=== PATIENT | male | born 1945 | race Caucasian/White ===

== ENCOUNTER 2019-09-15 15:14 | Inpatient (IN) | payer MEDICARE ==
[~2019-09-15] VITALS: Ht 187.9 cm; Wt 86.2 kg
[2019-09-15] MEDS ORDERED: NORVASC5 MG PO (15:23)
[2019-09-15] MEDS ORDERED: SINEMET 25-1001 EACH PO (15:24)
[2019-09-15] MEDS ORDERED: DEPAKOTE SPRIN125 MG PO ×2 (15:26→15:27)
[2019-09-15] MEDS ORDERED: NAMENDA10 MG PO (15:28)
[2019-09-15] MEDS ORDERED: NUPLAZID34 MG PO (15:33)
[2019-09-15] MEDS ORDERED: EXELON1 EAC2 TD (15:35)
[2019-09-15] MEDS ORDERED: FLOMAX0.4 MG PO (15:36)
[2019-09-15 17:13] VITALS: BP 138/63
--- NOTE | 2019-09-15 17:24 | NUR ---
THOMPSON MARSHALL a 73 year old M admitted via ambulance from the EMERGENCY ROOM as a voluntary BY POA admission. Arrived on unit at 1700. ALLERGIES: NKA. Vital signs are: 97.8-76-20 138/63 SPO2 98%RA. The client's POA verbally consented to the following forms with stated understanding: Authorization For The Release of Medical Information, Clothing List, Consent to Voluntary Admission and Hospitalization, Consent and Release Forms/Receipt of Rights, Acknowledgement of Advance Directive Information, Behavioral Health Consent Form, and Informed Consent of Medications, witnessed x 2 RNs. Admitted under the services of Dr. CEFERINO MELGAR,[facility]. A search was conducted and hazardous articles were removed. Client was oriented to the unit. CRISTI NOEL
--- NOTE | 2019-09-15 17:25 | NUR ---
Call placed to hospitalist #1 at [phone]. Dr. Persaud answered, made aware of new consult for medical management.
[2019-09-15] MEDS ORDERED: AUGMENTIN 875875 MG PO (17:32)
--- NOTE | 2019-09-15 17:45 | NUR ---
SHAHANA SOLIS SOCAIL WORKER UPDATED ON PT ADMISSION AND VOLUNTARY BY POA STATUS.
--- NOTE | 2019-09-15 17:47 | NUR ---
DR WALLACE ON THE UNIT TO ASSESS PT.
[2019-09-15 19:50] VITALS: BP 141/60
--- NOTE | 2019-09-15 20:30 | NUR ---
SHAHANA SOLIS ON UNIT TO SEE PATIENT
--- NOTE | 2019-09-15 21:53 | NUR ---
PSYCHOSOCIAL HX COMPLETED THIS DATE.
--- NOTE | 2019-09-15 23:34 | NUR ---
P-CONFUSION,IRRITABLE, DEMANDING I-REDIRECTION WITH 1:1 THERAPEUTIC INTERVENTIONS AND PRESENT REALITY. EDUCATE AND ENCOURAGE MEDICATION COMPLIANCE. R-PATIENT MEDICATION COMPLIANT AT HS. PATIENT PROVIDED NOURISHMENT AND FLUIDS AT HS. PATIENT ISOLATIVE AT TIMES AND WITH LIMITED INTERACTION WITH PEERS THIS SHIFT. PATIENT IRRITABLE THIS SHIFT WHEN NOT ABLE TO KEEP A CORDLESS PHONE IN HIS ROOM OVERNIGHT. PATIENT REDIRECTED WITH EFFECTIVE RESULTS. PATIENT WITH NO SUICIDAL OR HOMICIDAL IDEATIONS. PATIENT WITH NO DELUSIONS OR HALLUCINATIONS AT THIS TIME. PATIENT WITH SMITH CATHETER IS PATENT AND DRAINING CLOUDY YELLOW URINE. P-CONTINUE TO ENCOURAGE MEDICATION COMPLIANCE, CONTINUE TO PRESENT REALITY, ENCOURAGE GROUP THERAPY WHILE AWAKE
--- NOTE | 2019-09-16 06:21 | NUR ---
REFUSED ALL AM LAB WORK
--- NOTE | 2019-09-16 07:46 | NUR ---
Patient eating breakfast in dining room with peers. Respirations easy and regular. Vital signs stable. No overt distress. NAOMI CUEVAS
[2019-09-16 08:16] VITALS: BP 128/64
--- NOTE | 2019-09-16 10:30 | NUR ---
on unit to see pt at this time.
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
[2019-09-16 20:00] VITALS: BP 148/77
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
--- NOTE | 2019-09-16 22:05 | NUR ---
PLACED CLOSER TO NURSES DESK FOR SAFETY. UNABLE TO REDIRECT. CALLING FOR SULMA. EMOTIONAL SUPPORT PROVIDED
--- NOTE | 2019-09-16 22:10 | NUR ---
PLACED CLOSER TO NURSES DESK FOR SAFETY. UNABLE TO REDIRECT. CALLING FOR SULMA. EMOTIONAL SUPPORT PROVIDED
--- NOTE | 2019-09-16 22:41 | NUR ---
ATIVAN 1MG IM GIVEN CLIENT UNABLE TO BE CALMED WITH EMOTIONAL SUPPORT, 1:1 OR FOOD. POUNDING ON TABLE AND SWINGING AT STAFF. WILL CONTINUE TO MONITOR FOR EFFECTIVENESS AND SAFETY
--- NOTE | 2019-09-16 23:20 | NUR ---
ATIVAN APPEARS EFFECTIVE. RESTING QUIET WITH EYES CLOSED,
--- NOTE | 2019-09-17 00:19 | NUR ---
24 HR chart check completed.
--- NOTE | 2019-09-17 06:10 | NUR ---
SLEPT 6-7 HOURS IN CHAIR UNINTERUPTED. MOVED SELF IN CHAIR.
[2019-09-17 07:09] LABS: BASO % 0.5 % (0.0-1.0); EOS # 0.2 10*3/uL (0.0-0.4); EOS % 2.4 % (1.0-4.0); LYMPH # 1.3 10*3/uL (1.3-4.4); LYMPH % 17.7 % (27.0-41.0); MEAN CELL VOLUME 90.7 fl (80.0-94.0); MEAN CORPUSCULAR HGB 29.9 pg (27.0-31.0); MEAN CORPUSCULAR HGB CONC 32.9 g/dl (33.0-37.0); MEAN PLATELET VOLUME 9.7 fl (9.6-12.3); MONO # 0.9 10*3/uL (0.1-1.0); NEUT # 4.9 10*3/uL (2.3-7.9); NEUT % 66.4 % (47.0-73.0); PLATELET COUNT AUTOMATED 232 10*3/uL (130-400); RED BLOOD COUNT 4.52 10*6/uL (4.50-5.90); RED CELL DISTRI WIDTH 13.1 % (0-14.5); WHITE BLOOD COUNT 7.4 10*3/uL (4.8-10.8)
[2019-09-17 07:25] LABS: ALBUMIN 2.9 gm/dl (3.1-4.5); ALKALINE PHOSPHATASE 57 U/L (45-117); BUN 15 mg/dl (7-24); CHLORIDE 107 mmol/L (98-107); CHOLESTEROL 148 mg/dL (<200); CREATININE 0.88 mg/dL (0.70-1.30); HDL CHOLESTEROL 58 mg/dl (40-60); LDL CHOLESTEROL 75 mg/dL (9-159); POTASSIUM 3.9 mmol/L (3.5-5.1); SGOT/AST 21 IU/L (3-35); SGPT/ALT 16 U/L (12-78); SODIUM 142 mmol/L (136-145); TOTAL PROTEIN 6.7 gm/dL (6.4-8.2); TRIGLYCERIDES 76 mg/dl (<150); VALPROIC ACID (DEPAKENE) 37.8 ug/ml (50-100); VLDL CHOLESTEROL 15 mg/dL (6-40)
[2019-09-17 07:44] VITALS: BP 140/72
[2019-09-17 08:01] LABS: VITAMIN D, 25-HYDROXY 26.2 ng/mL (30-100)
--- NOTE | 2019-09-17 10:53 | NUR ---
DR RODRIGUEZ ON UNIT TO ASSESS PT, UPDATE PROVIDED.
--- NOTE | 2019-09-17 16:48 | NUR ---
P: PT IRRITABLE WITH STAFF AT TIMES. PT DISRUPTIVE TO REY MILEUI, YELLING OUT FOR "ODILON" MULTIPLE TIMES THROUGHOUT THE SHIFT, POUNDING ON THE TABLE. PT RESTLESS, ATTEMPTING TO PULL AT SMITH CATHETER. PT COMBATIVE WITH STAFF AT TIMES, ATTEMPTING TO HIT. PT RESISITIVE WITH AM PO MEDS, SPITTING THEM OUT. I: PROVIDE EMOTIONAL SUPPORT AND 1:1 FOR PT TO VOICE FEELINGS, ENCOURAGE MED COMPLIANCE AND PROVIDE MED EDUCATION, PROVIDE LOW STIMULATION ENVIRONMENT FOR PT TO CALM R: PT ALERT TO PERSON ONLY, CONFUSION AND SHORT TERM MEMORY DEFICITS NOTED PER PT BASELINE. PT CONTINUES TO BE RESTLESS AT TIMES, CONTINUES TO YELL OUT AT TIMES, LOW STIMULATION ENVIRONMENT MINIMALLY EFFECTIVE. NO HALLUCINATIONS NOTED AT THIS TIME. PT UP TO A GERICHAIR D/T INABILITY TO AMBULATE INDEPENDENTLY , PT REQUIRES 1-2 STAFF ASSIST FOR CARE. PT SMITH REMAINS INTACT, DRAINING CLOUDY, YELLOW URINE. PT INCONTINENT OF BOWEL, CARE PROVIDED NEEDED. P: MONITOR PT BEHAVIORS ON Q15 MIN SAFETY CHECKS, ENCOURAGE MED COMPLIANCE, UNABLE TO PROVIDE MED EDUCATION D/T COGNITION, PROVIDE EMOTIONAL SUPPORT AND 1:1 FOR PT TO VOICE FEELINGS, PROVIDE LOW STIMULATION ENVIRONMENT FOR PT TO CALM.
[2019-09-17 20:00] VITALS: BP 145/76
--- NOTE | 2019-09-17 22:05 | NUR ---
PT YELLING OUT "HURRY HURRY HURRY" REPEATEDLY AND BANGING ON TABLE, INCREASED RESTLESSNESS AND AGITATION. 1:1 PROVIDED FOR TO VOICE FEELINGS, LOW STIMULATION ENVIRONEMENT PROVIDED, OFFERED FOOD/FLUIDS, ALL INTERVENTIONS INEFFECTIVE, PT MEDICATED WITH ATIVAN 1 MG PO PRN PER ORDERS. WILL CONTINUE TO MONITOR.
--- NOTE | 2019-09-17 23:09 | NUR ---
ATIVAN NOT EFFECTIVE AT THIS TIME. MOVED CLIENT TO DININGROOM HE IS POUNDING ON TRAY AND YELLING OUT, DISRUPTING CLIENTS TRYING TO SLEEP. CLIENT CONFUSED AND DISORIENTED TO PLACE AND TIME UNABLE TO REDIRECT. CONTINUING TO MONITOR CLOSELY
--- NOTE | 2019-09-18 00:29 | NUR ---
RESTING QUIET AT THIS TIME
--- NOTE | 2019-09-18 00:29 | NUR ---
RESTING QUIET AT THIS TIME
--- NOTE | 2019-09-18 02:37 | NUR ---
24 HR chart check completed.
--- NOTE | 2019-09-18 06:11 | NUR ---
SLEPT 7 UNINTERUPTED HOURS. MOVED SELF AROUND IN CHAIR
--- NOTE | 2019-09-18 06:11 | NUR ---
SLEPT 7 UNINTERUPTED HOURS. MOVED SELF AROUND IN CHAIR
--- NOTE | 2019-09-18 07:02 | NUR ---
THOMPSON MARSHALL [id number] Please refer to the physician's history and physical for past medical history, comorbid conditions, and allergies. Diagnosis: INTERMITTENT EXPLOSIVE DISORDER Giancarlo Score: 13,MODERATE RISK WOUND DESCRIPTIONS: Wound Number: 1 Location of the wound: left wrist Type of wound: skin tear Thickness: Full Size: 1.6cm x 1.2cm x <0.1cm Tunneling: none Undermining: none Sinus Tract: none Presence of Exudate: none Amount: None Color: brown, red Odor: None Periwound Skin Appearance: Normal Wound edges: approximated Pain (associated with wound): none at time of assessment How does patient state this happened? pt stated he bumped it but not sure on what Intact scab to dorsal right hand. no redness noted at time of assessment. no drainage at time of assessment Surface the patient is resting on: Proform SKIN PREVENTION RECOMMENDATION: 1. Pressure redistribution support surface as appropriate 2. Elevate heels 3. Remove boots/TEDS every shift and reapply 4. Head of bed 30 degrees as tolerated 5. Assess nutrition and hydration 6. Manage moisture 7. Avoid the use of containment devices while in bed 8. Use absorptive products on surfaces limit layers of linens on bed 9. Turn and reposition every 1-2 hours in bed and every 1 hour in chair as tolerated 10. Weight shifts every 15 minutes while up in chair 11. Offloading with pillows or device to keep heels elevated off bed 12. Monitor skin at least every shift 13. Inspect under medical devices twice a day WOUND TREATMENT RECOMMENDATIONS: Babar skin tear guidelines: Cleanse left wrist with nss and apply sureprep around the wound therahoney to wound bed and cover with optifoam gentle every 2 days and prn for soiling
[2019-09-18 07:42] VITALS: BP 125/70
--- NOTE | 2019-09-18 07:59 | NUR ---
Occupational therapy orders and nursing screen received. Will follow up with patient for completion of an OT evaluation. Thank you. Kellie Michelle, OTR/L
--- NOTE | 2019-09-18 08:13 | NUR ---
PHYSICAL THERAPY Screen and PT eval received will follow thank you Briana Weston PT
--- NOTE | 2019-09-18 08:15 | NUR ---
Treatment Plan meeting was held via telephone with Dr. Clay, LUAN Stokes RN and Manufacturing Engineer Chief. Plan for discharge next week. Pt. came [facility]. Will reach out to facility today to discuss discharge Plans.
--- NOTE | 2019-09-18 09:38 | NUR ---
PHYSICAL THERAPY Physical therapy evaluation attempted. Patient lethargic and unable to follow commands to participate in skilled PT evaluation this date. Will attempt PT evaluation again at a later date. Thank you. Karly Long,PT,DPT.
--- NOTE | 2019-09-18 09:38 | NUR ---
SPEECH PATHOLOGY Nursing screen complete. Reports indicate patient underwent a recent swallow study at [facility] and did well, with mechanical soft diet recommended. There are no reports of swallowing difficulty therefore services do not appear indicated at this time. This dept. will be available if future needs arise. JANAK GUERRERO MSCCC-PHOTOGRAPHER'S MODEL
--- NOTE | 2019-09-18 10:21 | NUR ---
Occupational Therapy evaluation attempted 09/18/2019. Pt presented lethatic and unable to participate in skilled OT evaluation. Will attempt OT evlauation again at a later date. Thank you for this referral. Lachelle Barnett OTR/L
--- NOTE | 2019-09-18 10:58 | NUR ---
Dr. Farmer notified of wound care recommendations.
--- NOTE | 2019-09-18 11:43 | NUR ---
Spoke with Patient Alecia Villa via telephone. Discussed Discharge Plans for Next week. Pt. would like him to return to [facility]. reports that patient follows with Dr. Coronel in [place] for Urinary Retention and Enlarged Prostate Issues.
--- NOTE | 2019-09-18 13:28 | NUR ---
PT quiet this am, sleeping in chair thus far this shift, appetite fair, medication compliant. Pt continues to drool with out awareness to self. No tremors or other movements noted. At this time pt is pleasant cooperative with all aspects of care. continue with monitoring at this time
--- NOTE | 2019-09-18 14:45 | NUR ---
Spoke with Ml at [facility]. Plan is for pt. to return to facility when behaviors stabalize. Clinical Updates faxed to facility [phone].
--- NOTE | 2019-09-18 15:28 | NUR ---
Shift chart check completed.
--- NOTE | 2019-09-18 20:51 | NUR ---
CLIENT POUNDING ON TABLE YELLING FOR PHONE. WANTS REPORT ON THEN STARTS WORD SALAD. ANSWERS MY QUESTIONS WITH 1 AND 2 WORD. STARTED TALKING ABOUT GOLF SCRAMBLE AND GOLF T'S. MEDICATION COMPLIANT. WILL CONTINUE TO MONITOR CLOSELY
--- NOTE | 2019-09-18 21:40 | NUR ---
APPEARS TO BE RESTING QUIET AT THIS TIME
--- NOTE | 2019-09-18 22:24 | NUR ---
SLEEPING IN BED AT THIS TIME
--- NOTE | 2019-09-18 22:25 | NUR ---
SLEEPING IN BED AT THIS TIME
--- NOTE | 2019-09-19 02:08 | NUR ---
24 HR chart check completed.
--- NOTE | 2019-09-19 03:34 | NUR ---
Upon discharge recommend patient to follow up for wound care in outpatient setting continue current wound care orders at discharging facility.
--- NOTE | 2019-09-19 04:35 | NUR ---
RESTLESS IN BED. ORAL CARE DONE. GURGLING AND DROOLING NOTED. SUCTIONED FOR SCANT WHITE/CLEAR SPUTUM. GOT CLIENT INTO CHAIR AND BROUGHT TO QUIET ROOM. YELLING OUT AND POUNDING ON TABLE. EMOTIONAL SUPPORT PROVIDED.
--- NOTE | 2019-09-19 06:18 | NUR ---
SLEPT APPROX 6.5 HOURS IN BED
[2019-09-19 07:45] VITALS: BP 142/62
--- NOTE | 2019-09-19 08:15 | NUR ---
Treatment Plan meeting was held via telephone with Dr. Clay, LUAN Stokes RN, CD REACTOR OPERATOR-S and Construction Equipment Overhauler. Plan for discharge Next week. Plan for return to [facility].
--- NOTE | 2019-09-19 09:58 | NUR ---
PHYSICAL THERAPY Physical Therapy evaluation completed on 3N with full evaluation to follow. Moderate complexity PT evaluation, per chart review and evaluation, [id number]. Recommend physical therapy per plan of care and return to assisted living facility upon discharge. Thank you for this referral. Karly Long,PT,DPT
--- NOTE | 2019-09-19 10:34 | NUR ---
Occupational Therapy evaluation completed on 3N with full evaluation to follow. Recommend occupational therapy per plan of care and return to [facility] upon discharge. Thank you for this referral. Lachelle Barnett OTR/L
[2019-09-19 19:59] VITALS: BP 133/67
--- NOTE | 2019-09-19 23:41 | NUR ---
P-CONFUSION,IRRITABLE, AGGRESSIVE, DISRUPTIVE, YELLING OUT I-REDIRECTION WITH 1:1 THERAPEUTIC INTERVENTIONS AND PRESENT REALITY. EDUCATE AND ENCOURAGE MEDICATION COMPLIANCE. R-PATIENT REFUSED MEDICATION COMPLIANT AT HS. PATIENT REFUSED NOURISHMENT AND FLUIDS AT HS. PATIENT ISOLATIVE AT TIMES THROUGHOUT SHIFT. PATIENT IRRITABLE THIS SHIFT AND AGGRESSIVE WITH NURSING STAFF. PATIENT GRABBING NURSES ARMS AND HANDS. PATIENT THROWING OBJECTS IN QUIET ROOM AND HITTING OBJECTS IN QUIET ROOM. PATIENT YELLING OUT WITH NONSENSICAL SPEECH. PATIENT DISROBING THIS SHIFT. PATIENT WITH NO SUICIDAL OR HOMICIDAL IDEATIONS. PATIENT WITH NO DELUSIONS OR HALLUCINATIONS AT THIS TIME. PATIENT WITH SMITH CATHETER IS PATENT AND DRAINING CLOUDY YELLOW URINE. P-CONTINUE TO ENCOURAGE MEDICATION COMPLIANCE, CONTINUE TO PRESENT REALITY, ENCOURAGE GROUP THERAPY WHILE AWAKE
--- NOTE | 2019-09-20 06:35 | NUR ---
Patient slept approx. 6 hours throughout shift with a few restless moments. Q 15 minute safety checks continued and maintained.
--- NOTE | 2019-09-20 07:20 | NUR ---
PHYSICAL THERAPY Patient seen this am for therapy visit and was sitting semi reclined in Quiet room [facility] chair upon therapist arrival. Patient identified by name / and was joined by OT integration assistant who was present for observation only this session. Patient presented with increased "drooling" and responded verbally in a "mumbling" tone at times which made it difficult to understand. Patient transported via [facility]a chair to [facility] and performed several sit to stand transfers, B UE support at rail, MIN A x 2, tolerating approx 1 minute static stand. Patient demonstrated POOR upright posture, secondary to increased B knne flexion contracture and NBOS. Patient also ambulated at raar, 8'x 1, single handrail support, SOLAR INSTALLATION FOREMAN/MOD, demonstrating increased difficulty picking up / advancing feet, with decreased stride. Patient needed therapist assist to promote weight shifting, including v/c to stand tall. Patient returned to [facility] chair with body alarm / lap tray and remained in activity room under [facility] staff Supervision awaiting breakfast. Will continue per POC as tolerated, total treatment time 14 minutes. Jerrod Kaiser, ANCHOR OPERATOR
--- NOTE | 2019-09-20 07:40 | NUR ---
OT NOTE Prior to coming to the floor spoke with nurse Lawson and reported that therapy was coming to the floor to treat this pt. Pt was seen this A.M. 1:1 for 20 minute OT session with CIDER MAKER and nursing staff present for observation only. Upon arrival pt was sitting upright in the irina chair in the quiet room. Pt identified by name and on wristband. PROM completed to BUE shoulder, elbow, wrist, and digit joints over all planes of motion for 1 X 10. Pt was much more resistive to movement to his LUE than his RUE with constant verbal and tactile prompts for relaxation techniques. Pt was then taken out to the hallway where he completed multiple sit to stand transfers from chair level with Manny X 2 and use of hand rail for UE support. Challenged pt's static standing tolerance needed for increased I in self care tasks and functional transfers, pt was able to tolerate aprox 60 seconds at a time before sitting due to fatigue. Pt was left sitting upright in the irina chair in the dining acosta under [facility] staff supervision, body alarm activated for safety, and lap tray in place. Continue with rec D/C plan to return to [facility]. ALYSSA Larsen/Nahum
[2019-09-20 08:00] VITALS: BP 141/65
--- NOTE | 2019-09-20 08:15 | NUR ---
Treatment Plan meeting was held via telephone with Dr. Clay RN, TAILMAN-S and Kaiawhina. Plan for discharge Next Week. Plan is for Pt. to return to [facility] if Behaviors are manageable. Pt. may require SNF. Will discuss with Pt. .
--- NOTE | 2019-09-20 08:58 | NUR ---
rounded and updated on pt progress via telemedicine. Medication orders updated per .
[2019-09-20 11:25] LABS: BASO # 0.1 10*3/uL (0.0-0.1); BASO % 0.6 % (0.0-1.0); EOS # 0.1 10*3/uL (0.0-0.4); EOS % 0.9 % (1.0-4.0); HEMATOCRIT 42.1 % (42.0-52.0); LYMPH # 1.5 10*3/uL (1.3-4.4); LYMPH % 17.1 % (27.0-41.0); MEAN CELL VOLUME 91.7 fl (80.0-94.0); MEAN CORPUSCULAR HGB 29.4 pg (27.0-31.0); MEAN CORPUSCULAR HGB CONC 32.1 g/dl (33.0-37.0); MEAN PLATELET VOLUME 9.8 fl (9.6-12.3); MONO # 0.9 10*3/uL (0.1-1.0); MONO % 10.7 % (3.0-9.0); NEUT % 69.9 % (47.0-73.0); PLATELET COUNT AUTOMATED 229 10*3/uL (130-400); RED BLOOD COUNT 4.59 10*6/uL (4.50-5.90); RED CELL DISTRI WIDTH 13.2 % (0-14.5); WHITE BLOOD COUNT 8.6 10*3/uL (4.8-10.8)
[2019-09-20 11:41] LABS: BUN 20 mg/dl (7-24); CHLORIDE 108 mmol/L (98-107); CREATININE 0.84 mg/dL (0.70-1.30); POTASSIUM 4.4 mmol/L (3.5-5.1); SODIUM 142 mmol/L (136-145)
--- NOTE | 2019-09-20 13:12 | NUR ---
DR. CLIFTON MADE AWARE THAT PT HAS SIGNIFICANT DECLINE IN FUNCTIONAL ABILITY. PT IS NO LONGER VERBAL, PO INTAKE POOR, PT HAS DIFFUSE RHONCHI, LUNG SOUNDS DIMINISHED A&P. MADE AWARE OF DOWNGRADED DIET ORDER, AND ORDER FOR SPEECH CONSULT PLACED YESTERDAY. DR. CLIFTON STATES TO AWAIT SPEECH CONSULT AND POC CAN BE GUIDED FROM THERE.
[2019-09-20 20:00] VITALS: BP 129/73
--- NOTE | 2019-09-20 21:56 | NUR ---
P-CONFUSION,IRRITABLE, DISRUPTIVE I-REDIRECTION WITH 1:1 THERAPEUTIC INTERVENTIONS AND PRESENT REALITY. EDUCATE AND ENCOURAGE MEDICATION COMPLIANCE. R-PATIENT REFUSED MEDICATION COMPLIANT AT HS. PATIENT PROVIDED NOURISHMENT AND FLUIDS AT HS. PATIENT ISOLATIVE IN DINING AREA THROUGHOUT SHIFT. PATIENT IRRITABLE AND YELLING OUT AT TIMES SHIFT NURSING STAFF. PATIENT THROWING OBJECTS IN QUIET ROOM AND MOVING FURNITURE IN QUIET ROOM. PATIENT YELLING OUT WITH NONSENSICAL SPEECH AT TIMES. PATIENT DISROBING THIS SHIFT. PATIENT WITH NO SUICIDAL OR HOMICIDAL IDEATIONS. PATIENT WITH NO DELUSIONS OR HALLUCINATIONS AT THIS TIME. PATIENT WITH SMITH CATHETER IS PATENT AND DRAINING CLOUDY YELLOW URINE. P-CONTINUE TO ENCOURAGE MEDICATION COMPLIANCE, CONTINUE TO PRESENT REALITY, ENCOURAGE GROUP THERAPY WHILE AWAKE
--- NOTE | 2019-09-21 06:22 | NUR ---
Patient slept approx. 2 hours throughout shift. Q 15 minute safety checks continued and maintained.
--- NOTE | 2019-09-21 07:32 | NUR ---
PHYSICAL THERAPY Physical therapy treatment session complete. Total treatment time: 16 minutes. Patient agreeable to skilled PT services. Patient in dining room at beginning of session, and taken into hallway for participation. OT present throughout treatment. Patient taken to railing for sit to stand activity from irina chair. Patient's hands placed on rail with assistance. Standing x2. Initial stand Joaquim x2 with verbal and tactile cueing for increased upright posture. Patient able to stand 24 seconds. Patient returned to seated position. Second attempt to stand ModA x2. Patient able to stand for 60 seconds and then returned to seated position in chair. Patient rested ~2 minutes. Patient transferred to standing position at FWW, ModA. Patient assisted to place hands on walker, and attempted to walk. Patient required verbal and tacile cueing for slight progression of left and right LE in forward motion. Patient having difficulty initiating steps forward. Able to progress 1' forward/back with Mod-MaxA. Patient returned to seated position. Seated therapeutic exercises performed, including seated alternating marching x10 and seated bilateral LAQ x10. Patient educated to take large steps and mimic high stepping with kicking foward to progress gait. Patient transferred to standing, Min-Mod and stood at FWW. Patient able to perform high knee with forward kicking x3 bilaterally. Patient unable to progress forward with gait this date. Patient returned to seated position and taken to dining room for breakfast. Patient would benefit from SNF at discharge to return to [facility]. Recommend SNF. Thank you. Karly Long,PT,DPT.
--- NOTE | 2019-09-21 07:50 | NUR ---
OT NOTE Prior to coming to the floor spoke with nurse Lawson and reported that therapy was coming to treat this pt. Pt was seen this A.M. 1:1 for 20 minute OT session with PT and nursing staff present for observation only. Upon arrival pt was sitting semi reclined in the irina chair in the dining acosta. Pt identified by name and on wristband. Pt was taken out to the hallway where he completed multiple sit to stand transfers from chair level with min-modA X 2 and use of hand rail for UE support. Challenged pt's static standing tolerance needed for increased I in self care tasks and functional transfers. Pt was able to tolerate aprox 24 seconds the first trial and then aprox 60 seconds for all other attempts. Pt completed gentle AROM to BUE shoulder, elbow, wrist, and digit joints over all planes of motion for 1 X 10 to increase and restore maximum functional use. Pt was left sitting upright in the dining acosta in his irina chair with lap tray in place, body alarm activated for safety, and under [facility] staff supervision. Continue with rec D/C plan to return to [facility]. ALYSSA Larsen/Nahum
[2019-09-21 07:55] VITALS: BP 137/67
--- NOTE | 2019-09-21 08:00 | NUR ---
Patient in dining room eating breakfast with peers. Respirations easy and regular. Vital signs stable. No overt distress. Telehealth assessment by VIKAS Watson. Updates provided. CRISTI NOEL
--- NOTE | 2019-09-21 08:15 | NUR ---
Treatment Plan meeting was held via telephone with LUAN Stokes RN, CORPORATE LEGAL SECRETARY-S and Real Estate Associate Attorney. Plan for discharge next Week. Unsure at this point if Pt. is appropriate for Return to [facility]. Laundry Housekeeping Aide to speak with today.
--- NOTE | 2019-09-21 09:20 | NUR ---
KYRA BELTRAN SAP PP CONSULTANT ON UNIT TO ASSESS PT, UPDATE PROVIDED.
--- NOTE | 2019-09-21 10:35 | NUR ---
Left a voicemail message for pt's Radha Morel requesting a return call to discuss discharge needs.
--- NOTE | 2019-09-21 10:49 | NUR ---
Family mtg with pt's Radha Morel about pt's discharge needs. Radha Morel voiced understanding that pt is currently requiring a higher LOC than [facility] can provide. Discussed NFs. Radha Morel stated that she is open to different vicinities for NFs. She requests that it not be [facility]. Depending on pt's behaviors, she would like a referral to [facility] and [facility]. It was decided that this verse writer would contact Radha Morel on Tuesday to discuss further. The hope is that pt's behaviors will be more controlled, which will enable the referrals to be made to the preferred NFs.
--- NOTE | 2019-09-21 11:16 | NUR ---
PT ANALY CALLED IN FOR UPDATE, UPDATE PROVIDED.
--- NOTE | 2019-09-21 14:29 | NUR ---
GROUP THERAPY PT PRESENT FOR MOVIES, SNACK, AND REMINISCING; HOWEVER, PT WAS INTERMITTENTLY DISRUPTIVE. PT WENT TO QUIET ROOM FOR LESS STIMULATION.
--- NOTE | 2019-09-21 14:46 | NUR ---
OCCUPATIONAL THERAPY CO-SIGN I approve of the Occupational Therapy notes written above. Lachelle Barnett OTR/L
[2019-09-21 20:00] VITALS: BP 138/72
--- NOTE | 2019-09-22 01:19 | NUR ---
P-CONFUSION,IRRITABLE, DISRUPTIVE I-REDIRECTION WITH 1:1 THERAPEUTIC INTERVENTIONS AND PRESENT REALITY. EDUCATE AND ENCOURAGE MEDICATION COMPLIANCE. R-PATIENT MEDICATION COMPLIANT AT HS. PATIENT PROVIDED NOURISHMENT AND FLUIDS AT HS. PATIENT ISOLATIVE IN QUIET ROOM AT HS. PATIENT IRRITABLE AND YELLING OUT AT TIMES "NONI" AND "DEVONTE". PATIENT BANGING ON OBJECTS AND REDIRECTION PROVIDED FROM BANGING ON OBJECTS. PATIENT WITH NO SUICIDAL OR HOMICIDAL IDEATIONS. PATIENT WITH NO DELUSIONS OR HALLUCINATIONS AT THIS TIME. PATIENT SMITH CATHETER FOUND OUT AND LAYING ON GROUND. PATIENT PLACED IN BED. SMITH CATHETER REINSERTED WITH 18F/10ML. STERILE TECHNIQUE USED. PATIENT TOLERATED SMITH INSERTION WITHOUT DIFFICULTY. PATIENT SMITH CATHETER IS PATENT AND DRAINING CLOUDY YELLOW URINE. P-CONTINUE TO ENCOURAGE MEDICATION COMPLIANCE, CONTINUE TO PRESENT REALITY, ENCOURAGE GROUP THERAPY WHILE AWAKE
--- NOTE | 2019-09-22 05:46 | NUR ---
PATIENT SLEPT 7 HOURS OF UNINTERRUPTED SLEEP THROUGHOUT SHIFT. Q 15 MINUTE CHECKS MAINTAINED. 24 HR chart check completed.
[2019-09-22 07:29] VITALS: BP 138/64
--- NOTE | 2019-09-22 09:31 | NUR ---
KYRA BELTRAN WAGE HAND ON UNIT TO ASSESS PT, UPDATE PROVIDED. PER KYRA SHE WILL ORDER SOMETHING FOR PTS BOWELS.
--- NOTE | 2019-09-22 11:49 | NUR ---
THIS NURSE APPROACHED PT IN THE DINING ROOM, PT OBSERVED TO SITTING CALMLY, UPPER LIP BLUE. VS [id number]/69-88%RA. THIS NURSE ENCOURAGED PT TO DEEP BREATH AND COUGH. PT O2 SAT INCREASED TO 96%RA. SPOKE WITH KYRA BELTRAN PAYROLL AND BENEFITS ASSISTANT, PER KYRA ORDER CHEST XRAY AND SPEECH CONSULT.
--- NOTE | 2019-09-22 12:09 | NUR ---
CALLED IN FOR UPDATE, UPDATE PROVIDED.
--- NOTE | 2019-09-22 13:17 | NUR ---
SPOKE WITH KYRA BELTRAN, UPDATED ON CHEST XRAY RESULTS, NO FURTHER ORDERS AT THIS TIME. WILL CONTINUE TO MONITOR PT.
--- NOTE | 2019-09-22 13:27 | NUR ---
PT SUCTIONED X1, SMALL AMOUNT OF WHITE/CLEAR FOAMY PHLEGM. PT TOELRATED WITHOUT ISSUE. WILL CONTINUE TO MONITOT PT.
--- NOTE | 2019-09-22 13:30 | NUR ---
P: PT ISOALTIVE TO SELF/ROOM THROUGHOUT THE DAY. PT MOOD IS DEPRESSED, STATING "I'M SOMEWHERE BETWEEN DEPRESSED AND HAPPY." I: PROVIDE EMOTIONAL SUPPORT AND 1:1 FOR PT TO VOICE FEELINGS, ENCOURAGE MED COMPLIANCE AND PROVIDE MED EDUCATION, ENCOURAGE GROUP PARTICIPATION AND SOCIALIZATION. R: PT ALERT TO PERSON, PLACE, TIME AND SITUATION. PT MED COMPLIANT WITHOUT DIFFICULTY, MED EDUCATION PROVIDED. PT CALM, MOOD REMAINS DEPRESSED. PT CONTINUES TO BE ISOLATIVE TO SELF/ROOM THROUGHOUT THE DAY, ONLY COMING OUT OF THE DINING ROOM FOR MALS. NO HALLUCINATIONS OR DELUSIONS NOTED. PT DENIES ANY SUICIDAL THOUGHTS OR BEHAVIORS AT THIS TIME, VERBALLY CONTRACTS FOR SAFETY. PT AMBULATORY THROUGHOUT UNIT, GAIT STEADY. PT CONTINENT OF BOWEL AND BLADDER. P: MONITOR PT BEHAVIORS ON Q15 MIN SAFETY CHECKS, ENCOURAGE MED COMPLIANCE AND PROVIDE MED EDUCATION, ENCOURAGE GROUP PARTICIPATION AND SOCIALIZATION, PROVIDE EMOTIONAL SUPPORT AND 1:1 FOR PT TO VOICE FEELINGS.
--- NOTE | 2019-09-22 15:27 | NUR ---
THIS NURSE WENT TO ASSESS PT IN THE DINING ROOM, OBSERVED PT UPPER LIP TO BE BLUE AND FINGERNAILS TURNING BLUE. TEMP- 97.6, PULSE WAS FLUCUATING FROM 68 TO 74-TO 40 UP TO 141W-R-78-BP 110/70, SPO2 WAS FLUCUATING FROM 75% TO 83% TO 88% UP TO 99%. RAPID RESPONSE CALLED AT 1527. NURSE EDUCATOR TEAM ON THE UNIT TO ASSESS PT, UPDATE PROVIDED AND NEW ORDERS RECEIVED. 1559 CALLED AND UPDATED ON PT MOVING TO [address] LOPEZ REMAINS ON THE UNIT AND DECIDED TO MOVE PT TO ICCU AFTER COMPLETION OF HEAD CT. 1605 PT OFF THE UNIT TO RADIOLLOGY FOR HEAD CT, ESCORTED BY TRANSPORT, RN AND MHW. 1611-JULISSA DIAZ NP UPDATED ON PT CHANGE IN CONDITION AND DISCHARGE TO THE ICCU. 1626-PT TAKEN TO ICCU BED 7, REPORT GIVEN TO CHARLIE. 1631- CALLED AND UPDATED ON PT BEING ADMITTED TO THE ICCU RATHER THAN THE 5TH FLOOR.
[2019-09-22 15:59] LABS: ABG BASE EXCESS 6.1 mmol/L (-2.0-2.0); ARTERIAL BLOOD GAS PH 7.435 (7.35-7.45)
[2019-09-22 16:09] LABS: BUN 22 mg/dl (7-24); CHLORIDE 108 mmol/L (98-107); CREATININE 0.87 mg/dL (0.70-1.30); POTASSIUM 4.2 mmol/L (3.5-5.1); SODIUM 143 mmol/L (136-145)
[2019-09-22] MEDS ORDERED: SEROQUEL25 MG PO (16:16)
[2019-09-22] MEDS ORDERED: SEROQUEL50 MG PO (16:16)
[2019-09-22] MEDS ORDERED: COGENTIN0.5 MG PO (16:17)
[2019-09-22] MEDS ORDERED: DEPAKOTE SPRIN125 MG PO ×2 (16:18→16:19)
[2019-09-22 16:20] LABS: TROPONIN I < 0.015 ng/ml (<0.045)
--- NOTE | 2019-09-22 16:56 | NUR ---
PT DISCHARED TO ICCU DUE TO RAPID RESPONSE BEING CALLED, UNABLE TO TAKE WOUND PHOTOS AT THIS TIME.
== END 2019-09-22 16:04 | disposition short-term general hospital (02) | DRG 883 ==
LOC: 3N 15:14
PROVIDERS: Internal Medicine; ADMIT Psychiatry & Neurology Psychiatry
DX: F63.81 Intermittent explosive disorder (principal); F02.81 Dementia in other diseases classified elsewhere, unspecified severity, with behavioral disturbance; G20 Parkinson's disease; D64.9 Anemia, unspecified; I10 Essential (primary) hypertension; G30.9 Alzheimer's disease, unspecified; N40.1 Benign prostatic hyperplasia with lower urinary tract symptoms; R33.8 Other retention of urine; Z87.01 Personal history of pneumonia (recurrent); Z79.899 Other long term (current) drug therapy

== ENCOUNTER 2019-09-22 16:07 | Inpatient (IN) | payer MEDICARE ==
[~2019-09-22] VITALS: Ht 187.9 cm; Wt 79.8 kg
[~2019-09-22 16:07] MED LIST: AUGMENTIN 875875 MG PO; DEPAKOTE SPRIN125 MG PO; EXELON1 EAC2 TD; FLOMAX0.4 MG PO; NAMENDA10 MG PO; NORVASC5 MG PO; NUPLAZID34 MG PO; SINEMET 25-1001 EACH PO
[2019-09-22] MEDS ORDERED: SEROQUEL25 MG PO (16:16)
[2019-09-22] MEDS ORDERED: SEROQUEL50 MG PO (16:16)
[2019-09-22] MEDS ORDERED: COGENTIN0.5 MG PO (16:17)
[2019-09-22] MEDS ORDERED: DEPAKOTE SPRIN125 MG PO ×2 (16:18→16:19)
[2019-09-22 16:20] VITALS: BP 161/72
--- NOTE | 2019-09-22 16:20 | NUR ---
A 73, admitted to ICCU, under the services of SUSY Castano DO with a diagnosis of ALTERED MENTAL STATUS. Chief complaint is CHANGE IN MENTAL STATUS ON U. Patient arrived via stretcher from [place]. Monitor applied. Initial assessment completed. Vital signs taken and recorded. SUSY CASTANO DO notified of admission to the unit. Orders received. See assessment for past medical history, medications and allergies. Patient and/or family oriented to unit. [facility]. Clothing/patient valuable form completed. SERGEI ZAMORA
--- NOTE | 2019-09-22 17:15 | NUR ---
PATIENT AWAKE ALERT AND COMBATIVE AT THIS TIME. PULLING AT FEEDLOT MANAGER AND BLOOD PRESSURE CORDS. WHEN RNS ATTEMPTED TO REMOVE WIRES FROM FINGERS PATIENT ATTEMPTED TO SWING AT STAFF AND WAS TRYING TO LEAN UP AND BITE AT RNS. AT BEDSIDE. ORDERED STAT ATIVAN IM AND SOFT RESTRAINTS.
--- NOTE | 2019-09-22 19:56 | NUR ---
REVIEWED PSYCH MEDS WITH [facility] STAFF. NOTIFIED DR. NEVES OF MED REVIEW. ORDERS GIVEN TO RESTART PSYCH MEDS AND TO HOLD THE SEROQUEL AT THIS TIME.
[2019-09-22 20:00] VITALS: BP 152/85
[2019-09-23] VITALS: BP 158/76
--- NOTE | 2019-09-23 01:00 | NUR ---
PATIENT BECOMING AGITATED AND COMBATIVE WITH STAFF. PATIENT TRYING TO KICK AND BITE NURSES. PATIENT REFUSING PICTURES AT THIS TIME.
--- NOTE | 2019-09-23 01:35 | NUR ---
ATIVAN GIVEN AT THIS TIME. PATIENT BECOMING AGITATED AND THRASHING IN BED AND SHOUTING "PLAY IT" REPEATEDLY. WILL CONTINUE TO MONITOR PATIENT.
[2019-09-23 04:00] VITALS: BP 165/73
[2019-09-23 05:29] LABS: BUN 20 mg/dl (7-24); CHLORIDE 107 mmol/L (98-107); POTASSIUM 4.1 mmol/L (3.5-5.1); SODIUM 143 mmol/L (136-145)
[2019-09-23 05:30] LABS: CREATININE 0.86 mg/dL (0.70-1.30)
[2019-09-23 05:42] LABS: BASO # 0.1 10*3/uL (0.0-0.1); BASO % 0.7 % (0.0-1.0); EOS # 0.1 10*3/uL (0.0-0.4); EOS % 0.9 % (1.0-4.0); HEMATOCRIT 41.9 % (42.0-52.0); LYMPH # 1.2 10*3/uL (1.3-4.4); LYMPH % 17.6 % (27.0-41.0); MEAN CELL VOLUME 90.9 fl (80.0-94.0); MEAN CORPUSCULAR HGB 28.6 pg (27.0-31.0); MEAN CORPUSCULAR HGB CONC 31.5 g/dl (33.0-37.0); MEAN PLATELET VOLUME 10.3 fl (9.6-12.3); MONO # 0.5 10*3/uL (0.1-1.0); MONO % 6.7 % (3.0-9.0); NEUT # 5.1 10*3/uL (2.3-7.9); NEUT % 73.5 % (47.0-73.0); PLATELET COUNT AUTOMATED 275 10*3/uL (130-400); RED BLOOD COUNT 4.61 10*6/uL (4.50-5.90); RED CELL DISTRI WIDTH 13.2 % (0-14.5)
--- NOTE | 2019-09-23 07:16 | NUR ---
Shift chart check completed.
[2019-09-23 08:03] VITALS: BP 158/80
[2019-09-23 12:00] VITALS: BP 167/77
--- NOTE | 2019-09-23 12:05 | NUR ---
DRESSING TO LEFT FOREARM & COCCYX CHANGED PICTURES OF BOTH ALONG WITH LEFT HAND & RT HAND SO ABLE TO MONITOR & OPTIFOAM APPLIED OVER RT HAND
--- NOTE | 2019-09-23 12:34 | NUR ---
[facility] CALLED AND PATIENT READY FOR TRANSFER
--- NOTE | 2019-09-23 12:46 | NUR ---
JOANIE HERE - UP TO KJ WITH 2 MAX ASSIST.. BELONGINGS GIVEN TO STAFF
== END 2019-09-23 12:46 | disposition home health service (06) | DRG 71 ==
LOC: ICCU 16:07
PROVIDERS: Internal Medicine; ADMIT Internal Medicine
DX: G93.41 Metabolic encephalopathy (principal); E44.0 Moderate protein-calorie malnutrition; F02.81 Dementia in other diseases classified elsewhere, unspecified severity, with behavioral disturbance; T43.595A Adverse effect of other antipsychotics and neuroleptics, initial encounter; Y92.89 Other specified places as the place of occurrence of the external cause; G20 Parkinson's disease; F63.81 Intermittent explosive disorder; D64.9 Anemia, unspecified; E87.8 Other disorders of electrolyte and fluid balance, not elsewhere classified; E83.41 Hypermagnesemia; N40.0 Benign prostatic hyperplasia without lower urinary tract symptoms; R33.9 Retention of urine, unspecified; I10 Essential (primary) hypertension; Z87.01 Personal history of pneumonia (recurrent); Z68.22 Body mass index [BMI] 22.0-22.9, adult; Z79.899 Other long term (current) drug therapy; Z88.8 Allergy status to other drugs, medicaments and biological substances

== ENCOUNTER 2019-09-23 08:56 | Inpatient (IN) | payer MEDICARE ==
[~2019-09-23] VITALS: Ht 187.9 cm; Wt 78.0 kg
--- NOTE | 2019-09-23 01:00 | NUR ---
PATIENT AGITATED AND BECOMING COMBATIVE AND ATTEMPTING TO KICK AND BITE STAFF. UNABLE TO FULLY ASSESS AND MEASURE WOUNDS AT THIS TIME.
[~2019-09-23 08:56] MED LIST changes: +COGENTIN0.5 MG PO; +SEROQUEL25 MG PO; +SEROQUEL50 MG PO
--- NOTE | 2019-09-23 11:50 | NUR ---
SPOKE TO KYRA BELTRAN CNP REGARDING ADMISSION TO UNIT. KYRA STATES TO PLACE MEDICAL CONSULT UNDER , STATES NO NEED TO CALL TO MAKE AWARE OF MEDICAL CONSULT. PATIENCE VALENCIA GAVE ORDERS FOR THIS RN TO CONTINUE PT'S MEDICAL MEDICATIONS (NORVASC, SINEMET, AND FLOMAX).
--- NOTE | 2019-09-23 12:50 | NUR ---
THOMPSON MARSHALL a 73 year old M [facility] admission. Arrived on unit at 1250. ALLERGIES: NKDA. Vital signs are: 97.3-72-18 132/72. 100% ROOM AIR The [facility] ANALY MARSHALL GAVE VERBAL CONSENTS VIA TELEPHONE FOR THE FOLLOWING WITNESSED BY 2ND RN [email or web address].AJC: Authorization For The Release of Medical Information, Clothing List, Consent to Voluntary Admission and Hospitalization, Consent and Release Forms/Receipt of Rights, Acknowledgement of Advance Directive Information, Behavioral Health Consent Form, and Informed Consent of Medications. Admitted under the services of Dr. CEFERINO MELGAR,[facility]. A search was conducted and hazardous articles were removed. Client was oriented to the unit. NAOMI CUEVAS
[2019-09-23 12:57] VITALS: BP 132/72
--- NOTE | 2019-09-23 13:40 | NUR ---
NOTIFIED OF NEED FOR WOUND CARE ORDERS NURSING MEMORIAL MARKER DESIGNER Rhea NOTIFIED OF NEED FOR WOUND STAGING TO RIGHT AND LEFT BUTTOCKS.
--- NOTE | 2019-09-23 14:10 | NUR ---
OPHELIA MULLIGAN AWARE OF READMISSION TO U.
--- NOTE | 2019-09-23 16:05 | NUR ---
Shift chart check completed.
--- NOTE | 2019-09-23 17:20 | NUR ---
Pt up to chair at this time, alert, moving spontaneously. Took 1800 medications without difficulty. Speech continues to be soft and mumbled. Waiting for dinner tray to be delivered to unit at this time.
[2019-09-23 20:00] VITALS: BP 131/71
--- NOTE | 2019-09-23 22:29 | NUR ---
Patient alert to person only with confusion noted. Mood is calm at this time. Memory deficit noted. Patient's speech is soft and mumbled. Patient yelling for Janeth several times but then quieted down by himself. Patient compliant with HS medications without any difficulty crushed and mixed in applesauce. Emotional support offered. Attempted to redirect/reorient but patient unreceptive. Plan to continue to encourage medication compliance. Also continue to offer emotional support and continue to redirect/reorient when needed/appropriate. Will continue to monitor moods/behaviors. Q 15 minute safety checks continued and maintained. See [facility] flowsheet for further documentation.
--- NOTE | 2019-09-24 00:25 | NUR ---
24 HR chart check completed.
--- NOTE | 2019-09-24 05:14 | NUR ---
Patient slept approx. 3 hours throughout shift. Q 15 minute safety checks continued and maintained.
--- NOTE | 2019-09-24 05:54 | NUR ---
THOMPSON MARSHALL [id number] Please refer to the physician's history and physical for past medical history, comorbid conditions, and allergies. Diagnosis: INTERMITTENT EXPLOSIVE DISORDER Giancarlo Score: 14,MODERATE RISK WOUND DESCRIPTIONS: Wound Number: 1 Location of the wound: left wrist Type of wound: skin tear Thickness: Partial Size: 0.4cm x 0.3cm x 0.1cm Tunneling: none Undermining: none Sinus Tract: none Presence of Exudate: Serosanguineous Amount: Light Color: Red Odor: None Periwound Skin Appearance: Normal Wound edges: approximated Pain (associated with wound): none at time of assessment How does patient state this happened? pt unable to state how this happened Wound Number: 2 Location of the wound: right hand Type of wound: scab Thickness: Partial Size: 1.6cm x 0.5cm x <0.1cm Tunneling: none Undermining: none Sinus Tract: none Presence of Exudate: none Amount: none Color: Red, brown Odor: None Periwound Skin Appearance: Normal Wound edges: approximated Pain (associated with wound): none at time of assessment How does patient state this happened? pt unable to state how this happened Wound Number: 3 Location of the wound: left buttocks Type of wound: stage 2 Thickness: Partial Size: 3.5cm x 2.5cm x 0.1cm Tunneling: none Undermining: none Sinus Tract: none Presence of Exudate: Serosanguineous Amount: Light Color: Red Odor: None Periwound Skin Appearance: Normal Wound edges: approximated Pain (associated with wound): none at time of assessment How does patient state this happened? pt unable to state how this happened Wound Number: 4 Location of the wound: right buttocks Type of wound: stage 1 Size: 6.5cm x 0.8cm x <0.1cm Tunneling: none Undermining: none Sinus Tract: none Presence of Exudate: none Amount: none Color: Red Odor: None Periwound Skin Appearance: Normal Wound edges: approximated Pain (associated with wound): none at time of assessment How does patient state this happened? pt unable to state how this happened Surface the patient is resting on: [facility] bed is: Proform SKIN PREVENTION RECOMMENDATION: 1. Pressure redistribution support surface as appropriate 2. Elevate heels 3. Remove boots/TEDS every shift and reapply 4. Head of bed 30 degrees as tolerated 5. Assess nutrition and hydration 6. Manage moisture 7. Avoid the use of containment devices while in bed 8. Use absorptive products on surfaces limit layers of linens on bed 9. Turn and reposition every 1-2 hours in bed and every 1 hour in chair as tolerated 10. Weight shifts every 15 minutes while up in chair 11. Offloading with pillows or device to keep heels elevated off bed 12. Monitor skin at least every shift 13. Inspect under medical devices twice a day WOUND TREATMENT RECOMMENDATIONS: Continue Wheelchair cushion when oob Continue heel raiser pro boots to bilateral feet. Clarify skin tear guidelines to left wrist: Cleanse left wrist with nss and apply sureprep around the wound hydrogel to wound bed and cover with optifoam gentle every 2 days and prn for soiling Clarify stage 2 guidelines: Cleanse left and right buttocks with nss and apply sureprep around the wound hydrogel to wound bed and cover with optifoam gentle every 2 days and prn for soiling
--- NOTE | 2019-09-24 07:45 | NUR ---
Spoke with Brendan VALENCIA re: pt with no documented BM for several days. New orders recieved. Also made aware ICU nurse reported had stated that pt used thicket for beverages at home. Diet order updated per NURSE SANE.
--- NOTE | 2019-09-24 07:54 | NUR ---
Patient eating breakfast in dining room with peers. Respirations easy and regular. Vital signs stable. No overt distress. [facility] to [facility] pt at this time, update given.
[2019-09-24 07:57] VITALS: BP 137/69
--- NOTE | 2019-09-24 08:05 | NUR ---
Dara LAW notified of wound care recommendations.
--- NOTE | 2019-09-24 08:18 | NUR ---
PHYSICAL THERAPY Screen and PT eval received will follow thank you. Briana Weston PT
--- NOTE | 2019-09-24 08:29 | NUR ---
Occupational Therapy orders and nursing screen received. Will follow up with patient for completion of an OT evaluation. Thank you for this referral. Lachelle Barnett OTR/L
--- NOTE | 2019-09-24 09:00 | NUR ---
Treatment Plan meeting was held this a.m. with Dr. Clay via telephone, LUAN Stokes RN, AGRICULTURAL PRODUCE SORTER-S and Live Ammunition Inspector. Plan for discharge next week. Pt. will require SNF due to decline Therapy Recommendation. has requested referrals to [facility].
--- NOTE | 2019-09-24 09:21 | NUR ---
PHYSICAL THERAPY Physical Therapy evaluation completed on 3N with full evaluation to follow. Moderate complexity PT evaluation per chart review and evaluation, [id number]. Recommend physical therapy per plan of care and SNF upon discharge. Thank you for this referral. Karly Long,PT,DPT
--- NOTE | 2019-09-24 10:00 | NUR ---
Brendan RAILWAY TRACK PLANT OPERATOR on unit to see pt at this time, update given.
--- NOTE | 2019-09-24 10:17 | NUR ---
Occupational Therapy evaluation completed on 3N with full evaluation to follow. Recommend occupational therapy per plan of care and return to [facility] upon discharge. Thank you for this referral. Lachelle Barnett OTR/L
--- NOTE | 2019-09-24 10:38 | NUR ---
Multiple attempts made to reposition pt in chair to relieve pressure from buttocks/coccyx. Pt removes offloading pillows numerous times. Seat cushion in place.
--- NOTE | 2019-09-24 11:06 | NUR ---
Referrals Faxed to [facility] and [facility].
--- NOTE | 2019-09-24 11:06 | NUR ---
PASRR completed online in [facility]. Faxed supporting Documentation to [facility] for further review for SNF placement.
--- NOTE | 2019-09-24 12:40 | NUR ---
SPEECH THERAPY IN ASSESS PATIENT. RECOMMENDS PUREED DIET WITH HONEY THICK LIQUIDS.
--- NOTE | 2019-09-24 13:39 | NUR ---
Please refer to psychosocial assessment from pt's previous admission date of 09/15/19.
--- NOTE | 2019-09-24 13:40 | NUR ---
Spoke with pt's Radha Morel about pt's discharge plan. Discussed pt's current status and [facility]. It was agreed that referrals would be made to [facility], and [facility]. Educated Radha Morel about Medicare and SNF coverage. Offered to Radha Morel that it might benefit her to speak to an ip technology transactions attorney to review her finances for LTC of pt. Radha Morel stated that she does not want Medicaid for her and that she is able to private pay for his LTC.
--- NOTE | 2019-09-24 13:45 | NUR ---
Pt acknowledged this television writer this AM and said "good morning." Pt was sitting in the acosta near the nurse's station in a irina-chair.
--- NOTE | 2019-09-24 14:10 | NUR ---
SPEECH PATHOLOGY Clinical swallowing evaluation completed as per order due to pocketing meds and foods. Medical history includes metabolic encephalopathy, intermittent explosive disorder, Parkinson disease, HTN, malnutrition, dementia and history of aspiration pneumonia. Patient currently receives a pureed diet and thick liquids. Assessment was conducted during lunchtime meal. Patient was alert but confused. He was not able to follow commands for full assessment of oral abilities but was noted to display reduced oral ROM and increased saliva likely due to difficulty managing his secretions. He displayed delayed oral transit of puree and thin liquids, held material in his mouth and needed cues to swallow as well as slow rate of feeding. Residue was displayed post swallow which eventually cleared with liquid wash. No coughing or choking was displayed. Recommend patient receive pureed diet and honey thick liquid. Recommend safe swallow precautions to be implemented when feeding such as upright positioning, slow feeding, alternating liquid and solid and providing cues to swallow/allowing extra time to ensure he swallows before next bite. Follow up therapy is recommended through length of stay for education and adherence to safe swallow precautions. Results and jason. were shared with patient's nurse who verbalized understanding. Refer to report in Register My Info for further information. Thank you for this referral. JANAK GUERRERO MSCCC-DIETARY SUPERVISOR
--- NOTE | 2019-09-24 15:21 | NUR ---
P- Confusion, visual hallucinations I- Orientation, mood and behaviors assessed. Assessed pt for SI/HI, hallucinations, paranoia and/or delusions. Medications administered as per physician's orders. Assistance with ADL care provided. Encouraged pt to attend and participate in [place] milieu groups and activities. R- Pt is alert and oriented to name only, appears otherwise confused with memory deficits noted. Resps easy and even on room air. Mood appears stable this shift with flat affect. Speech remains soft and mumbled although slightly easier to understand than assessment by this RN on 09/23/19. As this RN walked past pt this AM with coffee, pt states "oh! a drink!" Pt notably more alert and conversant with staff this date. Improved PO intakes noted this shift, pt ate 100% of both breakfast and lunch, pureed diet with honey thick liquids. Pt denies SI/HI, intent or plan. Pt observed with response to internal visual stimuli, pt seen reaching and grabbing into the air for unseen objects. MHW questioned pt as to what he was reaching for, pt gave nonsensical answer. Pt denies pain/discomfort. Medication compliant without difficulty. Pt noncompliant with pressure reducing repositioning devices while up in chair, pt removing them himself multiple times. Pt laid down for afternoon rest period, pt incontinent of bowel, loose BM noted, incontinence care and wound care provided. Pt repositioned on his right side for pressure relief off buttocks/coccyx. q2h repositioning schedule in place. Pt compliant with HOC without aggressive behavior. No distress noted. P- Plan to continue current treatment, continue to monitor mood and behaviors, provide appropriate reorientation, redirection and 1:1 as needed. Continue to encourage medication compliance as well as group attendance and participation.
[2019-09-24 20:00] VITALS: BP 112/57
--- NOTE | 2019-09-24 23:24 | NUR ---
P-AGGRESSIVE, DISRUPTIVE, YELLING OUT I-REDIRECTION WITH 1:1 THEAPEUTIC INTERVENTIONS AND COMMUNICATION. PRESENT REALITY. EDUCATE AND ENCOURAGE MEDICATION COMPLIANCE R-MEDICATION COMPLIANT AT HS. PATIENT PROVIDED NOURISHMENT AND FLUIDS AT HS. PATIENT DISRUPTIVE IN QUIET AREA. PATIENT BANGING ON AND THROWING OBJECTS IN ROOM. PATIENT ATTEMPTING TO KICK AND BITE NURSING STAFF. PATIENT GRABBING NURSING STAFF ARMS AND HANDS AND NURSING STAFF WITH DIFFICULTY GETTING FROM PATIENT'S HYDROPONICS WORKER. SECURITY X 2 ALSO ON UNIT TO HELP ASSIST DURING PATIENT COMBATIVE EPISODES. PATIENT YELLING OUT INTERMITTENTLY. PATIENT WITH SMITH CATHETER INTACT AND PATENT. PATIENT WITH NO HALLUCINATIONS OR DELUSIONS. PATIENT WITH NO HOMICIDAL IDEATIONS AND DENIES SUICIDAL IDEATIONS AT THIS TIME. P-CONTINUE TO ENCOURAGE MEDICATION COMPLIANCE, ENCOURAGE GROUP THERAPY WHILE AWAKE
--- NOTE | 2019-09-25 04:17 | NUR ---
Upon discharge recommend patient to follow up for wound care in outpatient setting continue current wound care orders at discharging facility.
--- NOTE | 2019-09-25 05:41 | NUR ---
PATIENT SLEPT 7 HOURS OF UNIMTERRUPTED SLEEP THROUGHOUT SHIFT. Q 15 MINUTE CHECKS MAINTAINED. 24 HR chart check completed.
--- NOTE | 2019-09-25 07:05 | NUR ---
PHYSICAL THERAPY Patient seen this am for therapy visit and was semi reclined in Quiet room Olya chair upon therapist arrival. Patient identified by name / and presented again with bouts of mild "drooling". OT asssitant was present for observation only this session as patient tolerated seated B hamstring stretch, secondary to increased tightness. Patient needed multiple v/c's to complete several seated B LE therex, x 10 reps each, AAROM as patient easily becomes very "guarded" upon tactile cueing. Patient performed several sit to stand transfers at rail in [facility], MOD A x 2, tolerating approx 1 minute static stand. Patient speech still remains "mumbling" at best as patient only able to take 3-4 forward steps secondary to increased difficulty picking his feet up. Patient returned to [facility] chair in activity room with Lap tray awaiting breakfast, under [facility] staff Supervision. Will continue per POC as tolerated, total treatment time 23 minutes. Jerrod Kaiser, FIRE COORDINATOR
--- NOTE | 2019-09-25 07:25 | NUR ---
OT NOTE Prior to coming to the floor spoke with nurse Radha and reported that therapy was coming to the floor to treat this pt. Pt was seen this A.M. 1:1 for 25 minute OT session with WHEEL WORKER and nursing staff present for observation only. Upon arrival pt was sitting semi reclined in the irina chair in the quiet room. Pt identified by name and on wristband due to being non verbal throughout session. Completed PROM to B shoulder, elbow, and wrist joints over all planes of motion for 1 X 10 to increase and restore maximum functional use. Throughout pt was very resistive to movement requiring max verbal and tactile prompts for relaxation, encouragement, and command follow. Pt was then taken out to the hallway where he completed multiple sit to stand transfers from chair level with modA X 2 and use of hand rail for UE support. Challenged pt's static standing tolerance needed for increased I in self care tasks and functional transfers. Pt was able to tolerate aprox 60 seconds at a time before sitting due to fatigue. Pt was left sitting semi reclined in the irina chair in the dining acosta with lap tray in place and under [facility] staff supervision. Continue with rec D/C plan return to [facility]. ALYSSA Larsen/Nahum
[2019-09-25 07:53] VITALS: BP 128/83
--- NOTE | 2019-09-25 08:30 | NUR ---
Treatment Plan meeting was held via telephone with Dr. Clay, LUAN Stokes, ABIMBOLA and Veterinary Anatomist. Plan for discharge at the end of the week if placement for SNF secured. PASRR Completed and submitted 09/24/2019 and is pending. Referrals faxed to [facility] who continues to review referral and [facility]. Clinical Updates faxed to both facilities today.
--- NOTE | 2019-09-25 10:34 | NUR ---
PASRR Level two Outcome returns. Pt. has been ruled out from Further review due to Dementia, Alzheimer's or other Major Neurocognitive Disorder. Pt. may enter Nursing Facility. Copy Placed in Patient Chart.
--- NOTE | 2019-09-25 11:47 | NUR ---
P- Confusion, napping intermittently, spit meds out this AM I- Orientation, mood and behaviors assessed. Assessed pt for SI/HI, hallucinations, paranoia and/or delusions. Medications administered as per physician's orders. Complete ADL care provided by staff. Reorientation and redirection provided as needed. Encouraged pt to attend and participate in groups and activities. R- Pt is alert and oriented to name only, otherwise confused. Resps easy and even on room air. Mood appears depressed with flat affect. Speech remains soft and mumbled. Pt napping intermittently, easily arousable via verbal/tactile stimuli. Pt spit out AM medications. Pt denies SI/HI, intent or plan. Pt denies hallucinations, no response to internal stimuli noted. No paranoia or delusions noted. No aggressive behaviors as of this time in the shift. Pineda cath intact and patent. Seat cushion, heel protectors and elbow protectors in use, repositioning schedule maintained for pressure relief. No distress noted. P- Plan to continue current treatment, continue to monitor mood and behaviors, provide appropriate reorientation and redirection as needed. Continue to encourage medication compliance as well as group attendance and participation.
--- NOTE | 2019-09-25 12:31 | NUR ---
SPEECH PATHOLOGY Patient was seen this pm for treatment during lunchtime meal. Patient was groggy and kept his eyes closed. He was seated upright in [facility] and fed by clinician. Patient remains on pureed diet and honey thick liquids. He was attempted with a variety of pureed items. He displayed limited mouth opening to accept bites as well as slow propulsion. He needed cues to swallow as he held material in his mouth. Strategies provided to ensure safety included moistening dry pureed items so they were easier to swallow, cues to swallow as needed and alternating consistencies. He was becoming groggier as meal progressed therefore feeding was terminated. His overall intake was poor during the meal. Staff reported that he was more awake with better intake yesterday. Staff was also educated on strategies used today and verbalized understanding. JANAK GUERRERO MSCCC-CT SCAN TECHNOLOGIST
--- NOTE | 2019-09-25 12:50 | NUR ---
Pt sleeping after lunch, laid down in bed, pt clean and dry, alva cath intact and patent. Repositioned to right side, repositioning wedge in place, heel protectors and elbow protectors in place. Q2h repositioning schedule maintained.
--- NOTE | 2019-09-25 14:47 | NUR ---
Additional Clinicals faxed to [facility].
--- NOTE | 2019-09-25 14:57 | NUR ---
Pt repositioned to left side. Pt clean and dry. Pineda cath intact and patent. Pt awake and alert, engaged in short conversation with this RN. Warm blanket provided for pt comfort, pt states "Oh. That blanket feels nice! It feels just like a hospital blanket". Reorientation provided. Pt accepted. Pt resting quiety at this time. q15 min monitoring continues.
--- NOTE | 2019-09-25 16:15 | NUR ---
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 Pleasant and cooperative at this time.
--- NOTE | 2019-09-25 17:00 | NUR ---
Pt fed self 100% of dinner, pt becoming more confused, pt asking staff several times to help him "get out of here". Reorientation provided, pt states "I know I'm in the hospital but I've got to get out of here. I have to get cleaned up, dressed and down to [place] in the next 40 minutes. I have a meeeting with an securities attorney". Attempts to reorient/present reality at this time ineffective.
[2019-09-25 19:51] VITALS: BP 126/89
--- NOTE | 2019-09-25 21:52 | NUR ---
P-DISRUPTIVE, IRRITABLE I-REDIRECTION WITH 1:1 THEAPEUTIC INTERVENTIONS AND COMMUNICATION. PRESENT REALITY. EDUCATE AND ENCOURAGE MEDICATION COMPLIANCE R-MEDICATION COMPLIANT AT HS. PATIENT PROVIDED NOURISHMENT AND FLUIDS AT HS. PATIENT DISRUPTIVE IN QUIET AREA. PATIENT BANGING ON OBJECTS IN THE QUIET ROOM. PATIENT WITH SLURRED SPEECH AT TIMES. PATIENT ABLE TO COMMUNICATE WITH DEVONTE ON CORDLESS PHONE AT HS. PATIENT ASSISTED TO BED WITH ASSIST X 3. BED IN LOW POSITION. PATIENT TURNED AND REPOSITIONED PER TURNING SCHEDULE. PATIENT MAINTAINS SEAT CUSHION WHILE IN CHAIR AND CONTINUES WITH BILATERAL HEEL PROTECTORS AND ELBOW PROTECTORS PER ORDER. PATIENT TOLERATING HONEY THICKENED LIQUIDS WITHOUT DIFFICULTY. PATIENT WITH SMITH CATHETER INTACT AND PATENT. PATIENT WITH NO HALLUCINATIONS OR DELUSIONS. PATIENT WITH NO HOMICIDAL IDEATIONS AND DENIES SUICIDAL IDEATIONS AT THIS TIME. P-CONTINUE TO ENCOURAGE MEDICATION COMPLIANCE, ENCOURAGE GROUP THERAPY WHILE AWAKE
--- NOTE | 2019-09-26 05:58 | NUR ---
PATIENT SLEPT 6 HOURS OF UNINTERRUPTED SLEEP THROUGHOUT SHIFT. Q 15 MINUTE CHECKS MAINTAINED. 24 HR chart check completed.
--- NOTE | 2019-09-26 07:05 | NUR ---
PHYSICAL THERAPY Patient seen this am for therapy visit and was sitting semi reclined in activity room Olya chair upon therapist arrival. Patient was alert and pleasant this morning, identified by name / as OT was also present for observation this session. Patient transfers sit to stand at handrail MIN A, tolerating approx 2 minutes static stand with v/c to improve upright posture secondary to increased B knee flexion. Patient also ambulated with use of wh walker, 40'x 1, Min A, demonstrating bouts of "festinating" gait pattern. Patient needed several v/c's to increase stride and improve start / stop mechanism associated with bouts of "freezing". Patient returned to his Olya chair and remained in activity room with lap tray and B heel protectors. Patient was very pleased with his performance this session and remained while under [facility] staff Supervision awaiting breakfast. Will continue per POC asa tolerated, total treatment time 17 minutes. Jerrod Kaiser, MUNICIPAL COURT MAGISTRATE
--- NOTE | 2019-09-26 07:24 | NUR ---
OT NOTE Prior to coming to the floor spoke with nurse Lawson and reported that therapy was coming to the floor to treat this pt. Pt was seen this A.M. 1:1 for 24 minute OT session. Upon arrival pt was sitting upright in the irina chair in the quiet room. Pt identified by name and and had no complaints at this time. Throughout session pt was verbal and very friendly with therapist. Pt completed AROM to B shoulder, elbow, wrist, and digits over all planes of motion reaching full range for 1 X 15. Pt was then taken to the hallway where he completed multiple sit to stand transfers from chair level with Manny X 2 and use of hand rail for UE support. Challenged pt's static standing tolerance needed for increased I in self care tasks and functional transfers, pt was able to tolerate aprox 2 minutes at a time before sitting due to fatigue. Pt then completed functional mobility to his bedroom with Manny and use of w/w. Pt was left sitting semi reclined in the irina chair in the dining acosta with lap tray in place, body alarm activated for safety, and under [facility] staff supervision. Continue with rec D/C plan to return to [facility]. ALYSSA Larsen/Nahum
--- NOTE | 2019-09-26 07:27 | NUR ---
Message received from Lelia moeller [place]. Referral Declined due to Behaviors.
[2019-09-26 07:33] VITALS: BP 126/60
--- NOTE | 2019-09-26 07:58 | NUR ---
SPEECH PATHOLOGY Patient was seen for treatment this am, which was conducted during a portion of his breakfast meal. Patient was sitting upright, awake, alert and able to feed himself today. Patient consumed 100% of meal which included a variety of pureed items as well as honey thick liquid. Patient tolerated items well. He was not noted to hold items in his mouth or display residue post swallow as had been noticed on prior sessions. Recommend patient remain on pureed diet and honey thick liquid with use of safe swallow precautions. Continue therapy plan. JANAK GUERRERO MSCCC-STORAGE CONSULTANT
--- NOTE | 2019-09-26 09:00 | NUR ---
Treatment Plan meeting was held via telephone with Dr. Clay, LUAN Stokes, RN, SAS ANALYST-S and Shirt Turner in attendance. Plan for discharge Next week. Referrals Pending at [facility].
--- NOTE | 2019-09-26 11:00 | NUR ---
Referral Faxed to [facility].
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
--- NOTE | 2019-09-26 11:15 | NUR ---
SMITH CATHER REPLACE DUE TO SMITH CATHER LEAKING URINE OUT OF BAG. ASSIST X3 WITH REINSERTION OF 18RF 10CC BALLOON SMITH CATHER, INTACT. BLOODY URINE NOTED. KYRA BELTRAN CNP NOTIFIED. CONTINUE TO MONITOR.
--- NOTE | 2019-09-26 11:47 | NUR ---
Clinical Updates faxed to [facility] Attn:
--- NOTE | 2019-09-26 12:00 | NUR ---
PRN IM ATIVAN EFFECTIVE. PT RESTING WITH EYES CLOSED IN [place]. NO VOICED COMPLAINTS AT THIS TIME. NO S/S OF DISTRESS NOTED. RESPS EVEN AND UNLABORED ON ROOM AIR. Q15 MINUTE CHECKS MAINTAINED FOR SAFETY. FALLING STAR PROGRAM IN PLACE AND ALARMS INTACT.
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
[2019-09-26 20:00] VITALS: BP 113/80
--- NOTE | 2019-09-26 20:16 | NUR ---
, JACOBY VITAL CALLED TO TALK TO THIS NURSE AND WAS UPDATED ABOUT PATIENT. TO CALL BACK TOMORROW AND WANTING TO SPEAK TO THE DOCTOR
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
--- NOTE | 2019-09-27 06:55 | NUR ---
PATIENT SLEPT 1 HOUR OF INTERRUPTED SLEEP THROUGHOUT SHIFT. Q 15 MINUTE CHECKS MAINTAINED. 24 HR chart check completed.
--- NOTE | 2019-09-27 07:05 | NUR ---
PHYSICAL THERAPY Patient seen this am for therapy visit and was semi reclined in Quiet room María chair upon therapist arrival. Patient identified by name / and was joined by OT surgical supply assistant who was present this session for observation only. Patient presented with both increased confusion and slurred speech, making it very difficult to understand patient. Patient was pleasant though, requiring multiple v/c's to focus on task in completing all treatment this morning. Patient transfers sit to stand MIN A x 2, tolerating approx 1 minute static stand each trial and ambulated with use of wh walker, 20'x 1, MIN A. Patient demonstrated bouts of "freezing" gait pattern, decreased stride and POOR upright posture. Patient returned to his Olya chair and remained in Quiet room under [facility] staff Supervision with body alarm / Lap tray for safety. Will continue per POC as tolerated, total treatment time 16 minutes. Jerrod Kaiser, BOX TOE CEMENTER
--- NOTE | 2019-09-27 07:24 | NUR ---
OT NOTE Prior to coming to the floor spoke with nurse Lawson and reported that therapy was coming to the floor to treat this pt. Pt was seen this A.M. 1:1 for 24 minute OT session with DICTIONARY EDITOR and nursing staff present for observation only. Upon arrival pt was sitting upright in the irina chair in the quiet room. Pt identified by name and . While seated pt completed AROM to BUE over all planes of motion for 1 X 10 to increase and restore maximum functional use. Pt was then taken to the hallway where he completed multiple sit to stand transfers from chair level with Manny X 2 and use of hand rail for UE support. Challenged pt's static standing tolerance needed for increased I in self care tasks and functional transfers, pt was able to tolerate aprox 2 minutes at a time before sitting due to fatigue. Pt was left sitting upright in the irina chair in the quiet room with lap tray in place, body alarm activated for safety, and under [facility] staff supervision. Continue with rec D/C plan to return to [facility]. ALYSSA Larsen/Nahum
[2019-09-27 07:44] VITALS: BP 131/66
--- NOTE | 2019-09-27 08:00 | NUR ---
SPEECH PATHOLOGY Patient was seen for treatment this am, conducted during breakfast meal. Patient was sitting in irina chair in quiet room. He was awake but significantly confused. He was holding a spoon but not able to feed himself due to confusion. He was fed by clinician and needed frequent cues during the meal to open his mouth at appropriate time and suck from a straw. He was able to swallow all items in a timely manner and displayed no residue post swallow. No coughing or wet vocal quality were displayed. Recommend patient remain on pureed diet and honey thick liquid with use of safe swallow precautions such as upright positioning, assistance with feeding as needed, cues as needed to swallow or take bites, alternating liquid and solid and small bites/sips. Patient's nurse was informed of results and recommendations. Continue plan short term. JANAK GUERRERO MSCCC-CHUCK SPLITTER
--- NOTE | 2019-09-27 09:00 | NUR ---
Treatment Plan meeting was held via telephone with Dr. Clay RN and Hand Potter. Plan for discharge Next Week. Continue to work on Placement for patient. [facility] remains pending. Back up is [facility] in [place]. Will follow nichol Cedeno at [facility] today.
--- NOTE | 2019-09-27 09:11 | NUR ---
ST EVAL THIS AM FOR BREAKFAST, ST STATES TO CONTINUE WITH PUREED DIET AND HONEY THICK LIQUIDS. STATES PATIENT DID WELL WITH BEING FED, REQUIRED VERBAL CUEING.
--- NOTE | 2019-09-27 10:16 | NUR ---
Dressing change to left wrist per physician order along with Gilda DAILY. Patient tolerate dressing changes without diffcuilty in [facility].
--- NOTE | 2019-09-27 10:35 | NUR ---
DR HALE ON UNIT TO ASSESS PT, UPDATE PROVIDED.
[2019-09-27 20:00] VITALS: BP 132/72
--- NOTE | 2019-09-27 20:37 | NUR ---
P--AGGRESSIVE, CONFUSED, IRRITABLE I--CRUSHED MEDICATIONS AND GAVE WITH FLUIDS. REFUSED SNACK AND ADDITIONAL FLUIDS. NOTED CONTINUED DROOLING. TRIED TO HAVE CONVERSATION WITH CLIENT BUT UNSUCCESSFUL. MOVES SELF AROUND IN CHAIR. CHAIR SEAT IN PLACE. SMITH ON FLOOR WITH MOE/YELLOW URINE. REORIENTED TO PLACE DATE AND TIME. R- GARBLED AND RAMBLING SPEECH. NONSENSICLE ANSWERS WHEN ASKED. PUSHED DRINK GLASS AWAY AFTER TWO DRINKS AND PUSHED SPOON AWAY AFTER MEDICATIONS PROVIDED. P--MONITOR FOR CHANGES IN BEHAVIOR/MOOD. MONITOR Q15 MINUTES AND PRN FOR SAFETY.
--- NOTE | 2019-09-28 00:08 | NUR ---
SLEPT SHORT TIME. CURRENTLY AWAKE SITTING IN MOSHE CHAIR. APPEARS TO FIXING SOMETHING. NO YELLING NOTED
--- NOTE | 2019-09-28 02:30 | NUR ---
24 HR chart check completed.
--- NOTE | 2019-09-28 03:44 | NUR ---
Dressing change to right buttocks and left buttocks per physician order. Dressings intact to left wrist at time of assessment dressing dated for 09/27/19 as dressing not needed change at this time per physician orders. Patient tolerate dressing changes without diffcuilty.
--- NOTE | 2019-09-28 03:52 | NUR ---
WOUND CARE HERE. PLACED CLIENT IN BED WITH ASSIST OF 3. DRESSING TO BUTTOCKS CHANGED AND REPORT IS THAT IT LOOKS MUCH BETTER. COMPLETEBED BATH DONE. CLOTHES CHANGED. SMITH SECURED TO LEG WITH SMITH GAITAN. HEEL PROTECTORS APPLIED. COVERED AND POSITION OF COMFORT.
--- NOTE | 2019-09-28 03:54 | NUR ---
WITHIN A COUPLE MINUTES CLIENT HAD BOOTS AND BLANKETS OFF AND THROWN ON FLOOR. TRYING TO GET UP. WILL MONITOR FOR SAFETY
--- NOTE | 2019-09-28 06:17 | NUR ---
CURRENTLY SLEEPING IN BED. HAS SLEPT APPROX 3-4 HOURS BROKEN
--- NOTE | 2019-09-28 07:15 | NUR ---
OT NOTE Prior to coming to the floor spoke with nurse Bennett and reported that therapy was coming to the floor to treat this pt. Pt was seen this A.M. 1:1 for 15 minute OT session with LITHOGRAPHIC STRIPPER and nursing staff present for observation only. Upon arrival pt was supine in bed. Pt identified by name and on wristband. Pt transferred supine to sit EOB with maxA X 2 and max verbal/tactile prompts for following commands. Sit to stand completed from bed level with maxA X 2 followed by standing pivot from the EOB to the irina chair with maxA X 2. No other tasks were able to be completed at this time due to pt not opening his eyes and being unable to follow commands. Pt was left sitting semi reclined in the irina chair in the dining acosta with lap tray in place, body alarm activated for safety, and under [facility] staff supervision. Continue with rec D/C plan to return to [facility]. ALYSSA Larsen/Nahum
[2019-09-28 07:26] VITALS: BP 117/73
--- NOTE | 2019-09-28 07:30 | NUR ---
PHYSICAL THERAPY Patient seen this am for therapy visit and was resting supine in bed upon therapist arrival. Patient identified by name / and was very Lethargic this morning, having difficulty responding to both verbal / tactile cueing. OT personal care assistant was also present for observation this session as patient transfers supine to sit EOB with MAX A x 2. Patient tolerated static EOB sit, demonstrating bouts of retrograde posture, MIN A and having a hard time keeping his eyes open. Patient performed sit to stand transfer, MILLWRIGHT SUPERVISOR/MAX x 2, completing SPT to Olya chair, v/c for safe step sequence. Patient unable to follow simple commands and not appropriate for therex or gait training this session. Patient remained in Olya chair with lap tray and body alarm within activity room under U staff Supervision. Will continue per POC as tolerated, total treatment time 12 minutes. Jerrod Kaiser, DONOR PROCESSOR
--- NOTE | 2019-09-28 08:00 | NUR ---
SPEECH PATHOLOGY Treatment attempted this am during breakfast meal. Patient was sleeping and unable to be aroused to safely attempt feeding. His aide reported that she had attempted to feed him earlier but the food ran out of his mouth so she stopped feeding him. Will attempt treatment again at another time. JANAK GUERRERO MSCCC-TILT WALL SUPERVISOR
--- NOTE | 2019-09-28 08:30 | NUR ---
Treatment Plan meeting was held with LUAN Stokes RN and Drupal Web Developer. Plan for discharge Next Week. Pending referrals to [facility] [place].
--- NOTE | 2019-09-28 09:11 | NUR ---
Spoke with Pao at [facility]. They are still interested in referral. Clinical Updates faxed to Facility. Back up is Pt. will discharge to [facility] which is a [facility] and has a dementia Unit. [facility] is hopeful that they can meet Pt. needs.
--- NOTE | 2019-09-28 10:22 | NUR ---
DR RODRIGUEZ ON UNIT TO ASSESS PT, UPDATE PROVIDED.
--- NOTE | 2019-09-28 10:51 | NUR ---
AM GROUP PT DID NOT PARTICIPATE IN PAINTING OR CRAFTING. PT AGITATED AND RESTLESS, REQUIRING 1:1 AND LOW STIMULATION, INTERVENTIONS SOMEWHAT EFFECTIVE.
--- NOTE | 2019-09-28 11:16 | NUR ---
Clinical Updates faxed to [place] and [facility].
--- NOTE | 2019-09-28 12:28 | NUR ---
SPEECH PATHOLOGY Patient was seen for treatment during lunchtime meal. He was awake and sitting in irina chair in quiet room. Tray set up was provided and patient began to self feed but due to confusion he eventually needed fed. Patient tolerated puree and honey thick liquids with use of safe swallow precautions. Clinician attempted a trial of nectar thick liquid but coughing resulted post swallow. Recommend he remain on puree and honey thick liquids. Continue therapy plan JANAK GUERRERO MSCCC-ASSET SPECIALIST
--- NOTE | 2019-09-28 13:34 | NUR ---
PHYSICAL THERAPY CO-SIGN I approve of the Physical Therapy notes written above. Briana Weston PT
[2019-09-28 20:00] VITALS: BP 112/70
--- NOTE | 2019-09-28 22:40 | NUR ---
REMAINS CONFUSED AND DISORIENTED. UNABLE TO REDIRECT. KNEEING TABLE AND HITTING TRAY CONTINUOUSLY. UNABLE TO LAY DOWN BECAUSE HIS AGGITATION INCREASES WITH ANY HOC. RAMBLING AND SLURRED WORDS NOTED. CONTINUING TO MONITOR CLOSEY
--- NOTE | 2019-09-29 00:16 | NUR ---
EYES CLOSED. RESP EASY NONLABORED. COVERED WITH WARM BLANKET. WILL CONTINUE TO MONITOR. 24 HR chart check completed.
--- NOTE | 2019-09-29 05:48 | NUR ---
HAS SLEPT LESS THAN 3 BROKEN HOURS.. RESTLESS AND MOVING SELF ALL OVER CHAIR.
--- NOTE | 2019-09-29 05:52 | NUR ---
HAS SLEPT LESS THAN 3 BROKEN HOURS.. RESTLESS AND MOVING SELF ALL OVER CHAIR.
[2019-09-29 08:00] VITALS: BP 127/61
--- NOTE | 2019-09-29 09:01 | NUR ---
DR DIAZ ON UNIT TO ASSESS PT, UPDATE PROVIDED.
--- NOTE | 2019-09-29 17:05 | NUR ---
PT ATE ABOUT 4 BITES OF DINNER. CONTINUES WITH DROOLING. WILL CONTINUE TO ENCOURAGE INTAKE.
--- NOTE | 2019-09-29 17:09 | NUR ---
PT TIRED AND SLEEPING THE MAJORITY OF THE DAY. EASILY AROUSABLE AND WILL ATTEMPT TO INTERACT WITH THIS NURSE WHEN SPOKEN TO. NO HALLUCINATIONS OR DELUSIONS NOTED. NO SI/HI. NO COMBATIVENESS NOTED AT THIS TIME DURING THE SHIFT. DECREASED APPETITIE. DRS AWARE. PT REFUSED MEDICATIONS TODAY. WHEN ATTEMPTING TO GIVE MEDICATIONS PT WOULD LET MEDICINE SLIDE OUT OF HIS MOUTH. WILL CONTINUE TO MONITOR.
[2019-09-29 20:00] VITALS: BP 127/81
--- NOTE | 2019-09-29 20:13 | NUR ---
POUNDING ON TABLES. DISTRUPTIVE WITH PEERS. UNABLE TO REDIRECT. REFUSING ALL PO MEDICATIONS. VISTARIL 75MG IM GIVEN. PO VISTARIL WASTED. WILL TRY OTHER MEDICATIONS IF HE RELAXES
--- NOTE | 2019-09-29 21:02 | NUR ---
PULLED SMITH TUBING APART. TOOK CLIENT AND WITH ASSIST OF 3 PUT HIM AND BED AND CHANGED CLOTHING AND FIXED SMITH TUBING. CLIENT THEN TOOK PO MEDICATIONS. WILL MONITOR CLOSELY IN BED.
--- NOTE | 2019-09-29 22:28 | NUR ---
SAT WITH CLIENT IN HIS ROOM TILL HE RELAXED. APPEARS TO BE RESTING WELL. MOIST COMFORT FILLER COUGH NOT CHANGED. RESP EASY NON LABORD.
--- NOTE | 2019-09-30 00:33 | NUR ---
24 HR chart check completed. REFUSES TO LEAVE HEEL PROTECTORS ON
--- NOTE | 2019-09-30 00:33 | NUR ---
24 HR chart check completed. REFUSES TO LEAVE HEEL PROTECTORS ON
--- NOTE | 2019-09-30 05:51 | NUR ---
HAS SLEPT WELL ALL NIGHT. MOVES SELF AROUND IN BED WITH MINIMAL ASSISTANCE
--- NOTE | 2019-09-30 05:54 | NUR ---
HAS SLEPT WELL ALL NIGHT. MOVES SELF AROUND IN BED WITH MINIMAL ASSISTANCE
[2019-09-30 07:39] VITALS: BP 136/60
--- NOTE | 2019-09-30 10:25 | NUR ---
DR. DIAZ ON UNIT TO ASSESS PATIENT.
--- NOTE | 2019-09-30 12:48 | NUR ---
STAFF ATTEMPTED TO FEED PATIENT. PATIENT SWALLOWED ONE BITE OF PUDDING AND HELD ALL OTHER BITES OF PUDDING IN HIS MOUTH. PT IS DRINKING ENSURE FROM LUNCH. WILL CONTINUE TO ENCOURAGE PT TO TAKEFOOD IN.
--- NOTE | 2019-09-30 15:14 | NUR ---
Shift chart check completed.
--- NOTE | 2019-09-30 16:14 | NUR ---
PT REACHING HAND UP IN THE AIR. RN ASKED PT WHAT HE WAS REACHING UP FOR. PT REPLIED "GOD". PT REDIRECTED AT THIS TIME.
--- NOTE | 2019-09-30 16:22 | NUR ---
P: DISRUPTIVE BEHAVIORS. PATIENT YELLS OUT AND DISRUPTS THE MILIEU IN THE DINNINGROOM AND MUST BE REMOVED TO A QUIET AREA. I: 1:1 PROVIDED FOR THERAPEUTIC COMMUNICATION. LOW STIMULI AREA TO REDUCE ANXIETY. ENCOURAGED MEDICATION MANAGEMENT. MONITORED BEHAVIORS WITH Q15 MINUTE SAFETY CHECKS. R: MEDICATION COMPLIANT. LOW STIMULI AND 1:1 FOR THERAPEUTIC COMMUNICATION SEMI EFFECTIVE. P: CONTINUE TO PROVIDE 1:1 AND A LOW STIMULI ENVIRONMENT. MONITOR BEHAVIORS WITH Q15 MINUTE SAFETY CHECKS. ENCOURAGE MEDICATION COMPLIANCE.
--- NOTE | 2019-09-30 22:11 | NUR ---
PT IRRITABLE, GRABBING FURNITURE AND BANGING ON IT, STRIPPING OFF CLOTHES, YELLING FOR PEOPLE. ATTEMPTED TO PROVIDE PT WITH GINGERALE, LOW STIMULATION, 1:1. ALL NONPHARMACOLOGICAL INTERVENTIONS INEFFECTIVE, PT IS REFUSING PO MEDICATIONS, VISTARIL 75 IM TO RIGHT DELTOID GIVEN AT THIS TIME. SECURITY X2 PRESENT. PT TOLERATED WELL.
--- NOTE | 2019-09-30 23:30 | NUR ---
VISTARIL IM EFFECTIVE AT THIS TIME. PT RESTING QUIETLY IN BED.
--- NOTE | 2019-10-01 06:05 | NUR ---
PT SLEPT 7 HOURS THIS SHIFT
--- NOTE | 2019-10-01 07:14 | NUR ---
THOMPSON MARSHALL [id number] Please refer to the physician's history and physical for past medical history, comorbid conditions, and allergies. Diagnosis: INTERMITTENT EXPLOSIVE DISORDER Giancarlo Score: 14,MODERATE RISK WOUND DESCRIPTIONS: This nurse along with with Kiarra Bose RN evaluated patient for skin impairments. Wound Number: 1 Left wrist no open areas at time of assessment. Area is pink and blanchable scar tissue noted. No drainage noted at time of assessment. Wound Number: 2 Location of the wound: right hand Type of wound: scab Thickness: Partial Size: 1.6cm x 0.5cm x <0.1cm Tunneling: none Undermining: none Sinus Tract: none Presence of Exudate: none Amount: none Color: Red, brown Odor: None Periwound Skin Appearance: Normal Wound edges: approximated Pain (associated with wound): none at time of assessment How does patient state this happened? pt unable to state how this happened Wound Number:3 Left buttocks pink and blanchable at time of assessment. No open areas noted at time of assessment. No drainage noted at time of assessment. Wound Number:4 Right buttocks pink and blanchable at time of assessment. No open areas noted at time of assessment. No drainage noted at time of assessment. Surface the patient is resting on: Proform SKIN PREVENTION RECOMMENDATION: 1. Pressure redistribution support surface as appropriate 2. Elevate heels 3. Remove boots/TEDS every shift and reapply 4. Head of bed 30 degrees as tolerated 5. Assess nutrition and hydration 6. Manage moisture 7. Avoid the use of containment devices while in bed 8. Use absorptive products on surfaces limit layers of linens on bed 9. Turn and reposition every 1-2 hours in bed and every 1 hour in chair as tolerated 10. Weight shifts every 15 minutes while up in chair 11. Offloading with pillows or device to keep heels elevated off bed 12. Monitor skin at least every shift 13. Inspect under medical devices twice a day WOUND TREATMENT RECOMMENDATIONS: Continue Wheelchair cushion when oob Continue heel raiser pro boots to bilateral feet. D/C skin tear guidelines to left wrist D/C stage 2 guidelines: left and right buttocks Cleanse left and right buttocks with soap and water and apply hydraguard every shift and prn for soiling.
[2019-10-01 07:30] VITALS: BP 137/59
--- NOTE | 2019-10-01 08:00 | NUR ---
PHYSICAL THERAPY Patient seen this am for therapy visit and was just awakening supine in bed upon therapist arrival. Patient identified by name / and presented with mild "drooling". OT bilingual teacher assistant was also present this mornng for observation only as patient transfers supine to sit EOB with MAX A x 2. Patient was able to follow therapist commands, however only limited verbal responses this session. Patient performed sit to stand transfer from low bed surface with MOD A x 2, and needed therapist assist to pull up his pants. Patient ambulates with use of wh walker, MIN A, demonstrating bouts of "freezing", festinating gaity pattern and POOR balance. Patient very unsteady with all 90 /180 turns and needed multiple v/c's for improved walker safety / navigation. Patient returned to Olya chair in semi reclined position, lap tray in activity room under [facility] staff Supervision awaiting breakfast. Will continue per POC as tolerated, total treatment time 16 minutes. Jerrod Kaiser, SUPERVISOR EXTRUSION
--- NOTE | 2019-10-01 08:24 | NUR ---
OT NOTE Prior to coming to the floor spoke with nurse Torres and reported that therapy was coming to the floor to treat this pt. Pt was seen this A.M. 1:1 for 24 minute OT session with PANTOGRAPH OPERATOR and nursing staff present for observation only. Upon arrival pt was supine in bed. Pt identified by name and on wristband due to pt being non verbal or able to understand. Pt transferred supine to sit EOB with maxA X 2. Sit to stand completed from bed level with modA X 2 and use of w/w for UE support. Challenged pt's static standing tolerance needed for increased I in self care tasks and functional transfers, pt was able to tolerate aprox 4 minutes before sitting due to fatigue. Pt completed AROM to B shoulder, elbow, wrist, and digits over all planes of motion for 1 X 10 to increase and restore maximum functional use. Pt was left sitting upright in the irina chair in the dining acosta with lap tray in place and under [facility] staff supervision. Continue with rec D/C plan to return to [facility]. ALYSSA Larsen/Nahum
--- NOTE | 2019-10-01 09:00 | NUR ---
Treatment Plan meeting was held this a.m. with Dr. Clay, LUAN Stokes, RN, AT, ADDICTION PSYCHIATRIST-S and Dehydrator Tender. Plan for discharge at the end of the week, beginning of next week. Referrals have been faxed to [facility] and [facility] at request. No acceptance at this time. Requested updates faxed today for further review.
--- NOTE | 2019-10-01 09:16 | NUR ---
SPEECH PATHOLOGY Patient was seen for treatment this am, conducted during breakfast meal. Patient was sitting upright in irina chair in activity room with peers. He was alert and cooperative but did not verbalize during the session. He gestured and used head nods. He presented in consistent open mouth position and drooling was noted. He made no attempt to take foods independently but was able to drink thick liquids by cup on his own. He was slow to propel food/liquid but with extra time or cues he was able to swallow. Posterior placement of foods was provided, which was helpful in allowing him to swallow faster. Recommend he remain on present puree and honey thick liquids with strategies such as upright positioning, small bites/sips, feeding slowly, using posterior placement, alternating thick liquid and puree. Patient's nurse was educated on recommended safe swallow precautions to allow him to more easily take medication. She verbalized understanding. Continue therapy plan. JANAK GUERRERO MSCCC-DATABASES SOFTWARE CONSULTANT
[2019-10-01 10:03] LABS: BASO % 0.3 % (0.0-1.0); EOS # 0.1 10*3/uL (0.0-0.4); EOS % 1.2 % (1.0-4.0); HEMATOCRIT 41.8 % (42.0-52.0); LYMPH % 17.5 % (27.0-41.0); MEAN CELL VOLUME 93.5 fl (80.0-94.0); MEAN CORPUSCULAR HGB 29.5 pg (27.0-31.0); MEAN CORPUSCULAR HGB CONC 31.6 g/dl (33.0-37.0); MEAN PLATELET VOLUME 11.3 fl (9.6-12.3); MONO # 0.6 10*3/uL (0.1-1.0); MONO % 9.2 % (3.0-9.0); NEUT # 4.3 10*3/uL (2.3-7.9); NEUT % 71.6 % (47.0-73.0); PLATELET COUNT AUTOMATED 238 10*3/uL (130-400); RED BLOOD COUNT 4.47 10*6/uL (4.50-5.90); RED CELL DISTRI WIDTH 13.5 % (0-14.5)
[2019-10-01 10:19] LABS: ALBUMIN 2.9 gm/dl (3.1-4.5); ALKALINE PHOSPHATASE 90 U/L (45-117); BUN 25 mg/dl (7-24); CHLORIDE 109 mmol/L (98-107); CREATININE 1.08 mg/dL (0.70-1.30); POTASSIUM 3.9 mmol/L (3.5-5.1); SGOT/AST 38 IU/L (3-35); SGPT/ALT 19 U/L (12-78); SODIUM 142 mmol/L (136-145); TOTAL PROTEIN 6.9 gm/dL (6.4-8.2)
--- NOTE | 2019-10-01 10:28 | NUR ---
Dara LAW notified of wound care orders needed.
--- NOTE | 2019-10-01 11:00 | NUR ---
KYRA BELTRAN CNP ON UNIT TO ASSESS PATIENT.
--- NOTE | 2019-10-01 11:36 | NUR ---
Clinical Updates faxed to [facility] and [facility].
--- NOTE | 2019-10-01 13:09 | NUR ---
Received Call from Suzy Rodriguez at [facility]. Referral Declined due to behaviors.
--- NOTE | 2019-10-01 13:11 | NUR ---
PATIENT IS ALERT TO PERSON AND HANDS ON CARE WITH CONFUSION. LONG/SHORT TERM MEMORY DEFICITS NOTED. PATIENT IS STABLE, COOPERATIVE WITH CARE. MEDICATION COMPLAINT. Q 15 MINUTE SAFETY CHECKS. NO RESPONSE TO INTERNAL STIMULI. NO VOICED STATEMENT OF HI/SI OR PAIN. 2 PERSON ASSIST WITH ACTIVITIES OF DAILY LIVING, INCONTINENT OF BOWEL, SMITH CATHER IN PLACE AND DRAINING. SET UP FOR MEALS, WITH MUCH ENCOURAGEMENT TO EAT/DRINK. PARTICIPATED IN THERAPY SESSION, INTERACTIVE WITH STAFF. IN DINING ROOM WITH OTHER PATIENTS. UP IN MOSHE CHAIR FOR COMFORT. NO AGGRESSION NOTED. CONTINUE TO MONITOR FOR AGGRESSION. PROVIDE ONE ON ONE, REDIRECTION/ORIENTATION, CHANGE OF ENVIRONMENT WITH LOW STIMULI NEEDED
--- NOTE | 2019-10-01 13:14 | NUR ---
[facility] The Facility is currently reviewing Updates faxed today. Pao did speak with the on Tuesday concerning [place] or [facility] in [place].
--- NOTE | 2019-10-01 18:36 | NUR ---
Shift chart check completed.
[2019-10-01 19:24] VITALS: BP 139/80
--- NOTE | 2019-10-01 23:00 | NUR ---
PT HAS BEEN PLEASANT, MEDICATION COMPLIANT, ABLE TO COMMUNICATE EFFECTIVELY. PT NOTED TO HAVE CONTINUED DROOLING BUT IT ABLE TO SWALLOW HONEY THICK FLUIDS AND PUREED SOLIDS WITHOUT DIFFICULTY. PT BECAME RESTLESS, AND THIS NURSE APPROACHED PT TO ASK IF HE WAS READY FOR BED, PT STATES THAT HE IS. PT ASSISTED X 2 ASSIST INTO BED. RESTING QUIETLY AT THIS TIME. NO ADVERSE MOODS OR BEHAVIORS NOTED. NO NOTED AGGRESSION OR AGITATION. CONTINUE TO MONITOR Q15 MIN PER POLICY FOR SAFETY.
--- NOTE | 2019-10-02 02:28 | NUR ---
The patient has no complaints and is resting comfortably. CRISTI NOEL
--- NOTE | 2019-10-02 05:58 | NUR ---
PATIENT SLEPT APPROX 2 HOURS THROUGHOUT THE NIGHT, UNINTERRUPTED. NO DISTRESS NOTED.
--- NOTE | 2019-10-02 07:10 | NUR ---
PHYSICAL THERAPY Patient seen this am for therapy visit and was sitting up in activity room Olya chair upon therapist arrival. Patient identified by name / and was very pleasant, talkative, alert this session. Patient transfers sit to stand, MIN A and ambulated 20'x 2, wh walker, Min A, demonstrating initial retrograde standing posture and improved stride. Patient needed v/c to actually slow down gait velocity to improve safety awareness and needed brief seated rest break due to quick onset of fatigue. Patient returned to activity room Olya chair and remained at table awaiting breakfast under [facility] staff Supervision. Will continue per POC as tolerated, total treatment time 17 minutes. Jerrod Kaiser, SENIOR UI DEVELOPER
--- NOTE | 2019-10-02 07:30 | NUR ---
OT NOTE Prior to coming to the floor spoke with Jillian and reported that therapy was coming to the floor to treat this pt. Pt was seen this A.M. 1:1 for 25 minute OT session with BAKER OPERATOR AUTOMATIC and nursing staff present for observation only. Upon arrival pt was sitting upright in the irina chair in the dining acosta. Pt identified by name and and was very verbal this session. Pt completed AROM to B shoulders, elbows, wrsit, and digit joints over all planes of motion for 1 X 10. Pt was then taken out to the hallway where he completed multiple sit to stand transfers from chair level with modA and use of w/w for UE support. Challenged pt's static standing tolerance needed for increased I in self care tasks and functional transfers, pt was able to tolerate aprox 4 minutes at a time before sitting due to fatigue. Pt was left sitting upright in the irina chair in the dining acosta under [facility] staff supervision. Continue with rec D/C plan to return to [facility]. ALYSSA Larsen/Nahum
[2019-10-02 07:38] VITALS: BP 130/78
--- NOTE | 2019-10-02 08:18 | NUR ---
SPEECH PATHOLOGY Patient was seen for treatment this am during breakfast meal. Patient was awake and alert today. He was sitting upright in irina chair in activity room with peers. He was able to feed himself today but needed some encouragement to eat. He remains on pureed diet with honey thick liquid. He was trialed with nectar thick liquid but coughing episodes were displayed post swallow. Recommend he remain on puree with honey thick liquid. Recommend continuation of safe swallow precautions for safety, which include upright positioning, small bites/sips, slow consumption, alternating consistencies and posterior placement as needed. Patient's status can vary from total feed with cues to swallow, to patient feeding himself with mild cues for safety during the meal. Continue plan. JANAK GUERRERO MSCCC-FACE CLEANER
--- NOTE | 2019-10-02 08:30 | NUR ---
Treatment Plan meeting held this a.m. with LUAN Stokes, RN, AT, PEDIATRIC NEUROLOGIST-S and Home Care Nurse. Plan for discharge /Tuesday. Pt. has not been accepted to SNF. Referrals Pending to [facility].
--- NOTE | 2019-10-02 11:11 | NUR ---
Last 24 Hours of Clinicals faxed to [facility].
--- NOTE | 2019-10-02 11:35 | NUR ---
KYRA BELTRAN SHEARING SHED WORKER ON UNIT TO ASSESS PT, UPDATE PROVIDED.
--- NOTE | 2019-10-02 14:10 | NUR ---
PT ALERT TO PERSON ONLY, THINKS HE IS IN [facility] IN [place] AND THE YEAR IS 1919, CONFUSION AND SHORT TERM MEMORY DEFICITS NOTED PER PT BASELINE. STAFF PROVIDED RE-ORIENTATION. PT MED COMPLIANT WITHOUT DIFFICULTY, UNABLE TO PROVIDE MED EDUCATION D/T COGNITION. PT CALM, PLEASANT AND COOPERATIVE WITH STAFF. NO RESTLESS OR AGITATION NOTED AT THIS TIME. NO HALLUCINATIONS OR DELUSIONS NOTED. NO SUICIDAL THOUGHTS OR BEHAVIORS NOTED. PT CONTINUES TO DROOL. PT REMAINS ON A PUREED DIET WITH HONEY THICK LIQUIDS, TOLERATES WITHOUT ISSUE, REQUIRES VERBAL CUES AT TIMES TO SWALLOW. PT REQUIRED ASSISTANCE FROM STAFF DURING LUNCH WITH FEEDING. PT UP TO A GERICHAIR, REQUIRES 2 STAFF ASSIST FOR TRANSFERS AND CARE. PT INCONTINENT OF BOWEL, CARE PROVIDED NEEDED. SMITH REMAINS INTACT DRAINING CLOUDY, YELLOW URINE. PLAN IS TO MONITOR PT BEHAVIORS ON Q15 MIN SAFETY CHECKS, ENCOURAGE MED COMPLIANCE, PROVIDE EMOTIONAL SUPPORT AND 1:1 FOR PT TO VOICE FEELINGS.
--- NOTE | 2019-10-02 15:45 | NUR ---
GROUP B PT WAS PRESENT FOR GROUP BUT WAS SLEEPING RECLINED IN A MOSHE CHAIR. PT WOKE A FEW TIMES, LOOKED AROUND AND WENT BACK TO SLEEP.
--- NOTE | 2019-10-02 17:53 | NUR ---
SPOKE WITH DR CLIFTON AT [phone] RE: PT INTAKE OF [id number] AND OUTPUT OF 300CC TODAY. PT BLADDER SCANNED FOR 80CC. PER DR CLIFTON ORDER A C&S. ADVISED THAT IT WILL BE A LITTLE WHILE BEFORE WE ARE ABLE TO SEND IT OUT DUE TO STAFF JUST EMPTYING SMITH. NO FURTHER ORDERS AT THIS TIME.
[2019-10-02 19:59] VITALS: BP 128/72
--- NOTE | 2019-10-02 20:30 | NUR ---
MORE INTERACTIVE AT THIS TIME. TOOK PM MEDICATION WITHOUT DIFFICULTY. SPEECH REMAINS SLURRED AND NONSENSICLE. HAD SNACK PROVIDED BY STAFF. URINE SENT PER ORDERS
[2019-10-02 21:43] LABS: BILIRUBIN 1+ (NEGATIVE); BLOOD TRACE-INTACT (NEGATIVE); CLARITY CLOUDY (CLEAR); COLOR YELLOW (YELLOW); GLUCOSE NEGATIVE (NEGATIVE); KETONE NEGATIVE (NEGATIVE)
[2019-10-02 21:44] LABS: LEUKO ESTERASE 3+ (NEGATIVE); NITRITE POSITIVE (NEGATIVE)
[2019-10-02 21:45] LABS: BACTERIA 4+; MUCOUS 1+; TRIP PHOS CRYSTALS 1+; WBC 41-50 wbc/hpf (0-5)
--- NOTE | 2019-10-02 22:09 | NUR ---
NOTIFIED DR JIMENEZ OF URINE RESULTS. AWAITING ORDERS
--- NOTE | 2019-10-02 22:09 | NUR ---
NOTIFIED DR JIMENEZ OF URINE RESULTS. AWAITING ORDERS
--- NOTE | 2019-10-02 22:37 | NUR ---
MIXED MONURIL AND GAVE TO CLIENT. HE IMMEDIATLY CRUSHED THE CUP SPILLING IT ALL OVER THE TRAY AND FLOOR. THEN PROCEEDED TO LAUGH. WILL TRY AGAIN IN MORNING
--- NOTE | 2019-10-02 22:37 | NUR ---
MIXED MONURIL AND GAVE TO CLIENT. HE IMMEDIATLY CRUSHED THE CUP SPILLING IT ALL OVER THE TRAY AND FLOOR. THEN PROCEEDED TO LAUGHT. WILL TRY AGAIN IN MORNING
--- NOTE | 2019-10-03 06:04 | NUR ---
SLEPT APPROX 3 BROKEN HOURS
--- NOTE | 2019-10-03 06:08 | NUR ---
SLEPT APPROX 3 BROKEN HOURS
--- NOTE | 2019-10-03 07:10 | NUR ---
PHYSICAL THERAPY Patient seen this am for therapy and was sitting up in Quiet room Olya chair upon therapist arrival. Patient identified by name / and presented with bouts of increased confusion / "mumbling" verbal responses. Patient however was able to follow all therapy commands and was joined by OT religious assistant for observation this session. Patient transfers sit to stand with MIN A, tolerating approx 30-40 seconds static stand, demonstrating retrograde posture. Patient ambulates with use of wh walker, MIN A, 15'x 1, then additional 10'x 1, demonstrating festinating gait pattern and bouts of "freezing". Patient also fatigues quickly and requires multiple v/c's to increased stride with BIG steps. Patient returned to his Olya chair in activity room awaiting breakfast, under [facility] staff Supervision. Will continue per POC as tolerated, total treatment time 17 minutes. Jerrod Kaiser, PUBLIC HEALTH AIDES TEACHER
--- NOTE | 2019-10-03 07:25 | NUR ---
OT NOTE Prior to coming to the floor spoke with nurse Bennett and reported that therapy was coming to the floor to treat this pt. Pt was seen this A.M. 1:1 for 25 minute OT session with PURCHASING SPECIALIST and nursing staff present for observation only. Upon arrival pt was sitting upright in the irina chair in the quiet room. Pt identified by name and and had no complaints at this time. Pt was taken to the bathroom where he completed grooming task while seated consisting of washing his hands and face with SBA after set up. Pt was then taken out the hallway where he completed multiple sit to stand transfers from chair level with Manny and use of w/w for UE support. Challenged pt's static standing tolerance needed for increased I in self care tasks and functional transfers. Pt was able to tolerate aprox 4 minutes at a time before sitting due to fatigue. Pt was left sitting semi reclined in the irina chair in the dining acosta under [facility] staff supervision and lap tray in place. Continue with rec D/C plan to return to [facility]. ALYSSA Larsen/Nahum
--- NOTE | 2019-10-03 07:43 | NUR ---
Patient eating breakfast in dining room with peers. Speech therapist assisting pt with breakfast. Respirations easy and regular. Vital signs stable. No overt distress. [facility] on unit to see pt at this time, update given.
[2019-10-03 07:44] VITALS: BP 141/81
--- NOTE | 2019-10-03 08:02 | NUR ---
SPEECH PATHOLOGY Patient was seen for treatment this am, conducted during breakfast meal. Patient was alert, sitting upright in irina chair in activity room with peers. He was able to feed himself though he mostly drank thick liquids instead of consume food items. Encouragment to eat was provided and was somewhat helpful. Patient remains on puree and honey thick liquid for safety. Liquid at nectar consistency was again trialed however when he drinks independently he consumes consecutive sips with coughing observed post swallow. He displays no overt difficulty with honey thick liquid. Spoke with his aide regarding status and need to continue with current diet. Continue therapy plan. JANAK GUERRERO MSCCC-INTELLECTUAL PROPERTY PARALEGAL
--- NOTE | 2019-10-03 08:30 | NUR ---
Treatment Plan meeting was held with Dr. Clay on Telephone and TRENCH PIPE LAYER HELPER Divya, RN, AT, CLINICAL RN-S and Supervisor Denture Department in attendance. Plan for discharge Next week. Referral Pending to [facility].
--- NOTE | 2019-10-03 11:35 | NUR ---
AM GROUP PT ATTENDED MORNING GROUP THERAPY AND PARTICIPATED TO THE BEST OF HIS ABILITY. PT ATTEMPTED EXERCISES AND BALL TOSS. PT EXHIBITED NO ADVERSE BEHAVIORS WHILE IN GROUP.
--- NOTE | 2019-10-03 13:46 | NUR ---
Call placed to [facility]. Advised that an Answer of Acceptance or Denile is needed today. Updates were faxed to Facility yesterday. Facility has not been in touch with .
--- NOTE | 2019-10-03 15:07 | NUR ---
Left a voicemail message for pt's Radha Morel providing an update to pt's discharge plan.
--- NOTE | 2019-10-03 15:29 | NUR ---
Spoke with Pt. via telephone concerning Discharge Plans. She states that "Did not receive a call from [facility]". "They have left me no messages on My Home phone or cell phone". Advised that Discharge Plan needs to be solidified and that [facility] has not accepted Patient. states that she will call [facility] lomeli. Provided with Malgorzata Moreno Name as the last point of contact that Accounts Payable Specialist had Spoken with Today. Offered other Choice of [facility] due to bed Availability and Declined. Pt. is still unable to return to [facility] due to complex needs. Will Follow.
--- NOTE | 2019-10-03 15:47 | NUR ---
GROUP B PT WAS PRESENT FOR GROUP THERAPY AND WAS CONTENT TO SIT AND OBSERVE. PT WAS QUIET AND CONTENT. PT IS DIFFICULT TO UNDERSTAND AND HAD SOME FRUSTRATION WITH COMMUNICATING. PT EXHIBITED NO AGITATION OR AGGRESSION WHILE IN GROUP.
--- NOTE | 2019-10-03 16:27 | NUR ---
PT ALERT TO PERSON ONLY, CONFUSION AND SHORT TERM MEMORY DEFICITS NOTED PER PT BASELINE. PT CALM, NO ADVERSE MOODS OR BEAHVIORS NOTED AT THIS TIME. PT MED COMPLIANT WITHOUT DIFFICULTY, UNABLE TO PROVIDE MED EDUCATION D/T COGNITION. NO HALLUCINATIONS OR DELUSIONS NOTED AT THIS TIME. NO SUICIDAL THOUGHTS OR BEHAVIORS NOTED. PT UP TO A GERICHAIR, REQUIRES 1-2 STAFF ASSIST FOR TRANSFERS AND CARE. PT SMITH REMAINS INTACT, DRAINING DARK MOE URINE. PT INCONTINENT OF BOWEL AND BLADDER, CARE PROVIDED NEEDED. PLAN IS TO MONITOR PT BEHAVIORS ON Q15 MIN SAFETY CHECKS, ENCOURAGE MED COMPLIANCE, PROVIDE EMOTIONAL SUPPORT AND 1:1 FOR PT TO VOICE FEELINGS.
[2019-10-03 20:00] VITALS: BP 138/78
--- NOTE | 2019-10-03 20:48 | NUR ---
NON VERBAL OTHER THAN A GRUNT OR 2. MEDICATION COMPLIANT. SNACK AND FLUIDS PROVIDED BY STAFF. MOVING SELF AROUND IN CHAIR. ORIENTED TO SELF ONLY. WILL MONITOR FOR CHANGES IN BEHAVIOR/MOOD AND Q 15 MINS AND PRN FOR SAFETY
--- NOTE | 2019-10-04 05:28 | NUR ---
AWAKE AND POUNDING. REFUSES AM CARE. REFUSES TO TOILET 24 HR chart check completed.
--- NOTE | 2019-10-04 07:10 | NUR ---
PHYSICAL THERAPY Patient seen this am for therapy visit and was sitting up in Quiet room Olya chair upon therapist arrival. Patient identified by name / and was very talkative this morning, however hard to understand most of the time secondary to mumbling speech. OT scheduling assistant was present for observation this session as patient transfers sit to stand MOD A. Patient ambulates with use of wh walker, MIN A, demonstrating "marching" gait pattern, 25'x 1 and returned to Olya chair with increased fatigue. Patient needed multiple v/c's to complete all task, including seated B LE therex, all planes, x 10 reps each. Patient remained in chair with lap tray in activity room under [facility] staff Supervision. Will continue per POC as tolerated, total treatment time 17 minutes. Jerrod Kaiser, TELEVISION JOURNALIST
--- NOTE | 2019-10-04 07:20 | NUR ---
OT NOTE Prior to coming to the floor spoke with nurse Bennett and reported that therapy was coming to the floor to treat this pt. Pt was seen this A.M. 1:1 for 24 minute OT session with MOVIE WRITER and nursing staff present for observation only. Upon arrival pt was sitting semi reclined in the irina chair in the quiet room. Pt identified by name and and had no complaints at this time. Pt completed AROM to BUE over all planes of motion for 1 X 10 to increase and restore maximum functional use. Pt was then taken out to the hallway where he completed multiple sit to stand transfers from chair level with Manny and use of w/w for UE support. Challenged pt's static standing tolerance needed for increased I in self care tasks and functional transfers. Pt was able to tolerate aprox 2 minutes at a time before sitting due to fatigue. While seated in the chair pt completed grooming task of washing his face which he completed with SBA after set up. Pt was left sitting upright in the irina chair in the dining acosta with lap tray on for safety and [facility] supervision. Continue with rec D/C plan to return to [facility]. ALYSSA Larsen/Nahum
[2019-10-04 07:47] VITALS: BP 112/66
--- NOTE | 2019-10-04 08:15 | NUR ---
SPEECH PATHOLOGY Patient was seen for treatment this am. Patient was alert, sitting upright in activity room with peers. Confusion was displayed. He was eating breakfast, consisting of pureed foods and honey thick liquid. Patient was able to feed himself today. Overall intake of food was poor, but he displayed no overt difficulty tolerating food or liquid. Encouragement was provided to eat, but patient would often state "I will" but did not. Recommend he remain on pureed diet and honey thick liquid as this is his safest diet due to current status. He is able to feed himself and use safe swallow precautions independently. He no longer requires speech services therefore discharge is recommended at this time. Thank you for this referral. It has been a pleasure taking part in this patient's care. JANAK GUERRERO MSCCC-ORCHARD MANAGER
--- NOTE | 2019-10-04 09:00 | NUR ---
Treatment Plan meeting was held this morning via telephone with Dr. Clay, RN, AT, TANK TENDER-S and Malted Milk Mixer. Plan for discharge Next Week. Pt. is for placement. Referral to [place] Pending. Will Fax 24 hour Updates today and Inquire with [facility] to see if they are taking admissions.
--- NOTE | 2019-10-04 11:40 | NUR ---
AM GROUP/RELAXATION PT WAS PRESENT FOR MORNING GROUP THERAPY AND PARTICIPATED BY LOOKING AT THE NEWSPAPER. PT EXHIBITED MILD CONFUSION ASKING, "WHERE DID I PARK MY CAR?" PT SPEECH IS VERY HARD TO UNDERSTAND BUT SEEMED TO HAVE PATIENCE WITH IT. PT EXHIBITED NO ADVERSE BEHAVIORS WHILE IN GROUP.
--- NOTE | 2019-10-04 11:57 | NUR ---
Spoke with Karly Lopez in admissions at [facility]. Advised of request for referral faxed to facility. Karly states they will review once received. Referral faxed to Facility [phone].
--- NOTE | 2019-10-04 13:21 | NUR ---
24 Hour Clinical Updates faxed to [facility].
--- NOTE | 2019-10-04 13:43 | NUR ---
PT ALERT TO PERSON ONLY, CONFUSION AND SHORT TERM MEMORY DEFICITS NOTED PER PT BASELINE. PT CALM, RESTLESS AT TIMES. PT MED COMPLIANT WITHOUT DIFFICULTY, UNABLE TO PROVIDE MED EDUCATION D/T COGNITION. NO HALLUCINATIONS OR DELUSIONS NOTED. NO SUICIDAL THOUGHTS OR BEHAVIORS NOTED. PT UP TO A GERICHAIR D/T INABILITY TO AMBULATE INDEPENDENTLY. PT SMITH REMAINS INTACT DRAINING DARK YELLOW URINE. PT INCONTINENT OF BOWEL AND BLADDER, CARE PROVIDED NEEDED. PLAN IS TO MONITOR PT BEHAVIORS ON Q15 MIN SAFETY CHECKS, ENCOURAGE MED COMPLIANCE, PROVIDE EMOTIONAL SUPPORT AND 1:1 FOR PT TO VOICE FEELINGS, PROVIDE LOW STIMULATION ENVIRONMENT FOR PT TO CALM.
--- NOTE | 2019-10-04 14:33 | NUR ---
Spoke with pt's Radha Morel and discussed status of pt's discharge plan. Radha Morel would still like [facility] but is also allowing a referral to [facility].
--- NOTE | 2019-10-04 15:38 | NUR ---
GROUP B PT ATTENDED AFTERNOON GROUP THERAPY AND PARTICIPATED TO THE BEST OF HIS ABILITY. PT WAS ENGAGED AND PLEASANT. PT EXHIBITED NO ADVERSE BEHAVIORS WHILE IN GROUP.
--- NOTE | 2019-10-04 19:42 | NUR ---
SITTING EATING SNACK. NO OUTBURST AT THIS TIME. WATCHING TV. NO CHANGE IN DROOLING. SMITH PATENT FOR MOE CLOUDY URINE
--- NOTE | 2019-10-04 19:42 | NUR ---
SITTING EATING SNACK. NO OUTBURST AT THIS TIME. WATCHING TV. NO CHANGE IN DROOLING. SMITH PATENT FOR MOE CLOUDY URINE
[2019-10-04 20:00] VITALS: BP 110/62
--- NOTE | 2019-10-04 20:57 | NUR ---
SPIT OUT ALL PM MEDICATIONS. REFUSES TO TAKE ANYTHING BY MOUTH AT THIS TIME
--- NOTE | 2019-10-04 22:06 | NUR ---
SCREAMING I STOLE IT ...HELP HELP HELP BUT REFUSES TO BE COMFORTED OR REDIRECTED. VISTARIL IM 75MG TO BE GIVEN
--- NOTE | 2019-10-05 00:20 | NUR ---
ROLANDO EFFECTIVE 24 HR chart check completed.
--- NOTE | 2019-10-05 00:20 | NUR ---
ROLANDO EFFECTIVE 24 HR chart check completed.
--- NOTE | 2019-10-05 07:10 | NUR ---
PHYSICAL THERAPY Patient seen this am for therapy visit and was sitting up in activity room Olya chair upon therapist arrival. Patient identified by name / and presented with bouts of mild "drooling". OT service assistant was also present for observation only as patient transfers sit to stand at handrail in [facility] x 2, while demonstrating POOR upright standing posture. Patient resisted multiple therapist request to hold on to handrail and becomes easily agitated. Patient tolerated approx 1 minute static stand and became a little combative during tactile cueing to improve posture / standing safety balance. Patient returned to his Olya chair and following brief seated rest was unable to complete seated therex secondary to decreased focus on task. Patient remained in activity room Olya chair with lap tray, under [facility] staff Supervision. Will continue per POC as tolerated, total treatment time 12 minutes. Jerrod Kaiser, POTATO CHIP SACKING MACHINE OPERATOR
--- NOTE | 2019-10-05 07:28 | NUR ---
OT NOTE Prior to coming to the floor spoke with nurse Torres and reported that therapy was coming to the floor to treat this pt. Pt was seen this A.M. 1:1 for 18 minute OT session with MORTGAGE FUNDER and nursing staff present for observation only. Upon arrival pt was sitting upright in the irina chair in the dining acosta. Pt identified by name and and had no complaints at this time. Pt was taken to the hallway where he completed sit to stand from chair level with modA X 2. Challenged pt's static standing tolerance needed for increased I in self care tasks and functional transfers. Pt was able to tolerate aprox 30 seconds before becoming very aggitated resulting in sitting. While providing tactile prompts pt became aggitated and would not let go of therapist wrist. Throughout session pt was reaching and talking to items/others that were not there. Pt was left sitting semi reclined in irina chair in the dining acosta with lap tray in place and under [facility] staff supervision. Continue with rec D/C plan to return to [facility]. AL Larsen
[2019-10-05 08:00] VITALS: BP 120/64
--- NOTE | 2019-10-05 10:46 | NUR ---
Treatment plant meeting was held with LUAN Stokes, RN, AT, MACHINE SHOP HELPER-S and Clearance Cutter. Plan for discharge Next Week. Pt. is for placement. Pending Referral to [facility]. Referral faxed 10/04/19 to [place].
--- NOTE | 2019-10-05 11:37 | NUR ---
AM GROUP PT ATTENDED MORNING GROUP THERAPY AND PARTICIPATED TO THE BEST OF HIS ABILITY. PT WAS TALKATIVE AND COHERENT BUT HIS SPEECH IS HARD TO UNDERSTAND AND THIS FRUSTRATES HIM. PT WAS GIVEN A MARKER AND PAPER TO WRITE AND WAS ABLE TO EXPLAIN THAT HE HAS AN EYE/VISION DISORDER. PT EXHIBITED NO ADVERSE BEHAVIORS WHILE IN GROUP.
--- NOTE | 2019-10-05 12:39 | NUR ---
PRN TYLENOL 650MG PO GIVEN AT THIS TIME PER PT C/O HEADACHE. WILL MONITOR FOR EFFECT.
--- NOTE | 2019-10-05 12:41 | NUR ---
OCCUPATIONAL THERAPY CO-SIGN I approve of the Occupational Therapy notes written above. YUE NIELSEN, OTR/L
--- NOTE | 2019-10-05 12:55 | NUR ---
PHYSICAL THERAPY CO-SIGN I approve of the Physical Therapy notes written above. Briana Weston PT
--- NOTE | 2019-10-05 13:07 | NUR ---
0P: CONFUSION, INCREASED VERBAL AND PHYSICAL AGGRESSION. PATIENT AGGRESSIVE DURING HANDS ON CARE. VERBALLY THREATENING TO "BEAT ALL YOUR ASSES AND THROW YOU IN THE RIVER" LOOKING AT CO NURSE. TWISTING STAFF'S FINGERS AND ATTEMPTING TO BITE NURSING AFTER JUSTINE-CARE PROVIDED AND TRANSFERING INTO MOSHE CHAIR. I: ONE ON ONE, REDIRECTION/ORIENTATION AND CHANGE OF ENVIRONMENT WITH LOW STIMULI. R: INEFFECTIVE. PATIENT IS ALERT TO PERSON AND PLACE WITH CONFUSION. LONG/SHORT TERM MEMORY DEFICITS. MOOD IS ANGRY/IRRITABLE, LABILE. DENIES ANY HALLUCINATIONS, DELUSIONS, HI/SI. PRN TYLENOL 650MG PO GIVEN FOR COMPLAINTS OF PAIN. NO RESPONSE TO INTERNAL STIMULI. REFUSED MEDICATIONS BY SPITTING THEM OUT. Q 15 MINUTE SAFETY CHECKS. 3 PERSON ASSIST WITH ALL ACTIVITIES OF DAILY LIVNG, SMITH CATHETER IN PLACE, DARK MOE COLOR. INCONTINENT OF BOWEL. SET UP FOR MEALS, INTAKES VARY WITH MUCH ENCOURAGEMENT. POOR PO INTAKE NOTED. ROCEPHIN 1MG IM GIVEN IN RIGHT BUTTOCKS. PARTICIPATED IN MORNING GROUP SESSION P: PRN VISTARIL 75MG IM GIVEN IN DELTIOD AND IN HALLWAY WITH CLOSE MONITORING.
--- NOTE | 2019-10-05 13:37 | NUR ---
GROUP A PT WAS PRESENT FOR GROUP THERAPY AND PARTICIPATED BY OBSERVING AND SOCIALIZING. PT ATTEMPTS CONVERSATION BUT IS VERY HARD TO UNDERSTAND. PT EXHIBITED NO ADVERSE BEHAVIORS WHILE IN GROUP.
--- NOTE | 2019-10-05 13:40 | NUR ---
PRN TYLENOL EFFECTIVE. PT VOICES NO FURTHER C/O PAIN/DISCOMFORT.
--- NOTE | 2019-10-05 14:07 | NUR ---
PATIENT CONTINUES TO BE IN HALLWAY SITTING IN MOSHE CHAIR, ATTEMPTING TO SWING AT NURSE. SPACE PROVIDED AT THIS TIME.
--- NOTE | 2019-10-05 14:30 | NUR ---
PRN VISTARIL EFFECTIVE. NO FURTHER AGGRESSIVE TOWARDS STAFF.
--- NOTE | 2019-10-05 15:22 | NUR ---
Clinical Updates faxed to [facility].
--- NOTE | 2019-10-05 15:34 | NUR ---
Shift chart check completed.
--- NOTE | 2019-10-05 15:41 | NUR ---
GROUP B / OSVALDO PT DID NOT ATTEND AFTERNOON GROUP THERAPY. PT WAS IN THE HALLWAY WITH THE NURSE FOR OBSERVATION.
[2019-10-05 20:00] VITALS: BP 111/70
--- NOTE | 2019-10-05 22:00 | NUR ---
Patient climbing out of bed at . Patient bumped left hand and old scab opened up. Patient with scant amount of drainage. 1cm x 0.1cm x <0.1cm. Dr Marcos updated. Patient's , Harrison updated. Nursing supervisor printing and stamping aware. New orders to be received and dressing applied
--- NOTE | 2019-10-05 23:50 | NUR ---
P-DISRUPTIVE, IRRITABLE I-REDIRECTION WITH 1:1 THERAPEUTIC INTERVENTIONS AND COMMUNICATION. PRESENT REALITY. EDUCATE AND ENCOURAGE MEDICATION COMPLIANCE R-MEDICATION COMPLIANT AT HS. PATIENT PROVIDED NOURISHMENT AND FLUIDS AT HS. PATIENT DISRUPTIVE IN QUIET AREA. PATIENT WITH GARBLED, MUMBLED SPEECH. PATIENT YELLING OUT "SULMA". PATIENT WITH SMITH CATHETER INTACT AND PATENT. PATIENT WITH NO HALLUCINATIONS OR DELUSIONS. PATIENT WITH NO HOMICIDAL IDEATIONS AND DENIES SUICIDAL IDEATIONS AT THIS TIME. P-CONTINUE TO ENCOURAGE MEDICATION COMPLIANCE, ENCOURAGE GROUP THERAPY WHILE AWAKE
--- NOTE | 2019-10-06 04:49 | NUR ---
PATIENT WITH 0 HOURS OF SLEEP THROUGHOUT SHIFT. Q 15 MINUTE CHECKS MAINTAINED. 24 HR chart check completed.
[2019-10-06 07:44] VITALS: BP 157/78
--- NOTE | 2019-10-06 17:52 | NUR ---
PT OBSERVED TO BE SHAKING EXTREMITIES AND YELLING OUT AT NO APPARENT OBJECT OR PERSONS. PT IS NOTED TO HAVE GURGLING NOISES WITH INSPIRATION AND EXPIRATION. SUCTIONED SMALL AMOUNT OF THICK MUCOUS, PT RESISTIVE, BITING THE YANKAUR. PT ENCOURAGED TO CLEAR THE REST WITH A COUGH, ABLE TO DO SO. VS [id number]/70 SPO2 99%RA. LCTA, DIMINISHED A&P. PT ASSISTED TO BED, LAYING ON LEFT SIDE FOR PRESSURE RELIEF. HOB ELEVATED 45 DEGREES. NO OVERT DISTRESS NOTED. Q15 MIN MONITORING FOR SAFETY. BED LOW AND LOCKED. BED ALARM ACTIVATED.
[2019-10-06 20:00] VITALS: BP 137/85
--- NOTE | 2019-10-06 23:36 | NUR ---
P-CONFUSION I-REDIRECTION WITH 1:1 THERAPEUTIC INTERVENTIONS AND COMMUNICATION. PRESENT REALITY. EDUCATE AND ENCOURAGE MEDICATION COMPLIANCE R-MEDICATION COMPLIANT AT HS. PATIENT REFUSED NOURISHMENT BUR PROVIDED FLUIDS AT HS. PATIENT WITH GARBLED, MUMBLED SPEECH. PATIENT WITH INTERMITTENT EPISODES OF TREMORS. PATIENT VITAL SIGNS STABLE. PATIENT ALERT AND AROUSABLE. PATIENT WITH NO HALLUCINATIONS OR DELUSIONS. PATIENT WITH NO HOMICIDAL IDEATIONS AND DENIES SUICIDAL IDEATIONS AT THIS TIME. P-CONTINUE TO ENCOURAGE MEDICATION COMPLIANCE, ENCOURAGE GROUP THERAPY WHILE AWAKE
--- NOTE | 2019-10-07 06:17 | NUR ---
PATIENT SLEPT 5 HOURS OF INTERRUPTED SLEEP THROUGHOUT SHIFT. Q 15 MINUTE CHECKS MAINTAINED. 24 HR chart check completed.
[2019-10-07 06:23] LABS: BASO % 0.3 % (0.0-1.0); EOS # 0.1 10*3/uL (0.0-0.4); EOS % 1.9 % (1.0-4.0); HEMATOCRIT 37.8 % (42.0-52.0); LYMPH # 1.3 10*3/uL (1.3-4.4); MEAN CELL VOLUME 89.2 fl (80.0-94.0); MEAN CORPUSCULAR HGB 29.2 pg (27.0-31.0); MEAN CORPUSCULAR HGB CONC 32.8 g/dl (33.0-37.0); MEAN PLATELET VOLUME 11.8 fl (9.6-12.3); MONO # 0.7 10*3/uL (0.1-1.0); MONO % 10.7 % (3.0-9.0); NEUT # 4.1 10*3/uL (2.3-7.9); NEUT % 65.8 % (47.0-73.0); PLATELET COUNT AUTOMATED 197 10*3/uL (130-400); RED BLOOD COUNT 4.24 10*6/uL (4.50-5.90); RED CELL DISTRI WIDTH 13.8 % (0-14.5); WHITE BLOOD COUNT 6.2 10*3/uL (4.8-10.8)
[2019-10-07 06:55] LABS: BUN 21 mg/dl (7-24); CHLORIDE 107 mmol/L (98-107); CREATININE 0.91 mg/dL (0.70-1.30); POTASSIUM 4.4 mmol/L (3.5-5.1); SODIUM 143 mmol/L (136-145)
[2019-10-07 08:09] VITALS: BP 142/82
--- NOTE | 2019-10-07 11:07 | NUR ---
DR HALE AND DR ROCHA ON UNIT TO ASSESS PT, UPDATE PROVIDED.
[2019-10-07 19:57] VITALS: BP 113/88
--- NOTE | 2019-10-07 21:39 | NUR ---
P-CONFUSION, AGGRESSION, AGITATION I-REDIRECTION WITH 1:1 THERAPEUTIC INTERVENTIONS AND COMMUNICATION. PRESENT REALITY. EDUCATE AND ENCOURAGE MEDICATION COMPLIANCE R-PATIENT MEDICATION NOCNOMPLIANT AT HS. PATIENT PROVIDED NOURISHMENT AND FLUIDS AT HS. PATIENT WITH GARBLED, MUMBLED SPEECH. PATIENT WITH INTERMITTENT EPISODES OF TREMORS. PATIENT ATTEMPTING TO GRAB OTHER PATIENTS AND NURSING STAFF WITH USING FIRM SAFETY LAMP KEEPER. PATIENT SMACKED HS MEDICATIONS FROM THIS NURSES HANDS AND ATTEMPTING TO PUNCH NURSING STAFF. PATIENT MEDICATED WITH VISTARIL IM WITH EFFECTIVE RESULTS AT THIS TIME. PATIENT WITH NO HALLUCINATIONS OR DELUSIONS. PATIENT WITH NO HOMICIDAL IDEATIONS AND DENIES SUICIDAL IDEATIONS AT THIS TIME. PATIENT WITH SMITH, SMITH PATENT, AND DRAINING MOE URINE. P-CONTINUE TO ENCOURAGE MEDICATION COMPLIANCE, CONTINUE TO PRESENT REALITY ENCOURAGE GROUP THERAPY WHILE AWAKE
--- NOTE | 2019-10-08 05:16 | NUR ---
PATIENT SLEPT 6 HOURS OF UNINTERRUPTED SLEEP THROUGHOUT SHIFT. Q 15 MINUTE CHECKS MAINTAINED. 24 HR chart check completed.
--- NOTE | 2019-10-08 05:18 | NUR ---
PATIENT SLEPT 6 HOURS OF UNINTERRUPTED SLEEP THROUGHOUT SHIFT. Q 15 MINUTE CHECKS MAINTAINED. 24 HR chart check completed.
--- NOTE | 2019-10-08 07:10 | NUR ---
PHYSICAL THERAPY Patient seen this am for therapy visit and was just awakening supine in bed upon therapist arrival. Patient identified by name / and was a bit sluggish this morning, transfering supine to sit EOB with MOD A. Patient needed a minute or so to fully awaken, then performed sit to stand transfer, MIN A X 2, with use of wh walker standing support. Patient demonstrated initial retrograde posture, requiring v/c to stand tall, then ambulated with wh walker, Min A, 20'x 2, demonstrating festinating gait pattern. Patient received several v/c's to increase stride with BIG steps, while demonstrating "marching" joaquim. Patient returned to activity room Olya chair awaiting breakfast, with lap tray, under [facility] staff Supervision. Will continue per POC as tolerated, total treatment time 14 minutes. Jerrod Kaiser, SET STAFF FITTER
--- NOTE | 2019-10-08 07:30 | NUR ---
OT NOTE Prior to coming to the floor spoke with Jessie and reported that therapy was coming to floor to treat this pt. Pt was seen this A.M. 1:1 for 15 minute OT session with CUSTOMER SUPPORT ANALYST and nursing staff present for observation only. Upon arrival pt was supine in bed. Pt identified by name and on wristband and had no complaints at this time. Pt was very verbal and followed commands 100%. Pt transferred supine to sit EOB with modA X 2 for assist with both UB and BLE's. While sitting EOB pt completed AROM to BUE shoulder, elbow, and digit joints over all planes of motion for 1 X 10 to increase and restore maximum functional use. Pt then while still sitting EOB was given and hairbrush and requested to brush his hair, pt was able to complete with supervision after set up. Pt then completed simple grooming task consisting of washing his hands and face with supervision after set up. Sit to stand then completed from bed level with Manny X 2 and use of w/w for UE support. Upon inital rise pt presented with retrograde posture that required min-modA to correct. Challenged pt's dynamic standing tolerance needed for enhanced endurance and increased I in functional transfers, pt was able to tolerate aprox 3-4 minutes before sitting due to fatigue. Pt was left sitting upright in the dining acosta in the irina chair with lap tray in place and under [facility] staff supervision. Continue with rec D/C plan to return to [facility]. ALYSSA Larsen/Nahum
[2019-10-08 07:42] VITALS: BP 140/67
--- NOTE | 2019-10-08 08:15 | NUR ---
PHYSICAL THERAPY Screen received pt has been evaluated and is on caseload thank you. Briana Weston PT
--- NOTE | 2019-10-08 10:30 | NUR ---
Treatment Plan meeting was held this a.m. with Dr. Clay, APPRENTICE LINEMAN THIRD STEP Divya, RN, AT, ELECTRICAL ENGINEERING DESIGNER-S and Forepart Reducer. Plan for Discharge End of the week or beginning of Next. Pt. is for placement. Referrals pending to [facility] and [facility].
--- NOTE | 2019-10-08 11:31 | NUR ---
AM GROUP/EXERCISE AND REMINISCING PT ATTENDED GROUP THERAPY AND PARTICIPATED TO THE BEST OF HIS ABILITY. PT WAS SLEEPY BUT CONTINUED TO EXERCISE WITH HIS EYES CLOSED. PT EXHIBITED NO ADVERSE BEHAVIORS WHILE IN GROUP.
--- NOTE | 2019-10-08 11:54 | NUR ---
THOMPSON MARSHALL [id number] Please refer to the physician's history and physical for past medical history, comorbid conditions, and allergies. Diagnosis: INTERMITTENT EXPLOSIVE DISORDER Giancarlo Score: 14,MODERATE RISK WOUND DESCRIPTIONS: Wound Number: 1 Left wrist no open areas at time of assessment. Area is pink and blanchable scar tissue noted. No drainage noted at time of assessment. Wound Number: 2 Location of the wound: right hand Type of wound: scab Thickness: Partial Size: 1.6cm x 0.5cm x <0.1cm Tunneling: none Undermining: none Sinus Tract: none Presence of Exudate: none Amount: none Color: Red, brown Odor: None Periwound Skin Appearance: Normal Wound edges: approximated Pain (associated with wound): none at time of assessment How does patient state this happened? pt unable to state how this happened Wound Number:3 Left buttocks and Wound Number:4 Right buttocks not assessed at this time due to patient in gerichair ready for lunch. These areas were pink and blanchable last time of assessment. No open areas noted at time of assessment. No drainage noted at time of assessment. Wheelchair cushion in use at time of assessment today. Wound Number: 5 Location of the wound: left wrist Type of wound: skin tear Thickness: Partial Size: 0.5cm x 0.2cm x 0.1cm Tunneling: none Undermining: none Sinus Tract: none Presence of Exudate: none Amount: none Color: Red Odor: None Periwound Skin Appearance: Normal Wound edges: approximated Pain (associated with wound): none at time of assessment How does patient state this happened? pt unable to state how this happened Surface the patient is resting on: Proform SKIN PREVENTION RECOMMENDATION: 1. Pressure redistribution support surface as appropriate 2. Elevate heels 3. Remove boots/TEDS every shift and reapply 4. Head of bed 30 degrees as tolerated 5. Assess nutrition and hydration 6. Manage moisture 7. Avoid the use of containment devices while in bed 8. Use absorptive products on surfaces limit layers of linens on bed 9. Turn and reposition every 1-2 hours in bed and every 1 hour in chair as tolerated 10. Weight shifts every 15 minutes while up in chair 11. Offloading with pillows or device to keep heels elevated off bed 12. Monitor skin at least every shift 13. Inspect under medical devices twice a day WOUND TREATMENT RECOMMENDATIONS: Continue wheelchair cushion when out of bed.
--- NOTE | 2019-10-08 13:25 | NUR ---
Clinical Updates faxed to [facility] and [facility]. Spoke with Pao at [facility] who would like to review notes from the weekend. [facility] has still not accepted. Call placed to [facility] and Spoke with Karly Lopez in admissions. She said facility is still reviewing referral and requested updates from the weekend to review.
--- NOTE | 2019-10-08 14:05 | NUR ---
GROUP A PT WAS PRESENT FOR GROUP SITTING IN A MOSHE CHAIR WITH THE TRAY ON AND BECAME IRRITATED BECAUSE IT WAS ON. ONCE TRAY WAS REMOVED, PT ATTEMPTED TO STAND ON HIS OWN AND IS VERY UNSTEADY. PT AGREED TO SIT AND TO HAVE HIS CLOTHES CHANGED WHICH HAD FOOD SPILLED ALL OVER THEM. PT WAS TAKEN TO W FOR HYGIENE.
--- NOTE | 2019-10-08 16:10 | NUR ---
OT NOTE Nursing screen received. Patient is currently on caseload for OT treatment. Thank you. Kellie Michelle, OTR/L
--- NOTE | 2019-10-08 18:14 | NUR ---
PT RESISITIVE WITH AM PO MEDS. PT RESTLESS AT TIMES. NURSE ENCOURAGED MED COMPIANCE, PROVIDED EMOTIONAL SUPPORT AND 1:1 FOR PT TO VOICE FEELINGS PT ALERT TO PERSON ONLY, CONFUSION AND SHORT TERM MEMORY DEFICITS NOTED PER PT BASELINE. PT MED COMPLIANT WITH MUCH ENCOURAGEMENT. PT REMAINS RESTLESS AT TIMES. PT UP TO A GERICHAIR, REQUIRES 2 STAFF ASSIST FOR TRANSFERS AND CARE. PT SMITH REMAINS INTACT, DRAINING DARK COLORED URINE. PT INCONTINENT OF BOWEL, CARE PROVIDED NEEDED. STAFF WILL CONTINUE TO MONITOR PT BEHAVIORS ON Q15 MIN SAFETY CHECKS, ENCOURAGE MED COMPLIANCE, PROVIDE EMOTIONAL SUPPORT AND 1:1 FOR PT TO VOICE FEELINGS.
[2019-10-08 19:01] VITALS: BP 145/81
--- NOTE | 2019-10-08 20:25 | NUR ---
MORE ALERT AND WORDS CLEARER. MEDICATION COMPLIANT. STATES HE IS FEELING BETTER TODAY. LESS DROOLING NOTED.
--- NOTE | 2019-10-09 04:04 | NUR ---
HAS SLEPT WELL IN CHAIR IN QUIET ROOM 24 HR chart check completed.
--- NOTE | 2019-10-09 07:10 | NUR ---
PHYSICAL THERAPY Patient seen this am for therapy visit and was sitting up in Quiet room Olya chair upon therapist arrival. Patient identified by name / and was more alert, talkative this morning. Patient performed seated B LE therex, all planes, x 10 reps each, demonstrating decreased full AROM during LAQ ex. Patient transfers sit to stand MIN A and ambulates with use of wh walker, CGA, 40'x 1, demonstrating bouts of retrograde posture, decreased stride and unsteady, "freezing" episodes during 180 degree turns. Patient also demonstrated a marching joaquim and very happy with his performance today. Patient returned to his Olya chair in activity room with lap tray, under [facility] staff Supervision and will continue per POC as tolerated. Total treatment time 17 minutes. Jerrod Kaiser, MERCHANDISER SEASONAL
--- NOTE | 2019-10-09 07:25 | NUR ---
OT NOTE Prior to coming to the floor spoke with Jessie and reported that therapy was coming to the floor to treat this pt. Pt was seen this A.M. 1:1 for 25 minute OT session with MANAGER SOCIAL WORK and nursing staff present for observation only. Upon arrival pt was sitting in the irina chair in the dining acosta. Pt identified by name and and had no complaints at this time. Pt was very verbal and followed commands 100%. Pt completed ther ex to BUE over all planes of motion for 1 X 10 to increase and restore maximum functional use with BUE's. Pt was then taken out to the hallway where he completed multiple sit to stand transfers from chair level with Manny and use of w/w for UE support. Upon inital rise pt required Manny to correct retrograde posture. Challenged pt's dynamic standing tolerance needed for enhanced endurance and pt was able to tolerate aprox 5 minutes at a time before sitting due to fatigue. Pt was left sitting upright in the dining acosta in the irina chair with lap tray in place and under [facility] staff supervision. Continue with POC as able. ALYSSA Larsen/Nahum
--- NOTE | 2019-10-09 07:31 | NUR ---
Patient resting quietly with no c/o discomfort. Respirations easy and regular. Vital signs stable. No overt distress. GIVENS,ISH
[2019-10-09 07:50] VITALS: BP 142/64
--- NOTE | 2019-10-09 09:00 | NUR ---
Treatment Plan meeting was held this a.m. with LUAN Stokes, RN, AT, PHARMACOEPIDEMIOLOGIST-S and Probate Clerk. Plan for discharge Next Week. Pt. requires placement. Pending Referrals to [facility].
--- NOTE | 2019-10-09 11:34 | NUR ---
AM GROUP/PUZZLES PT WAS PRESENT FOR MORNING GROUP THERAPY BUT IS UNABLE TO PARTICIPATE DUE TO COGNITIVE IMPAIRMENT. PT SLEPT MOST OF GROUP.
--- NOTE | 2019-10-09 15:24 | NUR ---
Pt sitting in irina-chair in activity room. Pt would respond with brief replies when this underwriter attempted to engage pt in conversation. Pt was drooling but not excessively. Pt made brief eye contact with this underwriter.
--- NOTE | 2019-10-09 15:36 | NUR ---
GROUP B PT ATTENDED GROUP THERAPY BUT IS UNABLE TO PARTICIPATE AT THIS TIME. PT WAS OBSERVANT AND TALKATIVE. PT IS HARD TO UNDERSTAND BUT WAS CONCERNED ABOUT HIS JACKET. PT WAS EASILY REDIRECTABLE. PT EXHIBITED NO ADVERSE BEHAVIORS WHILE IN GROUP.
--- NOTE | 2019-10-09 16:18 | NUR ---
NO ADVERSE MOODS OR BEHAVIORS NOTED. PT ALERT TO PERSON ONLY, CONFUSION AND SHORT TERM MEMORY DEFICITS NOTED PER PT BASELINE. PT CALM. PT MED COMPLIANT WITHOUT DIFFICULTY, UNABLE TO PROVIDE MED EDUCATION D/T COGNITION. NO HALLUCINATIONS OR DELUSIONS NOTED. NO SUICIDAL THOUGHTS OR BEHAVIORS NOTED. PT UP TO A GERICHAIR, WILL AMBULATE SHORT DISCTANCES WITH PHYSICAL THERAPY USING A WHEELED WALKER AND 1 ASSIST. PT INCONTIENT OF BLADDER, SMITH INTACT DRAINING DARK YELLOW URINE. PLAN IS TO MONITOR PT BEHAVIORS ON Q15 MIN SAFETY CHECKS, ENCOURAGE MED COMPLIANCE, PROVIDE RE-ORIENTATION AND REDIRECT NEEDED.
[2019-10-09 18:58] VITALS: BP 104/54
--- NOTE | 2019-10-09 20:17 | NUR ---
REFUSED SNACK BUT DID TAKE PM MEDICATIONS WITH ENCOURAGEMENT. CONTINUES TO DROOL. WORD SALAD SENTENCES. SMITH PATENT FOR OME URINE. WILL MONITOR FOR CHANGES IN MOOD/BEHAVIOR AND MONITOR Q 15 MINUTES AND PRN FOR SAFETY
--- NOTE | 2019-10-09 20:22 | NUR ---
REFUSED SNACK BUT DID TAKE PM MEDICATIONS WITH ENCOURAGEMENT. CONTINUES TO DROOL. WORD SALAD SENTENCES. SMITH PATENT FOR MOE URINE. WILL MONITOR FOR CHANGES IN MOOD/BEHAVIOR AND MONITOR Q 15 MINUTES AND PRN FOR SAFETY
--- NOTE | 2019-10-10 05:48 | NUR ---
UP DRESSED AND READY FOR THE DAY. REMAINS CONFUSED WITH GARBLED SPEECH 24 HR chart check completed.
--- NOTE | 2019-10-10 05:49 | NUR ---
UP DRESSED AND READY FOR THE DAY. REMAINS CONFUSED WITH GARBLED SPEECH 24 HR chart check completed.
--- NOTE | 2019-10-10 07:10 | NUR ---
PHYSICAL THERAPY Patient seen this am for therapy visit and was sitting up in Quiet room Olya chair upon therapist arrival. Patient identified by name / and was very pleasant / talkative this morning. Patient is still hard to understand at times as his speech is garbled at times but was very eager to get started. Patient transfers sit to stand with MIN A, needing v/c for proper hand placement and ambulated with use of wh walker, CGA, 60'x 1, demonstrating improved stride, however Poor upright posture. Patient also demonstrated increased gait velocity and no LOB. Patient returned to his Olya chair in activity room with lap tray awaiting breakfast, under [facility] staff Supervision. Will continue per POC as tolerated, total treatment time 13 minutes. Jerrod Kaiser, CHRONIC MANAGER
--- NOTE | 2019-10-10 07:30 | NUR ---
OT NOTE Spoke w Sabrina prior to visit for confirmation pt ready to recieve therapy this date. Pt seen for 1:1 20 minute treatment w DIRECTOR OF INFORMATICS present for observation. Pt identified by name and . Upon arrival pt seated in irina chair in dinning area w lap tray in place. Returned to room and completed ADLs seated at sink w set up and Supervision, Pt demonstrated 75% followthrough of Mod verbal cues. Pt completed handwashing and followed simple commands. Pt completed grooming w simple verbal commands for sequencing. Required hand over hand assist for technique w 100% follow through while brushing his hair, Sit to stand Min A with use of w/w for UE support w poor hand placement upon rise from chair. Challanged dynamic standing tolerance 4 min w noted improved posture and no retrograde lean. At end of session pt left w wound care in irina chair in acosta way. Continue w rec D/C plan to [facility]. Jacey Centeno/ALYSSA Rivas/Nahum
--- NOTE | 2019-10-10 07:30 | NUR ---
Dressing change to left wrist per physician orders. Patient tolerate dressing changes without diffcuilty.
[2019-10-10 07:34] VITALS: BP 135/67
--- NOTE | 2019-10-10 07:56 | NUR ---
Patient feeding self breakfast in dining room with peers. Respirations easy and regular. Vital signs stable. No overt distress. NAOMI CUEVAS [facility] on unit to see pt at this time, update given.
--- NOTE | 2019-10-10 09:00 | NUR ---
Treatment plan meeting was held this a.m. with LUAN Stokes, RN, AT, AIR BRAKE TESTER-S and Miniature Set Builder. Plan for discharge Next week. Continue to work on Placement. Referrals to [facility] with no acceptance.
--- NOTE | 2019-10-10 11:21 | NUR ---
No adverse moods or behaviors noted as of this time in the shift. Pt is alert with confusion and ST/LT memory gaps noted. Resps easy and even on room air. Mood is stable, pleasantly confused. Affect flat. Speech is garbled at times. Drooling continues, pt dries mouth himself with towel, pt does not appear to be bothered by hypersalivation. Pt denies feeling sad, depressed or anxious. Pt denies SI/HI, intent or plan. Pt denies hallucinations, no response to internal stimuli noted. No paranoia or delusions noted. Med compliant without difficutly. Fed self breakfast, pt displaying good appetite with adequate fluid intake noted. No aggressive or threatening behaviors displayed as of this time in the shift. Pt currently attending group. No distress noted. Plan to continue current treatment, continue to monitor mood and behaviors, provide reorientation and redirection as needed. Continue to encourage medication compliance as well as group attendance and participation.
--- NOTE | 2019-10-10 11:37 | NUR ---
AM GROUP PT WAS PRESENT FOR MORNING GROUP THERAPY AND ATTEMPTED TO PARTICIPATE. PT WAS EASIER TO UNDERSTAND AND WAS ON TOPIC. PT SOON FELL ASLEEP. PT EXHIBITED NO ADVERSE BEHAVIORS WHILE IN GROUP
--- NOTE | 2019-10-10 12:02 | NUR ---
Observed pt sitting quietly in group this AM but not participating. Pt did not display any adverse behaviors.
--- NOTE | 2019-10-10 13:11 | NUR ---
Clinical Updates faxed to [facility].
--- NOTE | 2019-10-10 14:05 | NUR ---
GROUP A PT WAS PRESENT FOR GROUP THERAPY BUT UNABLE TO PARTICIPATE DUE TO COGNITIVE IMPAIRMENT. PT SPEECH WAS HARD TO UNDERSTAND AND PT KEPT ATTEMPTING TO STAND ON HIS OWN WITHOUT AWARENESS OF HIS SAFETY. [facility] WAS CALLED TO HELP I WAS ALONE IN THE DAYROOM WITH THE PATIENTS.
--- NOTE | 2019-10-10 14:19 | NUR ---
Pt more restless this afternoon, pt noted with response to internal stimuli, pt attempting to get up out of chair unassisted to "wrestle" an unseen knife off unseen person(s) pt is motioning to in the corner of the room. Reorientation/redirection provided. Pt sitting calmly watching TV in dining room at this time.
--- NOTE | 2019-10-10 14:41 | NUR ---
Spoke with Karly at [facility] who advised that she received the referral and updates but has been unable to review due to working on the floor as a staff nurse. She will call once she reviews. Left Message for Pao at [facility] to discuss referral.
--- NOTE | 2019-10-10 15:53 | NUR ---
GROUP B PT WAS PRESENT FOR GROUP THERAPY AND WAS BROUGHT IN THE ROOM AFTER TOILETING AND PLACED AT THE BACK OF THE ROOM. PT CALLED FOR ME AND WAS ASKING FOR SOMETHING BUT HIS SPEECH IS GARBLED AND HARD TO UNDERSTAND. I LEANED IN TO HEAR HIM AND HE GRAB MY BADGE AND PULLED THE CORD TO HIS CHEST. HE BEGAN WRAPPING THE CORD AROUND THE FINGERS ON BOTH HANDS AND I WAS CONCERNED THAT HE WOULD CUT HIMSELF. PT COULD NOT BE CONVINCED TO RELEASE THE BADGE. THE LARIET IS A BREAKAWAY BUT I DIDN'T WANT TO GIVE HIM FULL CONTROL OF THE CORD AND HAD TO POUND ON THE WINDOW GLASS TO GET HELP. IT TOOK A NURSE, MYSELF AND A SKIN CARE THERAPIST TO GET THE PATIENT TO RELEASE THE BADGE.
--- NOTE | 2019-10-10 16:45 | NUR ---
Shift chart check completed.
[2019-10-10 19:37] VITALS: BP 106/60
--- NOTE | 2019-10-10 21:54 | NUR ---
YELLING OUT FOR ATTORNY GENERAL NUMBER. WORDS PERIODICALLY SLURRED AND GARBLES. UNABLE TO HOLD A CONVERSATION OF MEANING. MEDICATION COMPLIANT WITH ENCOURAGEMENT. CONTINUES TO DROOL BUT DOESN'T APPEAR TO BOTHER HIM. WILL CONTINUE TO MONITOR FOR BEHAVIOR/MOOD CHANGES AND Q 15 MIN AND PRN FOR SAFETY
--- NOTE | 2019-10-11 02:30 | NUR ---
24 HR chart check completed.
--- NOTE | 2019-10-11 05:38 | NUR ---
NON PITTING DEPENDENT EDEMA NOTED BILAT ANKLES. DIFFICULT TIME GETTING CLIENT TO ELEVATE LEGS. HAS NOT SLEPT THIS SHIFT
--- NOTE | 2019-10-11 06:09 | NUR ---
Dressings intact to left wrist at time of assessment dressing dated for 10/10/19 as dressing not needed change at this time per physician orders.
--- NOTE | 2019-10-11 07:25 | NUR ---
PHYSICAL THERAPY Patient seen this am for therapy visit and was sitting semi reclined in activity room Olya chair upon therapist arrival. Patient identified by name / and presented with increased "drooling" from lower lip. Patient also communicated with "mumbling" speech pattern this session and transfers sit to stand MIN A. Patient ambulated with use of wh walker, CGA, 45'x 1, while demonstrating improved stride, however still several bouts of "freezing" episodes. Patient responded well to gait v/c and returned to his Olya chair in activity room awaiting breakfast under [facility] staff Supervision. Will continue per POC as tolerated, total treatment time 14 minutes. Jerrod Kaiser, CONSUMER MARKETING SPECIALIST
--- NOTE | 2019-10-11 07:34 | NUR ---
Patient eating breakfast in dining room with peers. Respirations easy and regular. Vital signs stable. No overt distress. NAOMI CUEVAS
--- NOTE | 2019-10-11 07:45 | NUR ---
OT NOTE Prior to coming to the floor spoke with nurse Bennett and reported that therapy was coming to the floor to treat this pt. Pt was seen this A.M. 1:1 for 15 minute OT session with JAVA SUPPORT ENGINEER and nursing staff present for observation only. Upon arrival pt was sitting upright in the irina chair in the dining acosta. Pt identified by name and and had no complaints at this time. Pt was taken to the hallway where he completed multiple sit to stand transfers from chair level with Manny and use of w/w for UE support. Challenged pt's static standing tolerance needed for increased I in self care tasks and functional transfers, pt was able to tolerate aprox 5 minutes at a time before sitting due to fatigue. Pt completed AROM to BUE over all planes for 1 X 10 to increase and restore maximum functional use. Pt was left sitting upright in the irina chair in the dining acosta under [facility] staff supervision. Continue with POC as able. ALYSSA Larsen/Nahum
[2019-10-11 08:00] VITALS: BP 110/58
--- NOTE | 2019-10-11 08:30 | NUR ---
Treatment Plan meeting was held this a.m. via telephone with Dr. Clay, RN, AT, GROCERY PACKER-S and Ski Production Supervisor. Plan for discharge Early next week. Pt. has been referred to [facility]. Clinical Updates were faxed to facility yesterday.
--- NOTE | 2019-10-11 08:30 | NUR ---
updated on pt progress and rounded via telehealth. Medication orders updated per MD orders from . Read back and verified.
--- NOTE | 2019-10-11 08:30 | NUR ---
Treatment Plan meeting was held this a.m. with Dr. Clay via telephone, RN, AT, KELSIE-S and Trim Operator. Plan for discharge Next week. Pt. is for placement, no placement has been secured at this time. Pt. has requested [facility] or [facility]. No Acceptance at either facility at this point. Clinical Updates were faxed to facilities yesterday. Will Follow.
--- NOTE | 2019-10-11 11:30 | NUR ---
and on unit to see pt at this time.
--- NOTE | 2019-10-11 11:55 | NUR ---
AM GROUP PT WAS PRESENT FOR MORNING GROUP THERAPY RECLINED IN A MOSHE CHAIR SLEEPING. PT DID NOT WAKE DURING GROUP
--- NOTE | 2019-10-11 12:32 | NUR ---
P- Confusion, poor sleep last night, pt napping intermittently this shift. Pleasant with this RN this AM, compliant with HOC, ambulated with therapy this AM. I- Orientation, mood and behaviors assessed. Assessed pt for SI/HI, hallucinations, paranoia and/or delusions. Medications administered as per physician's orders. Assistance with ADL care provided as needed. Encouraged pt to attend and participate in talbot milieu groups and activities. R- Pt is alert and oriented to self only, otherwise confused. ST/LT memory gaps noted. Resps easy and even on room air. Speech is soft, garbled at times per pt baseline. Mood stable, affect flat. Pt denies SI/HI, intent or plan. Pt denies hallucinations, no response to internal stimuli noted. No paranoia or delusions noted. Pt is medication compliant without difficulty. Pineda cath intact and patent draining josé colored urine. No physically aggressive or threatening behaviors displayed this shift. Pt ambulated with therapy this AM, compliant with HOC, pleasant with this RN. Pt slept poorly last night and is now napping t/o shift. Easily arousable via verbal/tactile stimuli. No distress noted. P- Plan to continue current treatment, continue to monitor mood & behaviors, provide appropriate reorientation, redirection and 1:1 as needed. Continue to encourage medication compliance as well as group attendance and participation.
--- NOTE | 2019-10-11 14:01 | NUR ---
GROUP B PT WAS PRESENT FOR GROUP THERAPY BUT IS UNABLE TO PARTICIPATE AT THIS TIME DUE TO COGNITIVE IMPAIRMENT. PT SLEPT FOR MOST OF GROUP RECLINED IN A MOSHE CHAIR.
--- NOTE | 2019-10-11 15:15 | NUR ---
Spoke with Justa at [facility]. Karly is off today and Pt. if he continues to have manageable behaviors would be appropriate for [facility]. Requests updates yani faxed to facility.
--- NOTE | 2019-10-11 15:37 | NUR ---
GROUP B PT WAS PRESENT FOR GROUP THERAPY RECLINED IN A MOSHE CHAIR SLEEPING. PT AWOKE AT THE END OF GROUP BUT IS UNABLE TO PARTICIPATE DUE TO COGNITIVE IMPAIRMENT.
[2019-10-11 19:01] VITALS: BP 100/56
--- NOTE | 2019-10-11 20:58 | NUR ---
24 HR chart check completed.
--- NOTE | 2019-10-12 02:11 | NUR ---
pATIENT REMAINS ALERT BUT CONFUSED. DIFFICULT TO UNDERSTAND. aBLE TO FOLLOWSIMPLE COMMANDS. HAS HAD NO BEHAVIORS AT THIS TIME. cURRENTLY RESTING IN BED WITH EYES CLOSED. cONTINUES TO HAVE EXCESS DROOLING. SMITH CATHETER IS PATENT AND INTACT, DRTAINING CLEAR YELLOW URINE. IS MED COMPLIANT.
--- NOTE | 2019-10-12 06:04 | NUR ---
PATIENT SLEPT MORE THAN 7 HOURS
--- NOTE | 2019-10-12 07:17 | NUR ---
Dressing change to left wrist per physician order. Patient tolerate dressing changes without diffcuilty. Call light within reach and bed in low position.
--- NOTE | 2019-10-12 07:25 | NUR ---
PHYSICAL THERAPY Patient seen this am for therapy visit and was just awakening supine in bed upon therapist arrival. Patient identified by name / and was very disoriented this morning. Patient transfers supine to sit EOB with MOD A x 2, needing a few minutes of static EOB sit to collect himself. Patient performed sit to stand SECOND WORKER/MIN x 2 and completed SPT to Olya chair, then transported to hallway for gait training. Patient ambulated with use of wh walker, MIN A, demonstrating both festinating gait pattern and bouts of "freezing" episodes, 40'x 1. Patient also needed multiple v/c's to focus on task in completing all treatment and returned to his Olya chair in activity room. Patient remained in activity room awaiting breakfast, under [facility] staff Supervision. Will continue per POC as tolerated, total treatment time 16 minutes. Jerrod Kaiser, ASSISTANT PRODUCT MANAGER
--- NOTE | 2019-10-12 07:45 | NUR ---
OT NOTE Spoke with Jessie prior to treatment for approval to treat. Pt seen this date for 1:1 15 minute OT treatment and was identified by name and . PRINTED CIRCUIT BOARD REWORKER present for obsevation only. Upon arrival pt supine in bed leaning to right side clutching bedrail w R hand. Pt assisted to EOB requiring Mod x2 for bed mobility. Noted decreased ability to follow simple commands and increased processing time needed w poor success. Pt wiped mouth w rag requiring Max verbal cues and multiple tactile cues. Pt required Max A to don shirt threading arms first then head. S/PAINT GRINDER applied gait belt prior to transfer for safety. Sit to stand required Min A x 2 and verbal prompts for attention to task/following commands. Challanged pts dynamic standing balance/tolerance to increase I. Pt tolerated 5 min w use of ww before requiring a break, throughout standing pt had two LOB to the R that required modA to correct. At end off session pt left in commomn are to eat in irina chair w staff present. Jacey Anguiano, Taryn/ALYSSA Rivas/Nahum
[2019-10-12 07:50] VITALS: BP 109/91
--- NOTE | 2019-10-12 07:51 | NUR ---
Patient eating breakfast in dining room with peers. Respirations easy and regular. Vital signs stable. No overt distress. NAOMI CUEVAS
--- NOTE | 2019-10-12 08:47 | NUR ---
Jd PMP-BC on unit to see pt at this time, update given.
--- NOTE | 2019-10-12 08:48 | NUR ---
Speech consult ordered as per Jd PMHNP-BC
--- NOTE | 2019-10-12 10:44 | NUR ---
Treatment team meeting held this AM with Divya BEAN, RN, human resources project coordinator, and KELSIE-S. Tentative discharge date is 10/15/19 if acceptance to [facility] is received.
--- NOTE | 2019-10-12 11:30 | NUR ---
AM GROUP PT DID NOT ATTEND MORNING GROUP THERAPY. PT WAS IN BED RESTING.
--- NOTE | 2019-10-12 11:58 | NUR ---
Clinical update faxed to admissions at [facility].
--- NOTE | 2019-10-12 12:02 | NUR ---
Spoke with Pao at [facility] who stated that they are unable to meet pt's needs.
--- NOTE | 2019-10-12 12:36 | NUR ---
KYRA BELTRAN CNP ON UNIT TO ASSESS PATIENT.
--- NOTE | 2019-10-12 13:09 | NUR ---
No adverse moods or behaviors this shift. Pt napping intermittently. Easily arousable via verbal/tactile stimuli. Pt medication compliant this AM without difficulty. Poor PO intakes noted yesterday and today. Jd PMHNP-BC and Brendan DIRECTOR OF GROUP COUNSELING PROGRAM aware. 1300 meds not given d/t pt drowsy. Pineda cath remains intact and patent. No aggressive or combative behaviors displayed. No distress noted. Plan to continue current treatment, continue to monitor mood and behaviors, provide appropriate reorientation, redirection and 1:1 as needed. Continue to encourage med compliance as well as group attendance and participation.
--- NOTE | 2019-10-12 13:33 | NUR ---
Phoned Karly at [facility] and was informed that pt is accepted there. Left a voicemail message for pt's Radha Morel informing her of this and also that [facility] declined patient. Further informed Radha Morel that pt is ready for discharge. Requested a return call to discuss.
--- NOTE | 2019-10-12 13:59 | NUR ---
Spoke with pt's Radha Morel. Discussed pt's acceptance to [facility]. Radha Morel stated that she will call Karly from [facility]. Informed Radha Morel that a tentative discharge for Tuesday will be planned pending confirmation after Radha Morel speaks with Karly.
--- NOTE | 2019-10-12 14:30 | NUR ---
OCCUPATIONAL THERAPY CO-SIGN I approve of the Occupational Therapy notes written above. YUE NIELSEN, OTR/L
--- NOTE | 2019-10-12 14:30 | NUR ---
SPEECH THERAPY Orders received and chart review complete. Patient has PMHx s/f metabolic encephalopathy, intermittent explosive disorder, PD, HTN, malnutrition, dementia, and history of aspiration PNA. Patient was previously seen by this department when he was recommended pureed diet with honey-thick liquids prior to being discharged d/t tolerance of diet and adherence to swallowing strategies. Patient referred for clinical bedside swallowing evaluation due to difficulty swallowing pureed diet with anterior leaking of food. Per patient's nurse and aide, patient demonstrated reduced appetite and allowed pureed food to "roll out of mouth" however he drank and tolerated honey-thick liquids well. Attempted to evaluate patient 3x this date, however patient resting and not able to be aroused to verbal and tactile stimuli. Patient's nurse reported change in medication, and reported he has been sleeping and groggy throughout the day. Patient responded to stimuli and aroused on 1 opportunity, however he did not remain alert and was not able to be aroused again. Will attempt evaluation at later time/date as appropriate. Thank you for your consultation. Yumiko Talbert MA CCC-CUSTOMER SUCCESS ASSOCIATE
--- NOTE | 2019-10-12 15:21 | NUR ---
PHYSICAL THERAPY CO-SIGN I approve of the Physical Therapy notes written above. Briana Weston PT
--- NOTE | 2019-10-12 18:02 | NUR ---
Pt continued to nap on and off throughout the shift, arousable to verbal and tactile stimuli. Pt more alert for dinner but did not eat. Pt allowing food and fluids to roll out of his mouth. Pt states he isn't hungry.
--- NOTE | 2019-10-12 18:35 | NUR ---
This RN was called to pt's room by mental health workers providing hygiene care. This RN observed skin impairment area noted to tip of penis measuring 2.0cm x 0.8cm x <0.1cm. Periwound red, wound bed dark purple/black in color with some yellow areas noted. Scant amounts of serous drainage noted when area cleansed by RN. Upon further assessment of the area, wound possibly caused by alva catheter tubing pressing against skin when incontinence brief is on. Pt does not appear to be in pain at this time. Nursing animal maintenance supervisor Aniyah notified and came to unit and assessed. notified via telephone and states a physician will come to assess for further orders. Pt's /DPOAH Frances Villa notified via telephone. Treatment plan updated, plan to no longer apply incontinence briefs when out of bed as to reduce risk of alva tubing applying pressure to skin. Cath-strip securement device applied to upper thigh to secure tubing in proper position.
--- NOTE | 2019-10-12 19:26 | NUR ---
to unit and assessed area for wound care orders.
[2019-10-12 19:46] VITALS: BP 110/90; BP 118/64
--- NOTE | 2019-10-13 02:32 | NUR ---
P-CONFUSION, AGITATION I-REDIRECTION WITH 1:1 THERAPEUTIC INTERVENTIONS AND COMMUNICATION. PRESENT REALITY. EDUCATE AND ENCOURAGE MEDICATION COMPLIANCE R-PATIENT MEDICATION NONCOMPLIANT AT HS. PATIENT PROVIDED NOURISHMENT AND FLUIDS AT HS. PATIENT WITH GARBLED, MUMBLED SPEECH. PATIENT AGITATED WITH HANDS ON CARE AND WITH ASSIST X 2. PATIENT WITH NO HALLUCINATIONS OR DELUSIONS. PATIENT WITH NO HOMICIDAL IDEATIONS AND DENIES SUICIDAL IDEATIONS AT THIS TIME. PATIENT WITH SMITH, SMITH PATENT, AND DRAINING MOE URINE. DR CARUSO ON UNIT TO ASSESS PATIENT TIP OF PENIS AT START OF SHIFT. P-CONTINUE TO ENCOURAGE MEDICATION COMPLIANCE, CONTINUE TO PRESENT REALITY ENCOURAGE GROUP THERAPY WHILE AWAKE
--- NOTE | 2019-10-13 05:41 | NUR ---
PATIENT SLEPT APPROX 6 HOURS THROUGHOUT THE NIGHT. NO DISTRESS NOTED.
[2019-10-13 08:00] VITALS: BP 100/68
--- NOTE | 2019-10-13 12:00 | NUR ---
Shift chart check completed.
--- NOTE | 2019-10-13 12:30 | NUR ---
Dara Mills CNP on floor to assess patient, update provided.
--- NOTE | 2019-10-13 13:15 | NUR ---
P- Confusion, drowsy, drooling. Poor PO intake. I- Assess mood, orientation, SI/HI, hallucinations, delusions or pain. Provide medications on time with education on each. Two assist provided with care, toileting, and transfering due to unsteady gait/confusion. 1:1 interaction, reorientation, redirection, and reassurance provided when necessary. Encourage to attend to mental health worker activities with peers. Patient noted to have a poor PO intake; Encourage and provide pt frequently with foods and fluids. Skin integrity measures provided with frequent turning and encouragement to participate. R- Remains at baseline confusion, unreceptive to reorientation. Mood labile. Drowsy and napping most of the day; Easily arousable to verbal and tactile stimuli. When giving medications, pt drooled out most of the medications. Unaware of how much of the medications pt received due to having to crush medications; Pt is a purreed diet with thickened liquids. Pt remains to have a poor PO intake even with food and fluids offered frequently. Pt remains drowsy, will not interact, and refusing to attend in activities. Pt refusing to shift weight at times with encouragement, education ineffective for patient. No s/s of interacting with internal stimuli; No paranoid or delusional thought process noted; No s/s of distress noted, resps even and unlabored on room air. P- Assess mood, orientation, SI/HI, hallucinations, delusions or pain every shift. Provide meds on time with education on each. Skin intergrity measures maintained, encourage to shift weight and assist. Educate the importance of following skin integrity measures when refusing. Two assist with toileting, transfering and care due to unsteady gait/confusion. Falling star program maintained with alarms intact/audible. Q15 minute checks maintained for safety.
--- NOTE | 2019-10-13 18:00 | NUR ---
Wound orders completed to left wrist, penile tip, and buttocks. Patient tolerated well. Skin integrity interventions maintained. Frequent turning and encouraged to do so. Q15 minute checks maintained for safety.
--- NOTE | 2019-10-13 19:00 | NUR ---
Total input for shift: 360cc ; Total output for shift: 200cc
[2019-10-13 20:00] VITALS: BP 109/66
--- NOTE | 2019-10-14 00:42 | NUR ---
P-CONFUSION, MEDICATION NONCOMPLIANCE I-REDIRECTION WITH 1:1 THERAPEUTIC INTERVENTIONS AND COMMUNICATION. PRESENT REALITY. EDUCATE AND ENCOURAGE MEDICATION COMPLIANCE R-PATIENT MEDICATION NONCOMPLIANT AT HS. PATIENT REFUSED NOURISHMENT BUT PROVIDED FLUIDS AT HS. PATIENT WITH GARBLED, MUMBLED SPEECH. PATIENT AGITATED WITH HANDS ON CARE AND WITH ASSIST X 2-3. PATIENT WITH NO HALLUCINATIONS OR DELUSIONS. PATIENT WITH NO HOMICIDAL IDEATIONS AND DENIES SUICIDAL IDEATIONS AT THIS TIME. PATIENT WITH SMITH, SMITH PATENT, AND DRAINING MOE URINE. PATIENT WITH POOR PO INTAKE P-CONTINUE TO ENCOURAGE MEDICATION COMPLIANCE, CONTINUE TO PRESENT REALITY ENCOURAGE GROUP THERAPY WHILE AWAKE
--- NOTE | 2019-10-14 01:04 | NUR ---
P-CONFUSION, MEDICATION NONCOMPLIANCE I-REDIRECTION WITH 1:1 THERAPEUTIC INTERVENTIONS AND COMMUNICATION. PRESENT REALITY. EDUCATE AND ENCOURAGE MEDICATION COMPLIANCE R-PATIENT MEDICATION NONCOMPLIANT AT HS. PATIENT REFUSED NOURISHMENT BUT PROVIDED FLUIDS AT HS. PATIENT AGITATED WITH HANDS ON CARE AND WITH ASSIST X 2-3 TO PROVIDE CARE. PATIENT WITH NO HALLUCINATIONS OR DELUSIONS. PATIENT WITH NO HOMICIDAL IDEATIONS AND DENIES SUICIDAL IDEATIONS AT THIS TIME. PATIENT WITH ABNORMAL INVOLUNTARY MOVEMENTS ALL OVER BODY. P-CONTINUE TO ENCOURAGE MEDICATION COMPLIANCE, CONTINUE TO PRESENT REALITY ENCOURAGE GROUP THERAPY WHILE AWAKE
[2019-10-14 06:29] LABS: BASO % 0.2 % (0.0-1.0); EOS # 0.1 10*3/uL (0.0-0.4); EOS % 0.8 % (1.0-4.0); HEMATOCRIT 43.4 % (42.0-52.0); LYMPH # 0.8 10*3/uL (1.3-4.4); LYMPH % 8.7 % (27.0-41.0); MEAN CELL VOLUME 92.5 fl (80.0-94.0); MEAN CORPUSCULAR HGB 28.8 pg (27.0-31.0); MEAN CORPUSCULAR HGB CONC 31.1 g/dl (33.0-37.0); MEAN PLATELET VOLUME 11.7 fl (9.6-12.3); MONO # 0.4 10*3/uL (0.1-1.0); MONO % 4.7 % (3.0-9.0); NEUT # 7.6 10*3/uL (2.3-7.9); NEUT % 85.3 % (47.0-73.0); PLATELET COUNT AUTOMATED 148 10*3/uL (130-400); RED BLOOD COUNT 4.69 10*6/uL (4.50-5.90); RED CELL DISTRI WIDTH 14.6 % (0-14.5); WHITE BLOOD COUNT 8.9 10*3/uL (4.8-10.8)
--- NOTE | 2019-10-14 06:32 | NUR ---
PATIENT SLEPT APPROX 6 HOURS UNINTERRUPTED THROUGHOUT THE NIGHT. NO DISTRESS NOTED.
[2019-10-14 08:00] VITALS: BP 135/78
--- NOTE | 2019-10-14 08:00 | NUR ---
Patient feeding self breakfast in dining room. Respirations easy and regular. Vital signs stable. No overt distress. NAOMI CUEVAS
--- NOTE | 2019-10-14 10:00 | NUR ---
Brendan TELECOMMUNICATIONS OFFICER on unit to see pt at this time, pt reporting upset stomach. TELECOMMUNICATIONS OFFICER states she will enter new orders for Zofran.
--- NOTE | 2019-10-14 12:34 | NUR ---
Pt given PRN Zofran 4mg SL at this time for c/o stomach upset. No emesis. Pt refused lunch stated "I'm not hungry". Pt pushed tray away. Will monitor for effectiveness.
--- NOTE | 2019-10-14 13:08 | NUR ---
PRN MOM 30mL PO given at this time for relief of constipation. Will monitor for effect.
--- NOTE | 2019-10-14 13:30 | NUR ---
Ann-Mariean effective. Pt states he "feels good".
--- NOTE | 2019-10-14 18:22 | NUR ---
P- Confusion, medication noncomplaince, poor PO intakes, slight irritability I- Orientation, mood and behaviors assessed. Assessed pt for SI/HI, hallucinations, paranoia and/or delusions. Medications administered as per physician's orders. Assistance with ADL care provided as needed. Encouraged pt to attend and participate in talbot milieu groups and activities. Turn/repositioning maintained. Seat cushion in use when OOB. Intakes encouraged. R- Pt is alert and oriented to person only, otherwise confused. Pt believes he is "at the law office". Pt awake and alert throughout the shift. Talkative. ST/LT memory gaps noted. Resps easy and even on room air. Mood slightly irritable, affect flat. Speech is garbled per baseline. Pt refused AM medications, pushed RN's hand with medications away. Pt states "Call the law! Can't you see this mess your has gotten us into?!" Redirection ineffective at this time. Pt reapproached later with medications x2 but continues to refuse. Pt denies SI/HI, intent or plan. Pt denies hallucinations, no response to internal stimuli noted. No paranoia or delusions noted. Pt took 1300 and 1700 medications without difficulty. Pt continues with poor PO intakes, pt fed self 25% of breakfast and drank health shake but has refused lunch and spit out dinner when staff attempted to assist pt with feeding. Pineda cath intact and patent, no brief, cath-strip securement device in place, seat cushion and heel boots used. Not physically combative this shift. No distress noted. P- Plan to continue current treatment, continue to monitor mood and behaviors, provide appropriate reorientation, redirection and 1:1 as needed. Continue to encourage medication compliance as well as group attendance and particiation. Continue q2h repositioning, continue to encourage PO intake.
[2019-10-14 19:52] VITALS: BP 142/76
--- NOTE | 2019-10-15 01:14 | NUR ---
P-CONFUSION, MEDICATION NONCOMPLIANCE I-REDIRECTION WITH 1:1 THERAPEUTIC INTERVENTIONS AND COMMUNICATION. PRESENT REALITY. EDUCATE AND ENCOURAGE MEDICATION COMPLIANCE R-PATIENT MEDICATION NONCOMPLIANT AT HS. PATIENT REFUSED NOURISHMENT BUT PROVIDED FLUIDS AT HS. PATIENT WITH GARBLED, MUMBLED SPEECH. PATIENT AGITATED WITH HANDS ON CARE AND WITH ASSIST X 2-3. PATIENT WITH NO HALLUCINATIONS OR DELUSIONS. PATIENT WITH NO HOMICIDAL IDEATIONS AND DENIES SUICIDAL IDEATIONS AT THIS TIME. PATIENT WITH SIMTH, SMITH PATENT, AND DRAINING MOE URINE. PATIENT WITH POOR PO INTAKE P-CONTINUE TO ENCOURAGE MEDICATION COMPLIANCE, CONTINUE TO PRESENT REALITY, ENCOURAGE GROUP THERAPY WHILE AWAKE
--- NOTE | 2019-10-15 05:42 | NUR ---
PT SLEPT 4.5 HOURS
--- NOTE | 2019-10-15 06:54 | NUR ---
THOMPSON MARSHALL [id number] Please refer to the physician's history and physical for past medical history, comorbid conditions, and allergies. Diagnosis: INTERMITTENT EXPLOSIVE DISORDER Giancarlo Score: 14,MODERATE RISK WOUND DESCRIPTIONS: Wound Number: 1 Left wrist no open areas at time of assessment. Area is pink and blanchable scar tissue noted. No drainage noted at time of assessment. Wound Number: 2 Location of the wound: right hand no open areas at time of assessment. Area is pink and blanchavle scar tissue noted. No drainage noted at time of assessment. Wound Number:3 Left buttocks and Wound Number:4 Right buttocks not assessed at this time due to patient in [facility] ready for lunch. These areas were pink and blanchable last time of assessment. No open areas noted at time of assessment. No drainage noted at time of assessment. Wheelchair cushion in use at time of assessment to [facility]. Wound Number: 5 Location of the wound: left wrist Type of wound: skin tear Thickness: Partial Size: 0.5cm x 0.1cm x 0.1cm Tunneling: none Undermining: none Sinus Tract: none Presence of Exudate: none Amount: none Color: Red Odor: None Periwound Skin Appearance: Normal Wound edges: approximated Pain (associated with wound): none at time of assessment How does patient state this happened? pt unable to state how this happened Wound Number: 6 Location of the wound: penis Type of wound: medical diagnostic radiographer related pressure injury ( mucosal membrane pressure injury) Size: 3.2cm x 1.4cm x 0.1cm Tunneling: none Undermining: none Sinus Tract: none Presence of Exudate: Purulent Amount: Light Color: Black, purple, yellow, red Odor: Musty Periwound Skin Appearance: Erythema Wound edges: approximated Pain (associated with wound): tender at time of assessment How does patient state this happened? pt unable to state how this happened Surface the patient is resting on: Proform SKIN PREVENTION RECOMMENDATION: 1. Pressure redistribution support surface as appropriate 2. Elevate heels 3. Remove boots/TEDS every shift and reapply 4. Head of bed 30 degrees as tolerated 5. Assess nutrition and hydration 6. Manage moisture 7. Avoid the use of containment devices while in bed 8. Use absorptive products on surfaces limit layers of linens on bed 9. Turn and reposition every 1-2 hours in bed and every 1 hour in chair as tolerated 10. Weight shifts every 15 minutes while up in chair 11. Offloading with pillows or device to keep heels elevated off bed 12. Monitor skin at least every shift 13. Inspect under medical devices twice a day WOUND TREATMENT RECOMMENDATIONS: d/C stage 2 guidelines to penile head Cleanse tip of penis with soap and water pat area dry then apply bactroban ointment bid and leave open to air Cleanse area around wound to penis with soap and water pat areas dryh tne apply nystatin powder every [address] Carlos for area to penis. Continue wheelchair cushion when obb. Continue heel raiser pro boots to bilateral feet. Continue hydraguard to left and right buttocks. Continue skin tear guidelines to left wrist.
--- NOTE | 2019-10-15 07:40 | NUR ---
PHYSICAL THERAPY Patient seen this am for therapy visit and was sitting semi reclined in activity room Olya chair upon therapist arrival. Patient identified by this morning by name / and presented with mild lower lip "drooling" episode. Patient was alert, but "sluggish", however able to follow all therapist commands this treatment. Patient transfers sit to stand MIN A, use of wh walker standing support and ambulates MIN/ CGA, 40'x 1, wh walker, demonstrating slow joaquim, NBOS, decreased stride and several bouts of "freezing" episodes, requiring v/c to stop / start. Patient completed all treatment voicing no new c/o's and returned to his Olya chair with lap tray, body alarm, under [facility] staff Supervision. Will continue per POC as tolerated, total treatment time 14 minutes. Jerrod Kaiser, FREIGHT AGENT
--- NOTE | 2019-10-15 07:44 | NUR ---
Patient awake and alert. Walking with therapy. Pt being assisted to dining room for breakfast at this time. Respirations easy and regular. Vital signs stable. No overt distress. NAOMI CUEVAS
--- NOTE | 2019-10-15 07:45 | NUR ---
OT NOTE Spoke magno Costa prior to session to approve therapy session. Pt seen for 1:1 therapy treatment this date for 15 min and was identified by name and . DIRECTOR WEB present for observation only. Upon arrival pt in dinning room seated in irina chair w lap tray in place and chair alarm activated. Pt completed AROM of BUE in all planes with good command follow. Pt transported to designated bathroom where he washed his face seated at sink requiring Setup and simple verbal command for initiation. Pt completed sit to stand requiring Min A and use of ww. Pts dynamic stand balance challanged in order to increase I for ADLs requiring Min A for balance and ww. At end of session pt returned to dinning room in irina chair w lap tray in place and chair alarm activated. Continue w recommended D/C to INTERMEDIATE. Taryn Rogers/ALYSSA Rivas/Nahum
[2019-10-15 07:57] VITALS: BP 100/64
--- NOTE | 2019-10-15 08:30 | NUR ---
Treatment Plan meeting was held this a.m. with Dr. Clay, LUAN Stokes, RN, AT, SHELL REPRINT OPERATOR-S and Agricultural Technician. Plan for discharge today if possible. Will reach out to [place] to discuss discharge Planning.
--- NOTE | 2019-10-15 08:44 | NUR ---
Dara LAW notified of wound care recommendations.
--- NOTE | 2019-10-15 08:49 | NUR ---
PHYSICAL THERAPY Nursing screen received. Patient is currently on PT caseload. Will continue to follow. Thank you. Karly Long,PT,DPT
--- NOTE | 2019-10-15 08:52 | NUR ---
notified of consult for wound to penile head. States he will come and see pt today.
--- NOTE | 2019-10-15 09:24 | NUR ---
Nursing screen received. Patient is currently on OT caseload. Will continue to follow. Thank you. Lachelle Barnett OTR/L
--- NOTE | 2019-10-15 09:29 | NUR ---
Spoke with Karly Lopez in admissions at [facility]. Pt. is accepted and requires a second Covid Negative Swab prior to admit. Notified Nursing Staff. Pt. is unable to discharge today. Clinical Updates faxed to [place]' Attn: Karly [phone].
--- NOTE | 2019-10-15 10:33 | NUR ---
COVID19 nasopharyngeal swab test obtained at this time by KARINA pt tolerated well.
--- NOTE | 2019-10-15 11:43 | NUR ---
Spoke with pt's Radha Morel earlier this AM to discuss discharge. Pt has been accepted to [facility] but Radha Morel expressed concern because there are residents there that are COVID positive. Empathized with Radha Morel and offered to reach out to [facility] to reconsider pt. Radha Morel voiced appreciation for this. Radha Livingston, mission planner, confirmed with Arielle at [facility] that currently there are no male beds available. This typewriter ribbon winder phone Radha Maria Teresa an informed her of this. Per Radha Morel, she approves of pt discharging to [facility]. Support provided to Radha Maria Teresa as she was tearful.
--- NOTE | 2019-10-15 12:42 | NUR ---
on unit to see pt at this time for peline wound. assessed, states no need for debridement, states to continue Bactroban. Recontact should wound worsen.
--- NOTE | 2019-10-15 15:41 | NUR ---
GROUP A AND B COMBINED PT DID NOT ATTEND GROUP THERAPY TODAY. PT WAS IN THE HALLWAY FOR OBSERVATION. PT IS UNABLE TO PARTICIPATE AT THIS TIME DUE TO COGNITIVE IMPAIRMENT.
--- NOTE | 2019-10-15 17:04 | NUR ---
SPEECH PATHOLOGY Patient 73 year old male seen for attempted bedside swallow evaluation. Patient currently on diet of pureed foods and honey thick liquids. Patient referred for evaluation due to not swallowing pureed foods and allowing food to "roll out of mouth". Nurse stated that patient is tolerating honey thick liquids well. Patient was noncompliant to evaluation and was not oriented to place, time, or self. Reattempt at evaluation will take place at later time/date as seen appropriate. Continue current diet until evaluation. Nurse notified and verbalized understanding. Krystina Guerrero M.S., CCC-GLASS NOVELTY MAKER
--- NOTE | 2019-10-15 17:32 | NUR ---
DAYLIGHT SKIN ASSESSMENT 10/15/19 Completed by this RN and 2nd RN YANAG: Pt observed with various small intact scabbed areas to face from shaving. Optifoam dressing clean, dry and intact dated 10/15/19 to be changed tomorrow per physician's orders in place to left hand. Buttocks/coccyx pink, intact and blanchable. Cleansed and hydrguard applied per physician's orders. Groin red and excoriated, musty odor noted. Cleansed and Nystatin powder applied. Previously identified open area noted to penile head measuring approx 2.8cm x 0.8cm x <0.1cm. Difficult to obtain exact measurements as pt not laying still. There is a small area within this open area that is black in color at the entrance of the alva catheter to the penis. The remaining open area is red and yellow in color. Area cleansed with soap and water, bactroban applied per orders. Alva catheter remains intact and patent, secured to upper thigh with cath-strip device. Small scratch shaped intact scab to outer left ankle. Small intact scabs noted to left quiroz.
--- NOTE | 2019-10-15 18:26 | NUR ---
P- Confused, medication noncompliant I- Orientation, mood and behaviors assessed. Assessed for SI/HI, hallucinations, paranoia and/or delusions. Medications administered as per orders. Assistance with ADL care provided as needed. Encouraged pt to attend and participate in talbot milieu groups and activities. R- Pt is alert with confused. Oriented to name only. Memory gaps noted. Resps easy and even on room air. Mood irritable at times. Affect flat. Speech remains garbled per baseline. Drooling continues. Pt medication noncompliant this date, has spit out all medications today. No voiced SI/HI, hallucinations, paranoia or delusions noted. Pt resists hands on care but not overtly physically aggressive. Able to redirect. Pt continues with little food intake, appears to be displeased with pureed texture but refused to cooperate with speech therapy assessment today. Pt taking honey thick fluids well. Drinking Ensures with each meal. No distress noted. P- Plan to continue current treatment, Contniue to monitor mood and behaviors. Provide appropriate reorientation, redirection and 1:1 as needed. Continue to encourage medication compliance as well as group attendance and participation.
[2019-10-15 20:00] VITALS: BP 131/71
--- NOTE | 2019-10-15 23:39 | NUR ---
P-CONFUSION, MEDICATION NONCOMPLIANCE I-REDIRECTION WITH 1:1 THERAPEUTIC INTERVENTIONS AND COMMUNICATION. PRESENT REALITY. EDUCATE AND ENCOURAGE MEDICATION COMPLIANCE R-PATIENT MEDICATION NONCOMPLIANT AT HS. PATIENT REFUSED NOURISHMENT BUT PROVIDED FLUIDS AT HS. PATIENT WITH GARBLED, MUMBLED SPEECH. PATIENT AGITATED WITH HANDS ON CARE AND WITH ASSIST X 2-3. PATIENT WITH NO HALLUCINATIONS OR DELUSIONS. PATIENT WITH NO HOMICIDAL IDEATIONS AND DENIES SUICIDAL IDEATIONS AT THIS TIME. PATIENT WITH SMITH, SMITH PATENT, AND DRAINING MOE URINE. CATHETER STRAP INTACT AND SMITH CATHETER CARE PROVIDED. PATIENT WITH POOR PO INTAKE. BACTROBAN AND NYSTOP POWDER APPLIED PER ORDER. P-CONTINUE TO ENCOURAGE MEDICATION COMPLIANCE, CONTINUE TO PRESENT REALITY, ENCOURAGE GROUP THERAPY WHILE AWAKE
--- NOTE | 2019-10-16 05:21 | NUR ---
PATIENT SLEPT 2 HOURS OF INTERRUPTED SLEEP THROUGHTOUT SHIFT. Q 15 MINUTE CHECKS MAINTAINED. 24 HR chart check completed.
--- NOTE | 2019-10-16 07:10 | NUR ---
PHYSICAL THERAPY Patient seen this am for therapy visit and was sitting up in activity room Olya chair upon therapist arrival. Patient identified by name / and presented with increased lower lip "drooling" episode. Patient was able to follow simple commands, however very hard to understand verbal responses due to "mumling" tone of voice. Patient transfers sit to stand MOD A, at handrail demonstrating increased "slouched" standing posture and needed v/c to stand tall with head up, tolerating 30-45 seconds static stand each trial. Patient also ambulated with use of wh walker, Min A, demonstrating NBOS and several bouts of "scissoring" gait pattern, 30'x 1. Patient very unsteady this session during all standing activities and returned to his Olya chair in activity room awaiting breakfast, with lap tray/ body alarm for safety, under [facility] staff Supervision. Will continue per POC as tolerated, total treatment time 15 minutes. Jerrod Kaiser, FIRE LOSS PREVENTION ENGINEER
--- NOTE | 2019-10-16 07:25 | NUR ---
OT NOTE Prior to treatment spoke with Julissa to notify therapy was coming for 15 min 1:1 treatment. Pt identified by name and . SCIENTIFIC DATABASE CURATOR present for observation only. Upon arrival pt seated in irina chair w lap tray and body alarm in dining room. Pt presented w right side lean over edge of chair. Pt taken into hallway required Max verbal cues for AROM of UE with 50% success. Pt unable to cross midline w RUE this date d/t R lateral lean. Pt completed sit <> stand x2 using hand rail in acosta to help pull himself up requiring Mod A for the first stand and Min A for the second. Pt able to stand for 1 min period x2 w CGA for balance and 1 minor LOB due to narrow base of support requiring MIN A to correct. Pts dynamic standing balance challanged in order to increase I with ADLs and functional mobility requiring Min A and Mod verbal cues w fair success. Pt transported to bathroom in irina chair to complete hand washing requiring Max verbal cues and Mod tactile cues w poor success. Pt was repositioned in irina chair to promote proper posture and returned to dining room w lap tray and body alarm activated and [facility] staff present. Continue w recommended D/C plan to [place]. Taryn Rogers/ALYSSA Rivas/Nahum
[2019-10-16 07:51] VITALS: BP 132/64
--- NOTE | 2019-10-16 07:57 | NUR ---
Patient sitting in dining room in gerichair, eating breakfast. No s/s of distress noted, resps even and unlabored on room air. Encouraging patient to shift weight frequently. Falling star program maintained with alarms intact. Q15 minute checks maintained for safety.
--- NOTE | 2019-10-16 08:39 | NUR ---
Patient drooled out most of medications, unsure how much of morning medications patient consumed at this time.
--- NOTE | 2019-10-16 09:00 | NUR ---
KYRA BELTRAN CNP ON UNIT TO ASSESS PT
--- NOTE | 2019-10-16 10:46 | NUR ---
DAYLIGHT SKIN ASSESSMENT 10/16/19 Completed by this RN and 2nd RN [email or web address]: Pt observed with various small intact scabbed areas to face from shaving. Optifoam dressing clean, dry and intact dated 10/15/19 to be changed tomorrow 10/17/19 per physician's orders in place to left hand. Buttocks/coccyx pink, intact and blanchable. Cleansed and hydrguard applied per physician's orders. Groin red and excoriated, musty odor noted. Cleansed and Nystatin powder applied. Previously identified open area noted to penile head measuring approx 2.8cm x 0.8cm x <0.1cm. Difficult to obtain exact measurements as pt not laying still. There is a small area within this open area that is black in color at the entrance of the alva catheter to the penis. The remaining open area is red and yellow in color. Area cleansed with soap and water, bactroban applied per orders. Alva catheter remains intact and patent, secured to upper thigh with cath-strip device. Small scratch shaped intact scab to outer left ankle. Small intact scabs noted to left quiroz.
--- NOTE | 2019-10-16 11:06 | NUR ---
Treatment Plan meeting was held this a.m. with Dr. Obed Rich via telephone, RN, AT, KELSIE-S and funeral planner in attendance. Plan for discharge when covid swab returns with negative results to [facility].
--- NOTE | 2019-10-16 11:43 | NUR ---
AM GROUP PT DID NOT ATTEND MORNING GROUP THERAPY. PT WAS IN BED RESTING.
--- NOTE | 2019-10-16 12:00 | NUR ---
Shift chart check completed.
--- NOTE | 2019-10-16 12:00 | NUR ---
Patient refused 1200 and 1300 scheduled medications. Patient resting with eyes closed, easily arousable to verbal and tactile stimuli. Resps even and unlabored on room air; no s/s of distress. Education and encouragement ineffective. Q15 minute checks maintained for safety.
--- NOTE | 2019-10-16 12:46 | NUR ---
Copy of PASRR faxed to [place] Along with Updated Progress notes.
--- NOTE | 2019-10-16 14:04 | NUR ---
Speech Pathology Reattempt at speech evaluation took place this date, as patient refused evaluation on 10/15/19. Patient sleeping during trial. Will try again at later time/date as seen appropriate. Krystina Guerrero M.S., CCC-TOOLMAKER GRADE THREE
--- NOTE | 2019-10-16 14:51 | NUR ---
Speech Therapy Bedside swallow evaluation attempted afternoon of 10/16/19. Patient in deep sleep and not able to participate in evaluation. Will try to complete assessment at later time/date as seen appropriate. Continue current diet of puree consistency foods with honey thick liquids until evaluation. Krystina Guerrero M.S., CCC-EXTRACTOR PULLER
--- NOTE | 2019-10-16 15:33 | NUR ---
Covid Testing Results faxed to [facility] Attn: Karly.
--- NOTE | 2019-10-16 16:25 | NUR ---
30cc of clear yelllow urine collected via alva for UA C&S; no strong odor noted. Sent to lab at this time.
--- NOTE | 2019-10-16 16:35 | NUR ---
P- Confusion, Medication noncompliance, Poor PO intake I- Assess mood, orientation, SI/HI, hallucinations, delusions, or pain. Provide medications on time with education on each. Educate and encourage on medication compliance. Encourage and provide food and fluids frequently. Two assist with toileting, transfering, care, and ADLs. Skin integrity measures inplace, assist/encourage frequent turning, and keep inplace wound care/skin care interventions/physician orders. Alarms audible and intact. R- Patient is cooperative and pleasant with HOC and interacton. When interacting with patient and asking interveiw questions, pt made moaning sounds. Only audible words that was able to understand was "Yeah". Patients tongue remains protruding out, drooling, and all medications were drooled out. Patient remains noncompliant with medications. No s/s of interacting with internal stimuli. No s/s of paranoid or delusional thought process noted. No s/s of distress noted; resps even and unlabored on room air. Pt remains to have a Poor PO intake even with encouragement and education provided. Pineda intact and patent, clear yellow urine noted in bag. Claudine care provided per physician orders. Pt's gait is unsteady and requires two assist with transfering, care, ADLs, and toileting. Pt utilizng gerichair with seat cushion intact. 1:1 interaction ineffective. P- Assess mood, orientation, SI/HI, hallucinations, delusions, or pain. Provide meds on time, encourage/educate on medication compliance. Provide 1:1 interactoin, reassurance when needed. Provide food and fluids often. Encourage to attend/participate in group therapies. Two assist with toileting, care, ADLs, and tranfering due to unsteady gait. Skin integrity measures/interventions/orders provided frequently and daily. Falling star program maintained with alarms intact. Q15 minute checks maintained for safety.
[2019-10-16 16:59] LABS: BILIRUBIN NEGATIVE (NEGATIVE); BLOOD TRACE-LYSED (NEGATIVE); CLARITY CLEAR (CLEAR); COLOR YELLOW (YELLOW); GLUCOSE NEGATIVE (NEGATIVE); KETONE 1+ (NEGATIVE); LEUKO ESTERASE NEGATIVE (NEGATIVE); NITRITE NEGATIVE (NEGATIVE); UROBILINOGEN 0.2 E.U./dl (0.2-1.0)
[2019-10-16 17:00] LABS: BACTERIA 1+; MUCOUS TRACE
--- NOTE | 2019-10-16 18:48 | NUR ---
Total Input for shift: 300cc ; Total Output for shift: 230cc via alva.
[2019-10-16 19:59] VITALS: BP 123/60
--- NOTE | 2019-10-16 21:10 | NUR ---
P-CONFUSION, MED-NONCOMPLIANCE I-PROVIDE 1:1 WITH THERAPEUTIC INTERVENTIONS. PRESENT REALITY AND REORIENT. ENCOURAGE MEDICATION COMPLIANCE AND EDUCATE. MONITOR SLEEP. R-PATIENT ALERT TO SELF, CONFUSED PER BASELINE. PT CONTINUES TO REFUSE HS MEDICATIONS DESPITE MULTIPLE ATTEMPTS, UNABLE TO EDUCATE DUE TO COGNITION. PT OTHER [place] CALM, COMPLIANT WITH HOC. ALL NEEDS ANTICIPATED BY STAFF. NO COMBATIVE BEHAVIORS NOTED. PT VOICES NO SI/HI, HALLUCINATIONS, OR PAIN. NO NOTED RESPONDING TO INTERNAL STIMULI. APPETITE REMAINS POOR, ATE 50% OF SNACK. FLUIDS ENCOURAGED. PT X2 ASSIST, INCONTINENT OF BOWEL AND BLADDER. PT CURRENTLY LAYING DOWN WITH EYES CLOSED, RESPIRATIONS EASY AND REGULAR, NO DISTRESS NOTED. P-CONTINUE TO MONITOR MOOD AND BEHAVIORS. ATTEND TO ALL PHYSICAL NEEDS. MAINTAIN Q 15 MIN CHECKS AND PRN FOR SAFETY.
--- NOTE | 2019-10-17 01:09 | NUR ---
24 HOUR CHART CHECK COMPLETE
--- NOTE | 2019-10-17 05:57 | NUR ---
SLEPT 2 HOURS THIS PAST SHIFT.
--- NOTE | 2019-10-17 07:20 | NUR ---
OT NOTE Prior to session spoke magno Gaines to report therapy was coming for 15 min 1:1 session. IMPORT CUSTOMER SERVICE MANAGER present for observation only. Upon arrival pt seated in irina chair in dining room w body alarm activated and lap tray in place and presented L side lateral lean. Pt identified by name and . Prior to starting tasks pt required modA to correct L lateral lean and sit upright in the chair. Pt was wheeled into hallway where he participated in reaching and crossing midline w BUE requiring Mod verbal and tactile cues w 60% followthrough. Pt then completed hand washing requiring Setup and Max A w Max verbal cues and poor follow through. Pt completed sit to stand requirind Min A and two verbal cues for hand placement on walker once standing and to correct poor posture. Pts dynamic standing tolerance challenged to increase I w ADLs and functional mobility requiring Min A for balance and noted quick fatigue. Pt returned to seated in irina chair w Min A, throughout entire session pt required constant verbal prompts for attention to task. Pt was returned to dining acosta in irina chair w body alarm activated and lap tray in place. Continue w current D/C plan to [facility]. Taryn Rogers/ALYSSA Rivas/Nahum
--- NOTE | 2019-10-17 07:25 | NUR ---
PHYSICAL THERAPY Patient seen this am for therapy visit and was sitting semi reclined in activity room Olya chair upon therapist arrival. Patient identified by name / and needed multiple v/c's to focus on task this session. Patient still demonstrates constant bouts of lower lip "drooling" and transfers sit to stand MIN A x 1. Patient ambulates with use of wh walker, CGA, 40'x 1, demonstrating initial retrograde posture, however once increased stride was able to correct. Patient also demonstrated bouts of festinating gait pattern, including several "freezing" episodes, requiring v/c to improve safe gait step sequence. Patient returned to Olya chair in activity room with lap tray and body alarm awaiting breakfast, under [facility] staff Supervision. Will continue per POC as tolerated, total treatemnt time 14 minutes. Jerrod Kaiser, SUBSTATION INSPECTOR
[2019-10-17 07:41] VITALS: BP 106/68
--- NOTE | 2019-10-17 07:58 | NUR ---
SPOKE WITH KYRA BELTRAN NP RE: PT DC FOR TODAY AND MEDICAL MEDS NEEDING COMPLETED.
--- NOTE | 2019-10-17 08:00 | NUR ---
Patient sitting in the dining room in formerly named [facility] with breakfast in front of him. No voiced complaints at this time. Encouraging patient to shift weight frequently. Skin integrity interventions maintained and intact. Falling star program maintained with alarms audible/intact. Q15 minute safety checks maintained.
--- NOTE | 2019-10-17 08:27 | NUR ---
Patient refused all PO medications. Patient spit them all out in his lap. Education, encouragement, and reapproach ineffective.
--- NOTE | 2019-10-17 08:30 | NUR ---
Treatment Plan meeting was held this a.m. with Dr. Obed Rich Via telephone, RN, AT, KELSIE-Taryn and treatment plant operator in attendance. Plan for discharge today. Pt. is accepted at [facility]. Transportation arranged with [facility] to transport with quill picking machine operator time 1:00 p.m.
[2019-10-17] MEDS ORDERED: CLOZAPINE100 MG PO (09:29)
[2019-10-17] MEDS ORDERED: CLOZAPINE25 MG PO ×2 (09:29)
[2019-10-17] MEDS ORDERED: TRIHEXYPHENIDYL2 M3 PO (09:58)
--- NOTE | 2019-10-17 11:00 | NUR ---
P- Confusion, Noncompliance with medications, Poor PO inake. I- Assess mood, orientation, SI/HI, hallucinations, delusions, or pain. Provide medications on time with education on each. Encourage medication compliance. Reorient patient frequently with confusion. 1:1 therapeutic interaction, reassurance, and redirection provided. Skin integrity interventions, heel boots, seat cushion, and frequent turning provided/assisted with. Falling star program with alarms intact/audible. Encourage/Provide food and fluids, provide education, assist with meals. Two assist with transfer, toileting, ADLs, and care. R- Patient is nonsensical at times with interview questions, unable to assess due to cognition. Appropriate responses at times to yes or no questions. Unreceptive to reorientation. Mood calm and cooperative. Pt continues to refuse medications. Pt spit out medications in his lap. Pt eating a few bites of food and then will not eat anymore, takes sips of fluids that are provided. . 1:1, education, assistance, reassurance, and redirection ineffective. No s/s of interacting with internal stimuli. No paranoid or delusional thought process noted. No s/s of distress noted; resps even and unlabored on room air. Pineda intact and patent, clear yellow urine noted. Patient unable to ambulate independently, two assist provided for all care. Cooperative with hands on care. Compliant with skin integrity interventions and falling star program. P- Assess mood, orientation, SI/HI, hallucinations, delusions or pain. Provide meds on time wth education on each and encourage med compliance. Provide and encourage PO intake. Two assist with all hands on care provided. Reorient frequently with confusion. Skin integrity inverventions maintained. Falling star program maintained with alarms intact/audible. Q15 minute checks maintained for safety.
[2019-10-17] MEDS ORDERED: Bactroban Oint22 GM T (11:18)
--- NOTE | 2019-10-17 11:30 | NUR ---
Discharge Paperwork faxed to [facility]. is aware of discharge and molded goods spot picker time.
--- NOTE | 2019-10-17 11:34 | NUR ---
AM GROUP PT WAS PRESENT FOR MORNING GROUP THERAPY BUT IS UNABLE TO PARTICIPATE AT THIS TIME DUE TO COGNITIVE IMPAIRMENT. PT SAT AND MUMBLED TO HIMSELF BUT WAS CALM. PT EXHIBITED NO ADVERSE BEHAVIORS WHILE IN GROUP.
--- NOTE | 2019-10-17 11:49 | NUR ---
Spoke with pt's Radha Morel and notified her that pt would be discharging today. Provided pt update to her.
--- NOTE | 2019-10-17 11:52 | NUR ---
Patient is discharging today to [facility] [place]. Follow-up will be with Dr Clay, visiting psychiatrist. While at [facility], pt's behaviors improved. Pt is no longer aggressive or combative. Pt did participate as he was able in the programming.
--- NOTE | 2019-10-17 12:00 | NUR ---
Shift chart check completed.
--- NOTE | 2019-10-17 12:30 | NUR ---
Patient given a complete bed bath at this time. Left and Right buttocks cleansed with soap and water and applied hydraguard per orders. Left wrist cleansed with normal saline, hydrogel applied, and covered with optifoam per orders. Tip of penis cleansed with soap and water, bactroban and nystatin applied, and left open to air per orders. No new open areas or skin issues noted at this time. Patient still has: small scattered intact scabbed areas to face from shaving, buttocks/coccyx and groin erythmic and blanchable, small area on the penile tip entrance of alva catheter black and yellow in color, small scratch intacct scab to outer left ankle and left quiroz. Alva catheter remains intact and patent with clear yellow urine noted , secured to upper left thigh with cath-strip device.
--- NOTE | 2019-10-17 12:39 | NUR ---
Nurse to Nurse report given to Karly DAILY at [facility] at [phone]. [facility]er to [facility] Transfer sheet in patient records that was reviewed with Karly DAILY. Went over patients 6 wounds and the wound care orders currently being done. Informed on follow up with urology Dr. Coronel in [place], [place]. Noted that patient's Nuplazid is brought in by patients , DPOA.
--- NOTE | 2019-10-17 12:58 | NUR ---
SPEECH THERAPY Patient seen for bedside swallowing evaluation due to history of dysphagia. Chart review complete with medical history previously listed. Patient presents with poor oral motor control and coordination. He had wet, productive baseline cough, with anterior loss of saliva observed consistently throughout assessment. Upon arrival, patient had pudding and unthickened ensure on his tray. Ensure was thickened to recommended honey-like thickness and then adminstered to patient with clinician assistance via straw. He demonstrated difficulty consuming liquid via straw, however he was able to obtain small sips. Poor labial seal observed during trials of pudding, however patient also shook head no, appearing to indicate he did not wish to have anymore pudding. Patient attempting to talk throughout evaluation, however his intelligibility was severely impaired and limited. Nursing staff reports patient is to be discharged this afternoon. Recommend patient remain on current diet until discharge, and continue to monitor for clinical s/s of penetration/aspiration and PNA due to patient's history of dysphagia and poor oromotor control. Patient may also benefit from thermal sensory input to increase oral awareness prior to feedings. Thank you for your consultation. Please contact Speech Therapy at ext. [phone] with questions regaring this patient's care. Yumiko Talbert MA CCC-INSPECTION SUPERVISOR
--- NOTE | 2019-10-17 13:00 | NUR ---
Patient discharged off the unit at this time via stretcher. Patient escorted by [employer] and security. Patient belongings, medication from home, and discharge packet given to [employer]. Patient is alert, baseline confusion, nonsensical garbled speech. No s/s of distress noted, resps even and unlabored on room air. Pt calm and cooperative with transfer.
--- NOTE | 2019-10-18 08:12 | NUR ---
PHYSICAL THERAPY CO-SIGN I approve of the Physical Therapy notes written above. JOSUE NIELSON PT, DPT
--- NOTE | 2019-10-18 09:46 | NUR ---
OCCUPATIONAL THERAPY CO-SIGN I approve of the Occupational Therapy notes written above. Lachelle Barnett OTR/L
== END 2019-10-17 13:00 | disposition other institution (70) | DRG 883 ==
LOC: 3N 08:56
PROVIDERS: Counselor Professional; Internal Medicine; ADMIT Psychiatry & Neurology Psychiatry
DX: F63.81 Intermittent explosive disorder (principal); E44.0 Moderate protein-calorie malnutrition; G20 Parkinson's disease; R33.9 Retention of urine, unspecified; Z03.818 Encounter for observation for suspected exposure to other biological agents ruled out; G30.9 Alzheimer's disease, unspecified; F02.80 Dementia in other diseases classified elsewhere, unspecified severity, without behavioral disturbance, psychotic disturbance, mood disturbance, and anxiety; I10 Essential (primary) hypertension; N50.9 Disorder of male genital organs, unspecified; N40.1 Benign prostatic hyperplasia with lower urinary tract symptoms; Z87.01 Personal history of pneumonia (recurrent); Z68.22 Body mass index [BMI] 22.0-22.9, adult; Z88.8 Allergy status to other drugs, medicaments and biological substances